=== PATIENT | female | born 1930 | race Caucasian/White ===

== ENCOUNTER 2016-12-05 16:43 | Emergency (ER) | payer MEDICARE, BC ==
[2016-12-05] MEDS ORDERED: Sodium Chloride 0.9% 10 ML Syringe FLUSH PRN (17:22)
[2016-12-05] MEDS ORDERED: Sodium Chloride 0.9% 1,000 ML IV STA (17:22)
--- NOTE | 2016-12-05 17:27 | EDM.PDOC ---
ED HPI GENERAL MEDICAL PROBLEM - General Chief Complaint: Abdominal Pain Stated Complaint: ABDOMINAL RT FLANK PAIN Time Seen by Provider: 12/05/16 17:15 Source of Information: Reports: Patient, Family, RN Notes Reviewed History Limitations: Reports: No Limitations - History of Present Illness INITIAL COMMENTS - FREE TEXT/NARRATIVE: 86-year-old female presents emergency department day complaint of abdominal pain , abdominal pain has been going on for several days she notes the pain is significantly worse when she eats she has had some chills but no fevers she is passing gas does get not stated with the pain no vomiting only history of abdominal surgeries a hysterectomy and hernia repair does have a history of small bowel obstruction - Related Data Allergies Allergy/AdvReac Type Severity Reaction Status Date / Time codeine AdvReac Nausea and Verified 12/05/16 17:05 Vomiting Home Meds: Home Meds Albuterol Sulfate [Proair Hfa] 8.5 gm IH ASDIRECTED 08/31/13 [History] Arformoterol [Brovana] 2 ml IH BID 08/31/13 [History] Aspirin [[place] Aspirin] 81 mg PO DAILY 08/31/13 [History] Budesonide [Pulmicort] 0.5 mg IH BID 08/31/13 [History] HCTZ/Triamterene [Maxzide 25-37.5 MG] 1 tab PO DAILY 08/31/13 [History] Omeprazole [Prilosec] 20 mg PO DAILY 08/31/13 [History] Simvastatin [Zocor] 20 mg PO BEDTIME 08/31/13 [History] Calcium Citrate/Vitamin D3 [Calcium Citrate with D Tablet] 1 tab PO BID [History] Acetaminophen/HYDROcodone [[place] 325-5 MG] 1 - 2 tab PO Q4H PRN #30 tablet 11/24 [Rx] Magnesium Oxide 400 mg PO DAILY #100 tablet 11/24/14 [Rx] ALPRAZolam [Xanax] 0.25 mg PO DAILY PRN 04/19/15 [History] *02 1 - 2 liter INH ASDIRECTED 10/10/15 [History] Albuterol [Proair HFA] 2 gm INH Q4HR PRN 10/22/15 [History] Past Medical History HEENT History: Reports: Cataract, Impaired Vision Cardiovascular History: Reports: Arrhythmia, CAD, High Cholesterol, Hypertension , [place], Stents Respiratory History: Reports: COPD Gastrointestinal History: Reports: Colon Polyp 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: 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 History: Reports: Fracture, Other (See Below) Other 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 History: compression fractures Psychiatric History: Reports: Anxiety, Depression - Infectious Disease History Infectious Disease History: Reports: Chicken Pox, Measles, Mumps - Past Surgical History Cardiovascular Surgical History: Reports: Coronary Artery Stent GI Surgical History: Reports: Colon, Colonoscopy, EGD, Hernia, Abdominal Social & Family History - Tobacco Use Smoking Status *Q: Never Smoker Second Hand Smoke Exposure: No - Recreational Drug Use Recreational Drug Use: No ED ROS GENERAL - Review of Systems Review Of Systems: See Below Constitutional: Reports: Chills HEENT: Reports: No Symptoms Respiratory: Reports: Shortness of Breath (None beyond baseline) Cardiovascular: Reports: No Symptoms GI/Abdominal: Reports: Abdominal Pain, Flatus, Nausea. Denies: Vomiting : Reports: No Symptoms 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: Reports: No Symptoms Skin: Reports: No Symptoms ED EXAM, GI/ABD - Physical Exam Exam: See Below Text/Narrative:: General: Female, not in any distress, alert and oriented x3 HEENT: head is atraumatic normocephalic, eyes pupils equal round reactive to light, sclera clear no conjunctivitis appreciated. Ears tympanic membranes clear and green landmarks and light reflex are present bilaterally canals are clear. Nose no septal deviation, nares are clear, no blood present. Mouth mucosa is moist and pink no erythema or exudate noted in soft palate, tongue is midline uvula is midline, dentition is intact. Neck: Supple no thyromegaly no tracheal deviation. Nodes: Cervical nodes subclavicular nodes nontender no palpable lymphadenopathy noted. Lungs: Breath sounds are distant on appreciate any adventitious noises CV: Regular rate and rhythm S1 and S2 appreciated no murmurs rubs or gallops noted. Abdomen: Soft, tender to palpation right upper quadrant also tender to palpation left lower corner, no palpable masses or organomegaly appreciated, no distention no guarding bowel sounds are present, . Neuro: Cranial nerves II through XII grossly intact Skin: Warm and dry, intact Extremities: No lower extremity edema appreciated, . Course - Vital Signs Last Recorded V/S: Last Vital Signs Temp 96.5 F 12/05/16 17:13 Pulse 63 12/05/16 18:33 Resp 16 12/05/16 17:13 BP 191/79 H 12/05/16 18:33 Pulse Ox 86 L 12/05/16 18:33 - Orders/Labs/Meds Orders: Active Orders 24 hr Category Date Time Status Peripheral IV Care [RC] . DIRECTED Care 12/05/16 17:23 Active Abdomen Pelvis w Cont [CT] Urgent Exams 12/05/16 17:22 Taken Iopamidol [Isovue-300 (61%)] Med 12/05/16 17:30 Active 68 ml IV . DIRECTED Sodium Chloride 0.9% [Normal Saline] 1,000 ml Med 12/05/16 17:22 Active IV .BOLUS Sodium Chloride 0.9% [Normal Saline] 70 ml Med 12/05/16 17:30 Active IV ASDIRECTED Sodium Chloride 0.9% [Saline Flush] Med 12/05/16 17:22 Active 10 ml FLUSH ASDIRECTED PRN Peripheral IV Insertion Adult [OM.PC] Urgent Oth 12/05/16 17:22 Ordered Medication Orders Sodium Chloride (Normal Saline) 1,000 mls @ 500 mls/hr IV .BOLUS STA Stop: 12/05/16 19:21 Last Admin: 12/05/16 17:36 Dose: 500 mls/hr Sodium Chloride (Normal Saline) 70 mls @ 3 mls/sec IV ASDIRECTED LEISA Last Admin: 12/05/16 17:51 Dose: 3 mls/sec Iopamidol (Isovue-300 (61%)) 68 ml IV . DIRECTED LEISA Last Admin: 12/05/16 17:51 Dose: 68 ml Sodium Chloride (Saline Flush) 10 ml FLUSH ASDIRECTED PRN PRN Reason: Keep Vein Open Last Admin: 12/05/16 17:51 Dose: 10 ml Labs: Laboratory Tests 12/05/16 12/05/16 12/05/16 Range/Units 17:22 17:22 17:22 WBC 9.5 (4.5-11.0) K/uL RBC 4.16 (3.30-5.50) M/uL Hgb 12.7 (12.0-15.0) g/dL Hct 38.4 (36.0-48.0) % MCV 92 (80-98) fL MCH 31 (27-31) pg MCHC 33 (32-36) % Plt Count 335 (150-400) K/uL Neut % (Auto) 70 H (36-66) % Lymph % (Auto) 21 L (24-44) % [place] % (Auto) 8 H (2-6) % Eos % (Auto) 1 L (2-4) % Baso % (Auto) 0 (0-1) % Sodium 131 L (140-148) mmol/L Potassium 3.8 (3.6-5.2) mmol/L Chloride 94 L (100-108) mmol/L Carbon Dioxide 27 (21-32) mmol/L Anion Gap 13.8 (5.0-14.0) mmol/L BUN 23 H (7-18) mg/dL Creatinine 1.0 (0.6-1.0) mg/dL Est Cr Clr Drug Dosing 28.92 mL/min Estimated GFR (MDRD) 53 L (>60) Glucose 117 H (74-106) mg/dL Lactic Acid 1.8 (0.4-2.0) mmol/L Calcium 8.4 L (8.5-10.1) mg/dL Total Bilirubin 0.4 (0.2-1.0) mg/dL AST 19 (15-37) U/L ALT 18 (12-78) U/L Alkaline Phosphatase 102 (46-116) U/L Troponin I < 0.017 (0.000-0.056) ng/mL Total Protein 7.0 (6.4-8.2) g/dL Albumin 3.3 L (3.4-5.0) g/dL Globulin 3.7 H (2.3-3.5) g/dL Albumin/Globulin Ratio 0.9 L (1.2-2.2) Lipase 132 (73-393) U/L Urine Color Urine Appearance Urine pH (4.5-8.0) Ur Specific [place] (1.008-1.030) Urine Protein (NEGATIVE) mg/dL Urine Glucose (UA) (NEGATIVE) mg/dL Urine Ketones (NEGATIVE) mg/dL Urine Occult Blood (NEGATIVE) Urine Nitrite (NEGATIVE) Urine Bilirubin (NEGATIVE) Urine Urobilinogen (NORMAL) mg/dL Ur Leukocyte Esterase (NEGATIVE) Urine RBC (0-5) Urine WBC (0-5) Ur Epithelial Cells Amorphous Sediment Urine Bacteria Urine Mucus 12/05/16 Range/Units 18:33 WBC (4.5-11.0) K/uL RBC (3.30-5.50) M/uL Hgb (12.0-15.0) g/dL Hct (36.0-48.0) % MCV (80-98) fL MCH (27-31) pg MCHC (32-36) % Plt Count (150-400) K/uL Neut % (Auto) (36-66) % Lymph % (Auto) (24-44) % [place] % (Auto) (2-6) % Eos % (Auto) (2-4) % Baso % (Auto) (0-1) % Sodium (140-148) mmol/L Potassium (3.6-5.2) mmol/L Chloride (100-108) mmol/L Carbon Dioxide (21-32) mmol/L Anion Gap (5.0-14.0) mmol/L BUN (7-18) mg/dL Creatinine (0.6-1.0) mg/dL Est Cr Clr Drug Dosing mL/min Estimated GFR (MDRD) (>60) Glucose (74-106) mg/dL Lactic Acid (0.4-2.0) mmol/L Calcium (8.5-10.1) mg/dL Total Bilirubin (0.2-1.0) mg/dL AST (15-37) U/L ALT (12-78) U/L Alkaline Phosphatase (46-116) U/L Troponin I (0.000-0.056) ng/mL Total Protein (6.4-8.2) g/dL Albumin (3.4-5.0) g/dL Globulin (2.3-3.5) g/dL Albumin/Globulin Ratio (1.2-2.2) Lipase (73-393) U/L Urine Color Yellow Urine Appearance Clear Urine pH 7.0 (4.5-8.0) Ur Specific [place] 1.005 L (1.008-1.030) Urine Protein Negative (NEGATIVE) mg/dL Urine Glucose (UA) Normal (NEGATIVE) mg/dL Urine Ketones Negative (NEGATIVE) mg/dL Urine Occult Blood Negative (NEGATIVE) Urine Nitrite Negative (NEGATIVE) Urine Bilirubin Negative (NEGATIVE) Urine Urobilinogen Normal (NORMAL) mg/dL Ur Leukocyte Esterase Negative (NEGATIVE) Urine RBC 0-5 (0-5) Urine WBC 0-5 (0-5) Ur Epithelial Cells Rare Amorphous Sediment Rare Urine Bacteria Not seen Urine Mucus Few Meds: Medications Generic Name Dose Route Start Last Admin Trade Name Freq PRN Reason Stop Dose Admin Sodium Chloride 1,000 mls @ 500 mls/hr 12/05/16 17:22 12/05/16 17:36 Normal Saline IV 12/05/16 19:21 500 mls/hr .BOLUS STA Administration Sodium Chloride 70 mls @ 3 mls/sec 12/05/16 17:30 12/05/16 17:51 Normal Saline IV 3 mls/sec ASDIRECTED LEISA Administration Iopamidol 68 ml 12/05/16 17:30 12/05/16 17:51 Isovue-300 (61%) IV 68 ml . DIRECTED LEISA Administration Sodium Chloride 10 ml 12/05/16 17:22 12/05/16 17:51 Saline Flush FLUSH 10 ml ASDIRECTED PRN Administration Keep Vein Open Discontinued Medications Generic Name Dose Route Start Last Admin Trade Name F[place]ran PRN Reason Stop Dose Admin Sodium Chloride 10 ml 12/05/16 17:30 12/05/16 17:36 Saline Flush FLUSH 12/05/16 17:31 10 ml ONETIME ONE Administration Departure - Departure Time of Disposition: 19:12 Disposition: Home, Self-Care 01 Condition: good Clinical Impression: Pneumonia Qualifiers: Pneumonia type: due to unspecified organism Laterality: left Lung location: lower lobe of lung Qualified Code(s): J18.1 - Lobar pneumonia, unspecified organism - Discharge Information Forms: ED Department Discharge Additional Instructions: Take full course of antibiotics, followup with your primary care provider on Saturday - My Orders Last 24 Hours: My Active Orders 12/05/16 17:22 Abdomen Pelvis w Cont [CT] Urgent Sodium Chloride 0.9% [Normal Saline] 1,000 ml IV .BOLUS Sodium Chloride 0.9% [Saline Flush] 10 ml FLUSH ASDIRECTED PRN Peripheral IV Insertion Adult [OM.PC] Urgent 12/05/16 17:23 Peripheral IV Care [RC] . DIRECTED 12/05/16 17:30 Iopamidol [Isovue-300 (61%)] 68 ml IV . DIRECTED Sodium Chloride 0.9% [Normal Saline] 70 ml IV ASDIRECTED - Assessment/Plan Last 24 Hours: My Active Orders 12/05/16 17:22 Abdomen Pelvis w Cont [CT] Urgent Sodium Chloride 0.9% [Normal Saline] 1,000 ml IV .BOLUS Sodium Chloride 0.9% [Saline Flush] 10 ml FLUSH ASDIRECTED PRN Peripheral IV Insertion Adult [OM.PC] Urgent 12/05/16 17:23 Peripheral IV Care [RC] . DIRECTED 12/05/16 17:30 Iopamidol [Isovue-300 (61%)] 68 ml IV . DIRECTED Sodium Chloride 0.9% [Normal Saline] 70 ml IV ASDIRECTED Plan: Assessment Acuity = acute Site and laterality = community-acquired pneumonia left lower lobe complicated patient with known history of chronic obstructive pulmonary disease Etiology = suspicious for bacterial cause Manifestations = chills Location of injury = home CBC within normal limits sodium low at 131 consistent hyponatremia albumin low at 3.3 consistent hypoalbuminemia Lab values = CT scan of the abdomen shows a new infiltrate in the left lower lobe concerning for pneumonia otherwise no acute intra-abdominal process noted Plan Discussed hospitalization versus discharge to home outpatient therapy she would like to try outpatient treatment she does have followup appointment with her primary care on Saturday of this week will start her on Levaquin 500 by mouth daily x7 days Patient was in agreement with the plan all questions were answered, they were instructed to return to the emergency department or call for worsening symptoms. This note was dictated using [employer] voice recognition software please call with any questions.
[2016-12-05] MEDS ORDERED: Sodium Chloride 0.9% 10 ML Syringe FLUSH ONE (17:30)
[2016-12-05] MEDS ORDERED: Iopamidol 612 MG/ML 100 ML Bottle IV SCH (17:30)
[2016-12-05 18:34] VITALS: BP 191/79
== END 2016-12-05 19:30 | disposition home or self-care (01) ==
LOC: JP.ED 16:43
DX: J18.1 Lobar pneumonia, unspecified organism (principal); H54.7 Unspecified visual loss; E78.00 Pure hypercholesterolemia, unspecified; F41.9 Anxiety disorder, unspecified; I25.2 Old myocardial infarction; Z95.5 Presence of coronary angioplasty implant and graft; Z88.5 Allergy status to narcotic agent; Z79.82 Long term (current) use of aspirin; Z79.899 Other long term (current) drug therapy
CPT/HCPCS: 36415; 74177; 80053; 81001; 83605; 83690; 84484; 85025; 96360; 96361; 99283; 99284; J7030; J7040; J7050; Q9967

== ENCOUNTER 2017-04-25 19:38 | Emergency (ER) | payer MEDICARE, BC ==
[2017-04-25] MEDS ORDERED: Acetaminophen/HYDROcodone 325-5 MG Tab PO ONE (21:45)
--- NOTE | 2017-04-25 21:51 | EDM.PDOC ---
ED HPI GENERAL MEDICAL PROBLEM - General Chief Complaint: Back Pain or Injury Stated Complaint: HURT BACK Time Seen by Provider: 04/25/17 21:33 Source of Information: Reports: Patient, Family History Limitations: Reports: No Limitations - History of Present Illness INITIAL COMMENTS - FREE TEXT/NARRATIVE: 86 years old female patient presented with chief complaint of sudden onset low back pain after moving a chair at home. Patient lived by herself. No falls. She is still able to walk. Pain is worse with any movement or activities or bending or twisting. Previous history of compression fracture of the thoracic spine. Denies any focal weakness or numbness in her legs. No loss of control of urine or stool. Denies any fever. Denies any urinary symptoms. Lower back Pain Score (Numeric/FACES): 8 - Related Data Allergies Allergy/AdvReac Type Severity Reaction Status Date / Time codeine AdvReac Nausea and Verified 12/05/16 17:05 Vomiting Home Meds: Home Meds Albuterol Sulfate [Proair Hfa] 8.5 gm IH ASDIRECTED 08/31/13 [History] Arformoterol [Brovana] 2 ml IH BID 08/31/13 [History] Aspirin [[place] Aspirin] 81 mg PO DAILY 08/31/13 [History] Budesonide [Pulmicort] 0.5 mg IH BID 08/31/13 [History] HCTZ/Triamterene [Maxzide 25-37.5 MG] 1 tab PO DAILY 08/31/13 [History] Omeprazole [Prilosec] 20 mg PO DAILY 08/31/13 [History] Simvastatin [Zocor] 20 mg PO BEDTIME 08/31/13 [History] Calcium Citrate/Vitamin D3 [Calcium Citrate with D Tablet] 1 tab PO BID [History] Acetaminophen/HYDROcodone [[place] 325-5 MG] 1 - 2 tab PO Q4H PRN #30 tablet 11/24 [Rx] Magnesium Oxide 400 mg PO DAILY #100 tablet 11/24/14 [Rx] ALPRAZolam [Xanax] 0.25 mg PO DAILY PRN 04/19/15 [History] *02 1 - 2 liter INH ASDIRECTED 10/10/15 [History] Albuterol [Proair HFA] 2 gm INH Q4HR PRN 10/22/15 [History] Past Medical History HEENT History: Reports: Cataract, Impaired Vision Cardiovascular History: Reports: Arrhythmia, CAD, High Cholesterol, Hypertension , [place], Stents Respiratory History: Reports: COPD Gastrointestinal History: Reports: Colon 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 History: Reports: Fracture, Other (See Below) Other 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 History: compression fractures Psychiatric History: Reports: Anxiety, Depression - Infectious Disease History Infectious Disease History: Reports: Chicken Pox - Past Surgical History Cardiovascular Surgical History: Reports: Coronary Artery Stent GI Surgical History: Reports: Colon, Colonoscopy, EGD, Hernia, Abdominal Social & Family History - Tobacco Use Smoking Status *Q: Never Smoker Second Hand Smoke Exposure: No - Caffeine Use Caffeine Use: Reports: Coffee - Recreational Drug Use Recreational Drug Use: No ED ROS GENERAL - Review of Systems Review Of Systems: ROS reveals no pertinent complaints other than HPI. ED EXAM,LOWER BACK PAIN/INJURY - Physical Exam Exam: See Below Exam Limited By: No Limitations General Appearance: Alert, No Apparent Distress Head: Atraumatic, Normocephalic Neck: Normal Inspection, Supple, Non-Tender, Full Range of Motion Respiratory/Chest: No Respiratory Distress, Lungs Clear, Normal Breath Sounds, No Accessory Muscle Use, Chest Non-Tender Cardiovascular: Normal Peripheral Pulses, Regular Rate, Rhythm, No Edema, No Gallop, No JVD, No Murmur, No Rub GI/Abdominal: Normal Bowel Sounds, Soft, Non-Tender, No Organomegaly, No Distention, No Abnormal Bruit, No Mass Back Exam: Normal Inspection, Decreased Range of Motion (Tenderness over the lower lumbar spine. No deformity. No erythema.), Vertebral Tenderness. No: Full Range of Motion, CVA Tenderness (L) Course - Vital Signs Last Recorded V/S: Last Vital Signs Temp 36.0 C 04/25/17 20:57 Pulse 73 04/25/17 21:57 Resp 20 04/25/17 21:57 BP 208/79 H 04/25/17 21:57 Pulse Ox 91 L 04/25/17 21:57 - Orders/Labs/Meds Orders: Active Orders 24 hr Category Date Time Status Lumbar Spine wo Cont [CT] Stat Exams 04/25/17 21:46 Taken Meds: Medications Discontinued Medications Generic Name Dose Route Start Last Admin Trade Name Freq PRN Reason Stop Dose Admin Hydrocodone Bitart/Acetaminophen 1 tab 04/25/17 21:45 10/05/17 22:01 [place] 325-5 Mg PO 04/25/17 21:46 1 tab ONETIME ONE Administration - Re-Assessments/Exams Free Text/Narrative Re-Assessment/Exam: 04/25/17 21:50 Patient was seen and examined shortly after arrival. Given one bottle of [place] 5 /[address] lumbar spine shows compression deformity at L3. Also disc protrusion at L4-L5 was foraminal narrowing. Patient was advised that she needs admission for pain control and possible placement. The patient and her family refused admission and signed AGAINST MEDICAL ADVICE. and stated that her pain improved and she is feeling that she will be safe at home especially her family will stay with her tonight and her daughters, to stay with her tomorrow as well. Advised to follow-up with her primary doctor tomorrow and review CT results and possible referral to her neurosurgeon back. Patient agrees with the plan. 04/25/17 23:50 Departure - Departure Time of Disposition: 23:53 Disposition: Against Medical Advice 07 Condition: Fair Clinical Impression: Compression deformity of vertebra - Discharge Information Instructions: Back Injury Prevention, [id number], Back Pain, Adult, Easy-to- Read, Pain Medicine Instructions, [id number] Referrals: Dennis Ruiz MD [Primary Care Provider] - Forms: ED Department Discharge Additional Instructions: Follow-up with her primary doctor tomorrow for reevaluation and CT results review. Come back if symptom worsen - My Orders Last 24 Hours: My Active Orders 04/25/17 21:46 Lumbar Spine wo Cont [CT] Stat - Assessment/Plan Last 24 Hours: My Active Orders 04/25/17 21:46 Lumbar Spine wo Cont [CT] Stat
[2017-04-25 21:58] VITALS: BP 208/79
== END 2017-04-26 00:09 | disposition left against medical advice (07) ==
LOC: JP.ED 19:38
DX: M43.8X6 Other specified deforming dorsopathies, lumbar region (principal); I25.10 Atherosclerotic heart disease of native coronary artery without angina pectoris; E78.00 Pure hypercholesterolemia, unspecified; I10 Essential (primary) hypertension; I25.2 Old myocardial infarction; J44.9 Chronic obstructive pulmonary disease, unspecified; F41.9 Anxiety disorder, unspecified; F32.9 Major depressive disorder, single episode, unspecified; Z95.5 Presence of coronary angioplasty implant and graft; Z98.890 Other specified postprocedural states; Z79.899 Other long term (current) drug therapy; Z79.82 Long term (current) use of aspirin; Z88.5 Allergy status to narcotic agent
CPT/HCPCS: 72131; 99284; A9270

== ENCOUNTER 2017-06-14 10:32 | Emergency (ER) | payer MEDICARE, BC ==
[2017-06-14 11:41] VITALS: BP 198/77
--- NOTE | 2017-06-14 12:13 | EDM.PDOC ---
ED HPI GENERAL MEDICAL PROBLEM - General Chief Complaint: Chest Pain Stated Complaint: PAIN UNDER LEFT ARM,SHOULDER Time Seen by Provider: 06/14/17 11:20 Source of Information: Reports: Patient, Family History Limitations: Reports: No Limitations - History of Present Illness INITIAL COMMENTS - FREE TEXT/NARRATIVE: 87-year-old female who recently underwent a spinal procedure was home this morning when she developed a left-sided cramp and spasm in her chest extending around the anterior aspect of the chest. There was some difficulty breathing temporarily but it went away. She told her family and they wanted her checked for a "heart attack". She has no cough or shortness of breath. Onset: Sudden Location: Reports: Chest Severity: Moderate Worsens with: Reports: Other (Hurts to palpate the sore area), Movement Left Chest Pain Score (Numeric/FACES): 2 - Related Data Allergies Allergy/AdvReac Type Severity Reaction Status Date / Time codeine AdvReac Nausea and Verified 06/14/17 11:16 Vomiting Home Meds: Home Meds Albuterol Sulfate [Proair Hfa] 8.5 gm IH ASDIRECTED 08/31/13 [History] Aspirin [[place] Aspirin] 81 mg PO DAILY 08/31/13 [History] Budesonide [Pulmicort] 0.5 mg IH BID 08/31/13 [History] HCTZ/Triamterene [Maxzide 25-37.5 MG] 1 tab PO DAILY 08/31/13 [History] Omeprazole [Prilosec] 20 mg PO DAILY 08/31/13 [History] Simvastatin [Zocor] 20 mg PO BEDTIME 08/31/13 [History] Calcium Citrate/Vitamin D3 [Calcium Citrate with D Tablet] 1 tab PO BID [History] Magnesium Oxide 400 mg PO DAILY #100 tablet 11/24/14 [Rx] ALPRAZolam [Xanax] 0.25 mg PO BID PRN 04/19/15 [History] *02 1 - 2 liter INH ASDIRECTED 10/10/15 [History] Albuterol [Proair HFA] 2 gm INH Q4HR PRN 10/22/15 [History] Acetaminophen 1 tab PO Q4H PRN 06/14/17 [History] Acetaminophen/HYDROcodone [[place] 325-5 MG] 1 tab PO Q6H PRN 06/14/17 [History] Albuterol [Proventil Neb Soln] 1 dose INH ASDIRECTED 06/14/17 [History] Docusate Sodium [Colace] 1 cap PO BID 06/14/17 [History] Ibuprofen 400 mg PO ASDIRECTED 06/14/17 [History] Ipratropium [Atrovent] 1 dose INH QID 06/14/17 [History] Lutein Extract/Zeaxanthin Ext [Lutein 15 MG Softgel] 1 tab PO DAILY 06/14/17 [ History] Polyethylene Glycol 3350 [MiraLAX] 17 gm PO BEDTIME 06/14/17 [History] Past Medical History HEENT History: Reports: Cataract, Impaired Vision Cardiovascular History: Reports: Arrhythmia, CAD, High Cholesterol, Hypertension , [place], Stents Respiratory History: Reports: COPD Gastrointestinal History: Reports: 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: 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 History: Reports: Fracture, Other (See Below) Other 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 History: compression fractures Psychiatric History: Reports: Anxiety, Depression - Infectious Disease History Infectious Disease History: Reports: Chicken Pox - Past Surgical History HEENT Surgical History: Reports: Cataract Surgery Cardiovascular Surgical History: Reports: Coronary Artery Stent GI Surgical History: Reports: Colon, Colonoscopy, EGD, Hernia, Abdominal Female Surgical History: Reports: Hysterectomy Social & Family History - Tobacco Use Smoking Status *Q: Never Smoker Second Hand Smoke Exposure: No - Caffeine Use Caffeine Use: Reports: Coffee - Recreational Drug Use Recreational Drug Use: No ED ROS GENERAL - Review of Systems Review Of Systems: See Below Constitutional: Denies: Fever, Chills, Malaise Respiratory: Reports: Pleuritic Chest Pain. Denies: Shortness of Breath Cardiovascular: Reports: Chest Pain. Denies: Palpitations GI/Abdominal: Denies: Abdominal Pain, Nausea, Vomiting 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: Reports: Back Pain (Chronic and stable) Skin: Denies: Bruising ED EXAM, GENERAL - Physical Exam Exam: See Below Exam Limited By: No Limitations General Appearance: Alert, No Apparent Distress Respiratory/Chest: No Respiratory Distress, Other (Patient has decreased breath sounds on the left side but no rales or rhonchi, no wheezing). No: Chest Non- Tender (Patient has tenderness to palpation along the left anterior costochondral area) GI/Abdominal: Non-Tender Course - Vital Signs Last Recorded V/S: Last Vital Signs Temp 96.3 F 06/14/17 11:12 Pulse 70 06/14/17 11:40 Resp 16 06/14/17 11:40 BP 198/77 H 06/14/17 11:40 Pulse Ox 93 L 06/14/17 11:40 - Orders/Labs/Meds Labs: Laboratory Tests 06/14/17 Range/Units 11:42 Troponin I 0.017 (0.000-0.056) ng/mL - Re-Assessments/Exams Free Text/Narrative Re-Assessment/Exam: 06/14/17 12:12 Troponin was negative. Patient was reassured that this was not cardiac pain which is all that she was concerned about. Over the next several days she'll return if worsening or concerns. Departure - Departure Time of Disposition: 12:24 Disposition: Home, Self-Care 01 Condition: Good Clinical Impression: Costochondritis, Atypical chest pain - Discharge Information Instructions: Nonspecific Chest Pain, [id number] Referrals: Dennis Ruiz MD [Primary Care Provider] - Forms: ED Department Discharge Care Plan Goals: Continue with your current medications, increase activity as tolerated and return anytime if worsening or concerns. A heating pad to the sore area and ibuprofen or naproxen may help.
== END 2017-06-14 12:24 | disposition home or self-care (01) ==
LOC: JP.ED 10:32
DX: M94.0 Chondrocostal junction syndrome [Tietze] (principal); I10 Essential (primary) hypertension; J44.9 Chronic obstructive pulmonary disease, unspecified; E78.00 Pure hypercholesterolemia, unspecified; Z79.899 Other long term (current) drug therapy; Z88.5 Allergy status to narcotic agent; Z79.82 Long term (current) use of aspirin
CPT/HCPCS: 36415; 84484; 99284

== ENCOUNTER 2017-06-18 18:40 | Inpatient (IN) | payer MEDICARE, BC ==
[2017-06-18] MEDS ORDERED: Albuterol/Ipratropium 3.0-0.5 MG/3 ML Neb Soln NEB ONE (19:05)
[2017-06-18] MEDS ORDERED: Sodium Chloride 0.9% 10 ML Syringe FLUSH PRN (19:05)
[2017-06-18] MEDS ORDERED: Sodium Chloride 0.9% 1,000 ML IV SCH (19:15)
[2017-06-18] MEDS ORDERED: Acetaminophen/HYDROcodone 325-5 MG Tab PO ONE (19:44)
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
[2017-06-18] MEDS ORDERED: Albuterol 0.083% 2.5 MG/3 ML Neb Soln NEB ONE (19:57)
[2017-06-18] MEDS ORDERED: Budesonide 0.5 MG/2 ML Neb Susp NEB ONE (19:57)
[2017-06-18] MEDS ORDERED: Furosemide 20 MG/2 ML VIAL IVPUSH ONE (23:15)
[2017-06-18] MEDS ORDERED: Zolpidem 5 MG Tab PO PRN (23:15)
[2017-06-18] MEDS ORDERED: Acetaminophen 325 MG Tab PO PRN (23:15)
[2017-06-18] MEDS ORDERED: Albuterol 0.083% 2.5 MG/3 ML Neb Soln NEB PRN (23:15)
[2017-06-18] MEDS ORDERED: Docusate Sodium 100 MG Cap PO PRN (23:15)
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
[2017-06-18] MEDS: methylPREDNISolone Sodium Succinate 125 MG/2 ML SDV IVPUSH SCH (23:58)
[2017-06-19] MEDS: Acetaminophen 325 MG Tab PO PRN (00:48)
[2017-06-19] MEDS: Acetaminophen/HYDROcodone 325-5 MG Tab PO PRN ×3 (02:53→16:30)
[2017-06-19] MEDS: Albuterol/Ipratropium 3.0-0.5 MG/3 ML Neb Soln NEB SCH ×4 (07:23→19:59)
[2017-06-19] MEDS ORDERED: Pantoprazole 40 MG Vial IV SCH ×2 (07:30→09:00)
[2017-06-19] MEDS: Hydrochlorothiazide/Triamterene 25-37.5 Tab PO SCH (08:34)
[2017-06-19] MEDS: Aspirin 81 MG Tab.EC PO SCH (08:34)
[2017-06-19] MEDS: Enoxaparin 40 MG/0.4 ML Syringe SUBCUT SCH (08:34)
[2017-06-19] MEDS: Magnesium Oxide 400 MG Tab PO SCH (08:34)
--- NOTE | 2017-06-19 09:08 | CR ---
Portable chest Comparison: 23 October 2015. Findings: There has been development of cardiomegaly. There is mild vascular engorgement. There is mi ld increase of the interstitial markings. There are no pleural effusions. There are no alveolar infil trates. Impression: 1. Mild CHF.
[2017-06-19] MEDS: methylPREDNISolone Sodium Succinate 125 MG/2 ML SDV IVPUSH SCH ×3 (10:11→23:57)
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
[2017-06-19] MEDS ORDERED: Furosemide 20 MG/2 ML VIAL IVPUSH ONE (11:45)
[2017-06-19] MEDS: ALPRAZolam 0.25 MG Tab PO PRN ×2 (11:56→20:47)
[2017-06-19] MEDS: Polyethylene Glycol 3350 Powder 17 GM Packet PO SCH (19:59)
[2017-06-19] MEDS: Simvastatin 20 MG Tab PO SCH (19:59)
[2017-06-20] MEDS: Acetaminophen 325 MG Tab PO PRN (02:51)
[2017-06-20] MEDS: Acetaminophen/HYDROcodone 325-5 MG Tab PO PRN ×3 (05:42→22:17)
[2017-06-20] MEDS: Albuterol/Ipratropium 3.0-0.5 MG/3 ML Neb Soln NEB SCH ×4 (07:21→20:41)
[2017-06-20] MEDS: Pantoprazole 40 MG Tab.CR PO SCH (07:26)
[2017-06-20] MEDS: methylPREDNISolone Sodium Succinate 125 MG/2 ML SDV IVPUSH SCH (07:27)
[2017-06-20] MEDS ORDERED: Furosemide 40 MG/4 ML VIAL IVPUSH ONE (08:27)
[2017-06-20] MEDS ORDERED: Furosemide 20 MG/2 ML VIAL IV ONE (08:45)
[2017-06-20] MEDS: Enoxaparin 40 MG/0.4 ML Syringe SUBCUT SCH (08:49)
[2017-06-20] MEDS: Aspirin 81 MG Tab.EC PO SCH (08:49)
[2017-06-20] MEDS: ALPRAZolam 0.25 MG Tab PO PRN ×2 (08:50→22:20)
[2017-06-20] MEDS: Hydrochlorothiazide/Triamterene 25-37.5 Tab PO SCH (08:50)
[2017-06-20] MEDS: Magnesium Oxide 400 MG Tab PO SCH (08:50)
--- NOTE | 2017-06-20 10:48 | PCM.PN ---
- General Info Date of Service: 06/20/17 Subjective Update: Ms. Valdez has been stable since yesterday, but continues to experience increased shortness of breath from baseline. She was qualified for home oxygen today based and an oxygen saturation on room air at rest of 86%. She remains somewhat weak and unsteady with ambulation and has been encouraged to consider short-term [facility] placement for restorative physical therapy and occupational therapy. Functional Status: Reports: Tolerating Diet, Urinating - Review of Systems General: Reports: Weakness. Denies: Fever, Chills Pulmonary: Reports: Shortness of Breath. Denies: Pleuritic Chest Pain, Cough, Sputum, Hemoptysis, Wheezing Cardiovascular: Reports: Dyspnea on Exertion, Edema. Denies: Chest Pain, Palpitations, Orthopnea, PND Gastrointestinal: Reports: No Symptoms - Patient Data Vitals - Most Recent: Last Vital Signs Temp 97.8 F 06/20/17 07:44 Pulse 92 06/20/17 07:44 Resp 17 06/20/17 07:44 BP 165/68 H 06/20/17 07:44 Pulse Ox 89 L 06/20/17 07:44 Weight - Most Recent: 109 lb 8 oz I&O - Last 24 Hours: Intake & Output 06/19/17 06/20/17 06/20/17 22:59 06:59 14:59 Intake Total 500 500 520 Output Total 225 650 400 Balance 275 -150 120 Lab Results Last 24 Hours: Laboratory Results - last 24 hr 06/20/17 Range/Units 04:33 Sodium 138 L (140-148) mmol/L Potassium 3.6 (3.6-5.2) mmol/L Chloride 99 L (100-108) mmol/L Carbon Dioxide 31 (21-32) mmol/L Anion Gap 11.6 (5.0-14.0) mmol/L BUN 29 H (7-18) mg/dL Creatinine 1.0 (0.6-1.0) mg/dL Est Cr Clr Drug Dosing 28.47 mL/min Estimated GFR (MDRD) 52 L (>60) Glucose 140 H (74-106) mg/dL Calcium 8.6 (8.5-10.1) mg/dL Magnesium 1.8 (1.8-2.4) mg/dL Med Orders - Current: Current Medications Acetaminophen (Tylenol) 650 mg PO Q4H PRN PRN Reason: Pain (Mild 1-3)/fever Last Admin: 06/20/17 02:51 Dose: 650 mg Acetaminophen (Tylenol) 325 mg PO Q4H PRN PRN Reason: Pain Hydrocodone Bitart/Acetaminophen ([place] 325-5 Mg) 1 tab PO Q6H PRN PRN Reason: Pain Last Admin: 06/20/17 05:42 Dose: 1 tab Albuterol (Proventil Neb Soln) 2.5 mg NEB Q4H PRN PRN Reason: Shortness Of Breath/wheezing Last Admin: 06/19/17 04:15 Dose: 2.5 mg Albuterol/Ipratropium (Duoneb 3.0-0.5 Mg/3 Ml) 3 ml NEB QIDRT [facility] Last Admin: 06/20/17 07:21 Dose: 3 ml Alprazolam (Xanax) 0.25 mg PO BID PRN PRN Reason: Anxiety Last Admin: 06/20/17 08:50 Dose: 0.25 mg Aspirin (Halfprin) 81 mg PO DAILY [facility] Last Admin: 06/20/17 08:49 Dose: 81 mg Docusate Sodium (Colace) 100 mg PO BID PRN PRN Reason: Constipation Enoxaparin Sodium (Lovenox) 40 mg SUBCUT DAILY [facility] Last Admin: 06/20/17 08:49 Dose: 40 mg Magnesium Oxide (Magnesium Oxide) 400 mg PO DAILY [facility] Last Admin: 06/20/17 08:50 Dose: 400 mg Pantoprazole Sodium (Protonix) 40 mg PO ACBREAKFAST [facility] Last Admin: 06/20/17 07:26 Dose: 40 mg Polyethylene Glycol (Miralax) 17 gm PO BEDTIME [facility] Last Admin: 06/19/17 19:59 Dose: Not Given Potassium Chloride (Klor-Con M20) 20 meq PO BID [facility] Prednisone (Prednisone) 40 mg PO WITHBREAKFAST [facility] Simvastatin (Zocor) 20 mg PO BEDTIME [facility] Last Admin: 06/19/17 19:59 Dose: 20 mg Sodium Chloride (Saline Flush) 10 ml FLUSH ASDIRECTED PRN PRN Reason: Keep Vein Open Triamterene/HCTZ (Maxzide 25-37.5 Mg) 1 each PO DAILY [facility] Last Admin: 06/20/17 08:50 Dose: 1 each Zolpidem Tartrate (Ambien) 5 mg PO BEDTIME PRN PRN Reason: Insomnia Discontinued Medications Hydrocodone Bitart/Acetaminophen ([place] 325-5 Mg) 1 tab PO ONETIME ONE Stop: 06/18/17 19:45 Last Admin: 06/18/17 19:48 Dose: 1 tab Albuterol (Proventil Neb Soln) 2.5 mg NEB ONETIME ONE Stop: 06/18/17 19:58 Last Admin: 06/18/17 20:29 Dose: 2.5 mg Albuterol/Ipratropium (Duoneb 3.0-0.5 Mg/3 Ml) 3 ml NEB ONETIME ONE Stop: 06/18/17 19:06 Last Admin: 06/18/17 19:11 Dose: 3 ml Budesonide (Pulmicort) 0.5 mg NEB ONETIME ONE Stop: 06/18/17 19:58 Last Admin: 06/18/17 20:15 Dose: 0.5 mg Furosemide (Lasix) 20 mg IVPUSH NOW ONE Stop: 06/18/17 23:16 Last Admin: 06/18/17 23:58 Dose: 20 mg Furosemide (Lasix) 20 mg IVPUSH ONETIME ONE Stop: 06/19/17 11:46 Last Admin: 06/19/17 11:54 Dose: 20 mg Furosemide (Lasix) 20 mg IV ONETIME ONE Stop: 06/20/17 08:46 Last Admin: 06/20/17 08:49 Dose: 20 mg Sodium Chloride (Normal Saline) 1,000 mls @ 100 mls/hr IV ASDIRECTED [facility] Last Admin: 06/18/17 19:16 Dose: 100 mls/hr Methylprednisolone Sodium Succinate (Solu-Medrol) 62.5 mg IVPUSH Q8H [facility] Last Admin: 06/20/17 07:27 Dose: 62.5 mg Pantoprazole Sodium (Protonix Iv) 40 mg IV ACBREAKFAST [facility] Pantoprazole Sodium (Protonix Iv) 40 mg IV Q24H [facility] Last Admin: 06/19/17 10:11 Dose: 40 mg - Exam Quality Assessment: Supplemental Oxygen, DVT Prophylaxis General: Alert, Oriented, Cooperative Lungs: Decreased Breath Sounds. No: Crackles, Rales, Rhonchi, Wheezing Cardiovascular: Regular Rate, Regular Rhythm, No Murmurs GI/Abdominal Exam: Soft, Non-Tender, No Organomegaly, No Distention Extremities: Non-Tender, Pedal Edema Skin: Warm, Dry - Problem List Review Problem List Initiated/Reviewed/Updated: Yes - My Orders Last 24 Hours: My Active Orders 06/20/17 07:30 Pantoprazole [ProTONIX] 40 mg PO ACBREAKFAST 06/20/17 08:00 RT Evaluate for Home Oxygen [RC] Click to Edit 06/20/17 10:45 Potassium Chloride [Klor-Con M20] 20 meq PO BID 06/21/17 05:00 BASIC METABOLIC PANEL,BMP [CHEM] Timed 06/21/17 08:00 predniSONE 40 mg PO WITHBREAKFAST - Plan Plan:: ASSESSMENT / PLAN COPD exacerbation- with modest improvement since yesterday. -oxygen therapy 2 liter per nc -albuterol nebulizer every 4 hours as needed for wheezing and cough -Prednisone 40 mg by mouth daily -Duo nebulizer ; schedule nebulizer every 4 hours -Anticipate discharge to home with home oxygen Lower Leg edema -IV Lasix 20 mg today -Follow-up BMP in a.m. -wrap legs with lucas wrap Maintenance issues -Orders home meds: most on hold, will reassess in am -Nutrition: regular diet -Meade catheter not indicated at this time -DVT: Lovenox 40 units subcut -PPI; IV Protonix 40mg daily -consult OT for discharge planning -consult PT for strengthening. -consult Spiritual CODE STATUS: FULL CODE Admission status: Admit to [address] [place] [address] justification. This patient will be admitted for inpatient services and is medically appropriate meeting medical necessity for inpatient admission as outlined in my documentation. I reasonably expect the patient will require inpatient services that span. Time over 2 midnights. I reasonably expect this patient to be discharged or transferred within 96 hours after admission to the critical access hospital. Disposition; plan for discharge tomorrow, home versus [facility] placement Primary care provider: Dr. Saunders
[2017-06-20] MEDS: Potassium Chloride 20 MEQ Tab.ER PO SCH ×2 (11:21→16:59)
[2017-06-20] MEDS: Simvastatin 20 MG Tab PO SCH (20:39)
[2017-06-20] MEDS: Polyethylene Glycol 3350 Powder 17 GM Packet PO SCH (20:44)
[2017-06-21] MEDS: Acetaminophen/HYDROcodone 325-5 MG Tab PO PRN ×2 (05:33→13:40)
[2017-06-21] MEDS: Albuterol/Ipratropium 3.0-0.5 MG/3 ML Neb Soln NEB SCH ×2 (07:20→10:50)
[2017-06-21] MEDS ORDERED: predniSONE 20 MG Tab PO SCH (08:00)
[2017-06-21] MEDS: Enoxaparin 40 MG/0.4 ML Syringe SUBCUT SCH (08:24)
[2017-06-21] MEDS: Hydrochlorothiazide/Triamterene 25-37.5 Tab PO SCH (08:24)
[2017-06-21] MEDS: Pantoprazole 40 MG Tab.CR PO SCH (08:24)
[2017-06-21] MEDS: Magnesium Oxide 400 MG Tab PO SCH (08:24)
[2017-06-21] MEDS: Potassium Chloride 20 MEQ Tab.ER PO SCH (08:24)
[2017-06-21] MEDS: Aspirin 81 MG Tab.EC PO SCH (08:24)
[2017-06-21] MEDS: ALPRAZolam 0.25 MG Tab PO PRN (08:30)
[2017-06-21] MEDS ORDERED: Furosemide 40 MG/4 ML VIAL IVPUSH ONE (10:00)
[2017-06-21 10:59] VITALS: BP 167/72
--- NOTE | 2017-06-21 13:45 | PCM.DCSUM1 ---
Discharge Summary - Hospital Course Brief History: Ms. Valdez is an 87-year-old woman who was admitted through the emergency department because of increased shortness of breath related to COPD exacerbation. 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 OT Reason for Consult: Discharge Planning This query below is only for informational purposes and is not editable. PT Evaluation and Treatment [CONS] Routine Please Evaluate and Treat. PT Reason for Consult: Ambulation This query below is only for informational purposes and is not editable. Hospital Course: Ms. Valdez is an 87-year-old woman who recently underwent kyphoplasty for management of back pain related to a recent compression fracture. For a few days prior to admission developed progressive increased shortness of breath with wheezing requiring use of oxygen continuously at home, usually she uses oxygen only at night. She does have a known history of COPD and does use nebulizers and inhalers at home. On initial evaluation there was no evidence of underlying pulmonary infection. She was treated with supplemental oxygen and nebulizer therapy and IV Solu-Medrol. On initial evaluation was also noted to have significant peripheral edema extending up into her thighs. She was given daily doses of IV Lasix during the hospitalization and did have good improvement of the edema, but not total resolution. Respiratory status improved during hospitalization but she continued to require continuous supplemental oxygen to maintain adequate oxygen saturations. Because of weakness she will be [facility] to [facility] for [facility] physical therapy and occupational therapy and will remain on continuous oxygen at the time of discharge she will be continued on daily furosemide 40 mg each day. Activity will be as tolerated and she will be on a 2 g sodium diet. Follow-up laboratory studies will be obtained on June 27. Follow-up at the [facility] will be as needed with her primary care provider Dr. Ruiz. - Patient Instructions Diet: Low Sodium Activity: As Tolerated Other/Special Instructions: Daily physical therapy and occupational therapy while at the [facility]. Oxygen 2 L/m via nasal cannula. Please obtain follow- up labs on June 27. - Discharge Plan Prescriptions/Med Rec: Furosemide [Lasix] 40 mg PO DAILY #30 tablet Prednisone [IJD: predniSONE] 40 mg PO WITHBREAKFAST #6 tablet Home Medications: Home Meds Albuterol Sulfate [Proair Hfa] 8.5 gm IH ASDIRECTED 08/31/13 [History] Aspirin [Roy Aspirin] 81 mg PO DAILY 08/31/13 [History] Budesonide [Pulmicort] 0.5 mg IH BID 08/31/13 [History] Omeprazole [Prilosec] 20 mg PO DAILY 08/31/13 [History] Simvastatin [Zocor] 20 mg PO BEDTIME 08/31/13 [History] Calcium Citrate/Vitamin D3 [Calcium Citrate with D Tablet] 1 tab PO BID [History] Magnesium Oxide 400 mg PO DAILY #100 tablet 11/24/14 [Rx] ALPRAZolam [Xanax] 0.25 mg PO BID PRN 04/19/15 [History] Albuterol [Proair HFA] 2 gm INH Q4HR PRN 10/22/15 [History] Acetaminophen 1 tab PO Q4H PRN 06/14/17 [History] Acetaminophen/HYDROcodone [[place] 325-5 MG] 1 tab PO Q6H PRN 06/14/17 [History] Albuterol [Proventil Neb Soln] 1 dose INH ASDIRECTED 06/14/17 [History] Docusate Sodium [Colace] 1 cap PO BID 06/14/17 [History] Ipratropium [Atrovent] 1 dose INH QID 06/14/17 [History] Lutein Extract/Zeaxanthin Ext [Lutein 15 MG Softgel] 1 tab PO DAILY 06/14/17 [ History] Polyethylene Glycol 3350 [MiraLAX] 17 gm PO BEDTIME 06/14/17 [History] *02 2 liter INH ASDIRECTED #0 06/21/17 [Rx] Furosemide [Lasix] 40 mg PO DAILY #30 tablet 06/21/17 [Rx] Prednisone [IJD: predniSONE] 40 mg PO WITHBREAKFAST #6 tablet 06/21/17 [Rx] Referrals: Dennis Ruiz MD [Primary Care Provider] - - Patient Data Vitals - Most Recent: Last Vital Signs Temp 98.1 F 06/21/17 10:57 Pulse 71 06/21/17 10:57 Resp 18 06/21/17 10:57 BP 167/72 H 06/21/17 11:27 Pulse Ox 95 06/21/17 12:53 Weight - Most Recent: 112 lb 11.2 oz I&O - Last 24 hours: Intake & Output 06/20/17 06/21/17 06/21/17 22:59 06:59 14:59 Intake Total 360 320 Output Total 550 Balance 360 -550 320 Lab Results - Last 24 hrs: Laboratory Results - last 24 hr 06/21/17 Range/Units 05:40 Sodium 135 L (140-148) mmol/L Potassium 4.5 (3.6-5.2) mmol/L Chloride 98 L (100-108) mmol/L Carbon Dioxide 33 H (21-32) mmol/L Anion Gap 8.5 (5.0-14.0) mmol/L BUN 38 H (7-18) mg/dL Creatinine 1.1 H (0.6-1.0) mg/dL Est Cr Clr Drug Dosing 25.88 mL/min Estimated GFR (MDRD) 47 L (>60) Glucose 91 (74-106) mg/dL Calcium 8.4 L (8.5-10.1) mg/dL Med Orders - Current: Current Medications Acetaminophen (Tylenol) 650 mg PO Q4H PRN PRN Reason: Pain (Mild 1-3)/fever Last Admin: 06/20/17 02:51 Dose: 650 mg Acetaminophen (Tylenol) 325 mg PO Q4H PRN PRN Reason: Pain Hydrocodone Bitart/Acetaminophen ([place] 325-5 Mg) 1 tab PO Q6H PRN PRN Reason: Pain Last Admin: 06/21/17 13:40 Dose: 1 tab Albuterol (Proventil Neb Soln) 2.5 mg NEB Q4H PRN PRN Reason: Shortness Of Breath/wheezing Last Admin: 06/19/17 04:15 Dose: 2.5 mg Albuterol/Ipratropium (Duoneb 3.0-0.5 Mg/3 Ml) 3 ml NEB QIDRT [facility] Last Admin: 06/21/17 10:50 Dose: 3 ml Alprazolam (Xanax) 0.25 mg PO BID PRN PRN Reason: Anxiety Last Admin: 06/21/17 08:30 Dose: 0.25 mg Aspirin (Halfprin) 81 mg PO DAILY [facility] Last Admin: 06/21/17 08:24 Dose: 81 mg Docusate Sodium (Colace) 100 mg PO BID PRN PRN Reason: Constipation Enoxaparin Sodium (Lovenox) 30 mg SUBCUT DAILY [facility] Magnesium Oxide (Magnesium Oxide) 400 mg PO DAILY [facility] Last Admin: 06/21/17 08:24 Dose: 400 mg Pantoprazole Sodium (Protonix) 40 mg PO ACBREAKFAST [facility] Last Admin: 06/21/17 08:24 Dose: 40 mg Polyethylene Glycol (Miralax) 17 gm PO BEDTIME [facility] Last Admin: 06/20/17 20:44 Dose: Not Given Potassium Chloride (Klor-Con M20) 20 meq PO BIDMEALS [facility] Last Admin: 06/21/17 08:24 Dose: 20 meq Prednisone (Prednisone) 40 mg PO WITHBREAKFAST [facility] Last Admin: 06/21/17 08:24 Dose: 40 mg Simvastatin (Zocor) 20 mg PO BEDTIME [facility] Last Admin: 06/20/17 20:39 Dose: 20 mg Sodium Chloride (Saline Flush) 10 ml FLUSH ASDIRECTED PRN PRN Reason: Keep Vein Open Triamterene/HCTZ (Dyazide 25-37.5 Mg) 1 each PO DAILY [facility] Zolpidem Tartrate (Ambien) 5 mg PO BEDTIME PRN PRN Reason: Insomnia Discontinued Medications Hydrocodone Bitart/Acetaminophen ([place] 325-5 Mg) 1 tab PO ONETIME ONE Stop: 06/18/17 19:45 Last Admin: 06/18/17 19:48 Dose: 1 tab Albuterol (Proventil Neb Soln) 2.5 mg NEB ONETIME ONE Stop: 06/18/17 19:58 Last Admin: 06/18/17 20:29 Dose: 2.5 mg Albuterol/Ipratropium (Duoneb 3.0-0.5 Mg/3 Ml) 3 ml NEB ONETIME ONE Stop: 06/18/17 19:06 Last Admin: 06/18/17 19:11 Dose: 3 ml Budesonide (Pulmicort) 0.5 mg NEB ONETIME ONE Stop: 06/18/17 19:58 Last Admin: 06/18/17 20:15 Dose: 0.5 mg Enoxaparin Sodium (Lovenox) 40 mg SUBCUT DAILY [facility] Stop: 06/21/17 09:01 Last Admin: 06/21/17 08:24 Dose: 40 mg Furosemide (Lasix) 20 mg IVPUSH NOW ONE Stop: 06/18/17 23:16 Last Admin: 06/18/17 23:58 Dose: 20 mg Furosemide (Lasix) 20 mg IVPUSH ONETIME ONE Stop: 06/19/17 11:46 Last Admin: 06/19/17 11:54 Dose: 20 mg Furosemide (Lasix) 20 mg IV ONETIME ONE Stop: 06/20/17 08:46 Last Admin: 06/20/17 08:49 Dose: 20 mg Furosemide (Lasix) 40 mg IVPUSH NOW ONE Stop: 06/21/17 10:01 Last Admin: 06/21/17 11:27 Dose: 40 mg Sodium Chloride (Normal Saline) 1,000 mls @ 100 mls/hr IV ASDIRECTED [facility] Last Admin: 06/18/17 19:16 Dose: 100 mls/hr Methylprednisolone Sodium Succinate (Solu-Medrol) 62.5 mg IVPUSH Q8H [facility] Last Admin: 06/20/17 07:27 Dose: 62.5 mg Pantoprazole Sodium (Protonix Iv) 40 mg IV ACBREAKFAST [facility] Pantoprazole Sodium (Protonix Iv) 40 mg IV Q24H [facility] Last Admin: 06/19/17 10:11 Dose: 40 mg Triamterene/HCTZ (Maxzide 25-37.5 Mg) 1 each PO DAILY [facility] Last Admin: 06/21/17 08:24 Dose: 1 each *Q Meaningful Use (DIS) - VTE *Q VTE Criteria *Q: - Stroke *Q Stroke Criteria *Q: - AMI *Q AMI Criteria *Q:
[2017-06-22] MEDS ORDERED: Hydrochlorothiazide/Triamterene 25-37.5 MG Cap PO SCH (09:00)
[2017-06-22] MEDS ORDERED: Enoxaparin 30 MG/0.3 ML Syringe SUBCUT SCH (09:00)
== END 2017-06-21 15:15 | DRG 191 ==
LOC: JP.ED 18:40 → JP.MS 22:41
PROVIDERS: ADMIT Hospitalist; ATTEND Hospitalist
DX: J44.1 Chronic obstructive pulmonary disease with (acute) exacerbation (principal); J96.11 Chronic respiratory failure with hypoxia; I25.10 Atherosclerotic heart disease of native coronary artery without angina pectoris; I10 Essential (primary) hypertension; I25.2 Old myocardial infarction; I87.2 Venous insufficiency (chronic) (peripheral); R60.9 Edema, unspecified; R06.02 Shortness of breath; Z99.81 Dependence on supplemental oxygen; F32.9 Major depressive disorder, single episode, unspecified; F41.9 Anxiety disorder, unspecified; Z95.5 Presence of coronary angioplasty implant and graft; M54.9 Dorsalgia, unspecified; G89.29 Other chronic pain; Z79.82 Long term (current) use of aspirin; Z88.5 Allergy status to narcotic agent; Z79.52 Long term (current) use of systemic steroids; Z87.311 Personal history of (healed) other pathological fracture
CPT/HCPCS: 36415; 71010 ×2; 80053; 83605; 84145; 84484; 85027; 93005; 94640 ×3; 96360; 96361; 99285; A9270; J7040; J7620; 80048; 81001; 83735; 85025; 93010; 94762; 97162-GP; 97165-GO; C9113; J1650; J1940; J2930; J7626

== ENCOUNTER 2017-07-02 21:50 | Emergency (ER) | payer MEDICARE, BC ==
--- NOTE | 2017-07-02 22:42 | EDM.PDOC ---
ED HPI GENERAL MEDICAL PROBLEM - General Chief Complaint: Abdominal Pain Stated Complaint: MEDICAL Time Seen by Provider: 07/02/17 22:21 Source of Information: Reports: Patient History Limitations: Reports: No Limitations - History of Present Illness INITIAL COMMENTS - FREE TEXT/NARRATIVE: 22.22 brought by her son and [id number] Chief complaint Upper abdominal pain History of present illness 87-year-old female with COPD, recently admitted for COPD exacerbation, fairly sudden onset epigastric pain with radiation to the back associated with nausea about half an hour after eating coconut pie about 4:30 PM. T[facility] some remedies [facility], no better. Refused her evening meal because of the pain. Nauseated but no vomiting or diarrhea No fever No history of similar pain previously. History of bowel obstruction secondary to incarcerated hernia necessitating open surgery with some small amount of bowel resection. No other abdominal surgery. History of coronary artery disease/stents Pain has improved to the point that she told her family that she didn't need to be here. However at home, he was oriented so that she has to be brought here. Right Upper Abdomen Pain Score (Numeric/FACES): 9 - Related Data Allergies Allergy/AdvReac Type Severity Reaction Status Date / Time codeine AdvReac Nausea and Verified 07/02/17 22:01 Vomiting Home Meds: Home Meds Albuterol Sulfate [Proair Hfa] 8.5 gm IH ASDIRECTED 08/31/13 [History] Aspirin [Racine Aspirin] 81 mg PO DAILY 08/31/13 [History] Budesonide [Pulmicort] 0.5 mg IH BID 08/31/13 [History] Omeprazole [Prilosec] 20 mg PO DAILY 08/31/13 [History] Simvastatin [Zocor] 20 mg PO BEDTIME 08/31/13 [History] Calcium Citrate/Vitamin D3 [Calcium Citrate with D Tablet] 1 tab PO BID [History] Magnesium Oxide 400 mg PO DAILY #100 tablet 11/24/14 [Rx] ALPRAZolam [Xanax] 0.25 mg PO BID PRN 04/19/15 [History] Albuterol [Proair HFA] 2 gm INH Q4HR PRN 10/22/15 [History] Acetaminophen 1 tab PO Q4H PRN 06/14/17 [History] Acetaminophen/HYDROcodone [[place] 325-5 MG] 1 tab PO Q6H PRN 06/14/17 [History] Albuterol [Proventil Neb Soln] 1 dose INH ASDIRECTED 06/14/17 [History] Docusate Sodium [Colace] 1 cap PO BID 06/14/17 [History] Ipratropium [Atrovent] 1 dose INH QID 06/14/17 [History] Lutein Extract/Zeaxanthin Ext [Lutein 15 MG Softgel] 1 tab PO DAILY 06/14/17 [ History] Polyethylene Glycol 3350 [MiraLAX] 17 gm PO BEDTIME 06/14/17 [History] *02 2 liter INH ASDIRECTED #0 06/21/17 [Rx] Furosemide [Lasix] 40 mg PO DAILY #30 tablet 06/21/17 [Rx] Cyclobenzaprine [Flexeril] 10 mg PO BEDTIME 07/02/17 [History] Lisinopril [Lisinopril] 5 mg PO DAILY 07/02/17 [History] Past Medical History HEENT History: Reports: Cataract, Impaired Vision Cardiovascular History: Reports: Arrhythmia, CAD, High Cholesterol, Hypertension , ID, Stents Respiratory History: Reports: COPD Gastrointestinal History: Reports: Colon Polyp, Other (See Below) Other Gastrointestinal History: bowel obstruction and stranguled hernia [employer] History: Reports: 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 History: Reports: Fracture, Other (See Below) Other 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 History: compression fractures Psychiatric History: Reports: Anxiety, Depression - Infectious Disease History Infectious Disease History: Reports: Chicken Pox, Measles, Mumps - Past Surgical History HEENT Surgical History: Reports: Cataract Surgery Cardiovascular Surgical History: Reports: Coronary Artery Stent GI Surgical History: Reports: Colon, Colonoscopy, EGD, Hernia, Abdominal Female Surgical History: Reports: Hysterectomy Other Neurological Surgeries/Procedures: back surgery a week ago Cement to the cracks in spine Social & Family History - Tobacco Use Smoking Status *Q: Never Smoker Second Hand Smoke Exposure: No - Caffeine Use Caffeine Use: Reports: Coffee, Tea - Recreational Drug Use Recreational Drug Use: No - Living Situation & Occupation Living situation: Reports: Occupation: Retired (lives alone about one block from Son Isra and Daughter in law Candida. of 65 years of old age.) ED ROS GENERAL - Review of Systems Review Of Systems: See Below Constitutional: Reports: Diaphoresis. Denies: Fever, Chills HEENT: Reports: No Symptoms Respiratory: Reports: No Symptoms Cardiovascular: Reports: No Symptoms GI/Abdominal: Reports: Abdominal Pain, Decreased Appetite, Nausea. Denies: Constipation, Diarrhea, Melena, Vomiting : Reports: No Symptoms 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: Reports: No Symptoms Skin: Reports: No Symptoms Neurological: Reports: No Symptoms Psychiatric: Reports: No Symptoms ED EXAM, GI/ABD - Physical Exam Exam: See Below Exam Limited By: No Limitations General Appearance: Alert, No Apparent Distress, Other (elevated systolic blood pressure otherwise vital signs normal, no difficulty speaking or breathing) Eyes: Bilateral: Normal Appearance Ears: Normal External Exam Nose: Normal Inspection Throat/Mouth: Normal Inspection, Normal Oropharynx, Normal Voice Head: Atraumatic Neck: Normal Inspection Respiratory/Chest: No Respiratory Distress, No Accessory Muscle Use, Rales ( occasional). No: Chest Non-Tender Cardiovascular: Normal Peripheral Pulses, Regular Rate, Rhythm GI/Abdominal Exam: Normal Bowel Sounds, Soft, No Distention, No Mass, Tender ( diffuse, mild) Back Exam: Normal Inspection, Other (dressing from recent surgery/kyphoplasty) Extremities: Normal Inspection Neurological: Alert, Oriented, No Motor/Sensory Deficits Skin Exam: Dry, No Rash Course - Vital Signs Last Recorded V/S: Last Vital Signs Temp 35.6 C 07/02/17 22:06 Pulse 72 07/02/17 23:45 Resp 18 07/02/17 23:45 BP 164/72 H 07/02/17 23:45 Pulse Ox 96 07/02/17 23:45 - Orders/Labs/Meds Orders: Active Orders 24 hr Category Date Time Status EKG Documentation Completion [RC] ASDIRECTED Care 07/02/17 22:37 Active EKG 12 Lead [EK] Routine Ther 07/02/17 22:36 Ordered Labs: Laboratory Tests 07/02/17 07/02/17 Range/Units 22:36 22:57 WBC 19.1 H (4.5-11.0) K/uL RBC 3.65 (3.30-5.50) M/uL Hgb 11.1 L (12.0-15.0) g/dL Hct 34.8 L (36.0-48.0) % MCV 95 (80-98) fL MCH 30 (27-31) pg MCHC 32 (32-36) % Plt Count 311 (150-400) K/uL Sodium 134 L (140-148) mmol/L Potassium 3.4 L (3.6-5.2) mmol/L Chloride 95 L (100-108) mmol/L Carbon Dioxide 34 H (21-32) mmol/L Anion Gap 8.4 (5.0-14.0) mmol/L BUN 28 H (7-18) mg/dL Creatinine 1.3 H (0.6-1.0) mg/dL Est Cr Clr Drug Dosing 21.90 mL/min Estimated GFR (MDRD) 39 L (>60) Glucose 123 H (74-106) mg/dL Calcium 9.0 (8.5-10.1) mg/dL Total Bilirubin 0.5 (0.2-1.0) mg/dL AST 21 (15-37) U/L ALT 19 (12-78) U/L Alkaline Phosphatase 169 H (46-116) U/L Troponin I 0.038 (0.000-0.056) ng/mL Total Protein 6.2 L (6.4-8.2) g/dL Albumin 2.8 L (3.4-5.0) g/dL Globulin 3.4 (2.3-3.5) g/dL Albumin/Globulin Ratio 0.8 L (1.2-2.2) Lipase 59 L (73-393) U/L - Re-Assessments/Exams Free Text/Narrative Re-Assessment/Exam: 07/02/17 22:43 87-year-old female with sudden onset epigastric pain with radiation to the back and associated with nausea but no vomiting, no fever. Discomfort has improved significantly Differentialdiagnosis includes peptic ulcer, dyspepsia, biliary colic, bowel obstruction/incomplete among others. Patient declined analgesics at this time Labs ordered 07/02/17 23:51 Pain and discomfort resolved Elevated white count 19.1, mild depressionOf electrolytes and mild elevation of creatinine with a decreased GFR compared to previous. Normal hepatic profile lipase. Elevated glucose 123 EKG shows sinus rhythm left ventricular hypertrophy borderline QT interval, overall rate 65, no acute changes by my interpretation Since her pain is improved no further investigations now, follow-up with primary care, may need an ultrasound or repeat of lab tests Return to emergency if worsening fever or jaundice or other new symptoms 07/03/17 01:14 Departure - Departure Time of Disposition: 23:47 Disposition: DC/Tfer to Inpt Rehab Fac 62 Condition: Good Clinical Impression: Renal insufficiency Abdominal pain Qualifiers: Abdominal location: epigastric Qualified Code(s): R10.13 - Epigastric pain - Discharge Information Instructions: Abdominal Pain, Adult, [id number] Referrals: Dennis Ruiz MD [Primary Care Provider] - Forms: ED Department Discharge Additional Instructions: you were seen in emergency night because of abdominal pain that has improved. Possible causes of the abdominal pain include gallbladder problems such as gallstones, peptic ulcer, inflamed stomach and inflamed intestines. Further testing might include ultrasound of your abdomen to look for gallstones. Since her pain has improved, no further treatment or investigations tonight You have elevated white cell count because of the inflammation and you have some decrease in your kidney function called renal insufficiency. These tests need to be rechecked within the next week. Please make an appointment with your regular provider for a follow-up appointment Return to emergency if your pain is worsening, you develop fever, vomiting or any more severe abdominal pain. - My Orders Last 24 Hours: My Active Orders 07/02/17 22:36 EKG 12 Lead [EK] Routine 07/02/17 22:37 EKG Documentation Completion [RC] ASDIRECTED - Assessment/Plan Last 24 Hours: My Active Orders 07/02/17 22:36 EKG 12 Lead [EK] Routine 07/02/17 22:37 EKG Documentation Completion [RC] ASDIRECTED
[2017-07-03 00:22] VITALS: BP 164/72
== END 2017-07-03 00:10 ==
LOC: JP.ED 21:50
DX: N28.9 Disorder of kidney and ureter, unspecified (principal); R10.13 Epigastric pain; I10 Essential (primary) hypertension; I25.10 Atherosclerotic heart disease of native coronary artery without angina pectoris; E78.00 Pure hypercholesterolemia, unspecified; J44.9 Chronic obstructive pulmonary disease, unspecified; F32.9 Major depressive disorder, single episode, unspecified; Z79.82 Long term (current) use of aspirin; Z79.899 Other long term (current) drug therapy; Z88.5 Allergy status to narcotic agent
CPT/HCPCS: 36415; 80053; 83690; 84484; 85027; 93005; 93010; 99284; 99285-25

== ENCOUNTER 2017-07-25 09:07 | Inpatient (IN) | payer MEDICARE, BC ==
[2017-07-25] MEDS ORDERED: Lactated Ringers 1,000 ML IV SCH (09:30)
[2017-07-25] MEDS ORDERED: Piperacillin/Tazobactam 4.5 GM in Sodium Chloride 0.9% 100 ML IV SCH (09:30)
[2017-07-25] MEDS ORDERED: Albuterol/Ipratropium 3.0-0.5 MG/3 ML Neb Soln NEB ONE (09:32)
--- NOTE | 2017-07-25 09:37 | EDM.PDOC ---
ED HPI GENERAL MEDICAL PROBLEM - General Chief Complaint: Respiratory Problem Stated Complaint: MEDICAL [place] Time Seen by Provider: 07/25/17 09:21 Source of Information: Reports: Patient, Family, Old Records, RN Notes Reviewed History Limitations: Reports: Respiratory Distress - History of Present Illness INITIAL COMMENTS - FREE TEXT/NARRATIVE: 87-year-old female presents emergency department today via EMS services for increasing shortness of breath and hypoxia, she is currently a [facility] was recently admitted to the hospital about a month ago for COPD exacerbation placed in a [facility] for [facility]. Over the last 3 days has progressively gotten more short of breath increased oxygen demand normally wears oxygen at night but she is now wearing it all the time EMS found O2 sats ration 88% was given 1 DuoNeb in route which provided little relief on 16 July she had blood work done including influenza and CBC which were unremarkable as well as chest x-ray Generalized Pain Score (Numeric/FACES): 8 - Related Data Allergies Allergy/AdvReac Type Severity Reaction Status Date / Time codeine AdvReac Nausea and Verified 07/25/17 09:15 Vomiting Home Meds: Home Meds Aspirin [[place] Aspirin] 81 mg PO DAILY 08/31/13 [History] Budesonide [Pulmicort] 0.5 mg IH BID 08/31/13 [History] Omeprazole [Prilosec] 20 mg PO DAILY 08/31/13 [History] Simvastatin [Zocor] 20 mg PO BEDTIME 08/31/13 [History] Magnesium Oxide 400 mg PO DAILY #100 tablet 11/24/14 [Rx] ALPRAZolam [Xanax] 0.25 mg PO BID 04/19/15 [History] Albuterol [Proair HFA] 2 gm INH Q4HR PRN 10/22/15 [History] Acetaminophen 650 mg PO Q4H PRN 06/14/17 [History] Docusate Sodium [Colace] 1 cap PO BID PRN 06/14/17 [History] Ipratropium [Atrovent] 1 dose INH QID PRN 06/14/17 [History] Lutein Extract/Zeaxanthin Ext [Lutein 15 MG Softgel] 1 tab PO DAILY 06/14/17 [ History] Polyethylene Glycol 3350 [MiraLAX] 17 gm PO BEDTIME 06/14/17 [History] Furosemide [Lasix] 40 mg PO DAILY #30 tablet 06/21/17 [Rx] Cyclobenzaprine [Flexeril] 5 mg PO BEDTIME 07/02/17 [History] Lisinopril [Lisinopril] 5 mg PO DAILY 07/02/17 [History] ALPRAZolam [Xanax] 1 tab PO Q6H PRN 07/25/17 [History] Amino Acids/Protein Hydrolys [Pro-Stat Max Liquid] 30 ml PO DAILY 07/25/17 [ History] Arformoterol [Brovana] 1 puff INH BID 07/25/17 [History] Calcium Carbonate/Vitamin D3 [Calcium 600 + Vit D 200] 1 tab PO BID 07/25/17 [ History] Citalopram Hydrobromide [Celexa] 10 mg PO BEDTIME 07/25/17 [History] Ipratropium Alexander 1 vial INH BID 07/25/17 [History] guaiFENesin/Dextromethorphan [Mucinex Dm ER 600-30 mg Tablet] 1 tab PO BID PRN 07/25/17 [History] oxyCODONE 1 - 2 tab PO Q4H PRN 07/25/17 [History] Past Medical History HEENT History: Reports: Cataract, Impaired Vision Cardiovascular History: Reports: Arrhythmia, CAD, High Cholesterol, Hypertension , PR, Stents Respiratory History: Reports: COPD Gastrointestinal History: Reports: Colon Polyp, Other (See Below) Other Gastrointestinal History: bowel obstruction and stranguled hernia [employer] History: Reports: 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 History: Reports: Fracture, Other (See Below) Other 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 History: compression fractures Psychiatric History: Reports: Anxiety, Depression - Infectious Disease History Infectious Disease History: Reports: Chicken Pox, Measles, Mumps - Past Surgical History HEENT Surgical History: Reports: Cataract Surgery Cardiovascular Surgical History: Reports: Coronary Artery Stent GI Surgical History: Reports: Colon, Colonoscopy, EGD, Hernia, Abdominal Female Surgical History: Reports: Hysterectomy Other Neurological Surgeries/Procedures: back surgery Cement to the cracks in spine Social & Family History - Tobacco Use Smoking Status *Q: Unknown Ever Smoked Second Hand Smoke Exposure: No - Caffeine Use Caffeine Use: Reports: Coffee, Tea - Recreational Drug Use Recreational Drug Use: No - Living Situation & Occupation Living situation: Reports: Occupation: Retired (lives alone about one block from Son Isra and Daughter in law Candida. of 65 years of old age.) ED ROS GENERAL - Review of Systems Review Of Systems: See Below Constitutional: Reports: Chills, Weakness, Fatigue HEENT: Reports: No Symptoms Respiratory: Reports: Shortness of Breath, Wheezing, Cough, Sputum (Yellow) Cardiovascular: Reports: Chest Pain (From coughing), Dyspnea on Exertion GI/Abdominal: Reports: No Symptoms : Reports: No Symptoms 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: Reports: No Symptoms Skin: Reports: No Symptoms Neurological: Reports: No Symptoms ED EXAM, GENERAL - Physical Exam Exam: See Below Free Text/Narrative:: General: Female elderly, ill-appearing, alert and oriented 2, confused on days HEENT: head is atraumatic normocephalic, eyes pupils equal round reactive to light, sclera clear no conjunctivitis appreciated. Ears tympanic membranes clear and green landmarks and light reflex are present bilaterally canals are clear. Nose no septal deviation, nares are clear, no blood present. Mouth mucosa is dry and pink no erythema or exudate noted in soft palate, tongue is midline uvula is midline, dentition is intact. Neck: Supple no thyromegaly no tracheal deviation. Nodes: Cervical nodes subclavicular nodes nontender no palpable lymphadenopathy noted. Lungs: Decreased breath sounds with an expiratory wheeze as well as crackles mid to lower lung [place] bilaterally CV: Regular rate and rhythm S1 and S2 appreciated no murmurs rubs or gallops noted. Abdomen: Soft, nontender, no palpable masses or organomegaly appreciated, no distention no guarding bowel sounds are present . Neuro: Cranial nerves II through XII grossly intact Skin: Warm and dry, intact Extremities: No lower extremity edema appreciated, . Course - Vital Signs Last Recorded V/S: Last Vital Signs Temp 96.3 F 07/25/17 10:19 Pulse 78 07/25/17 10:42 Resp 26 H 07/25/17 10:42 BP 129/65 07/25/17 10:42 Pulse Ox 92 L 07/25/17 10:42 - Orders/Labs/Meds Orders: Active Orders 24 hr Category Date Time Status RT Aerosol Therapy [RC] ASDIRECTED Care 07/25/17 09:32 Active Vital Signs [RC] Q1H Care 07/25/17 09:28 Active Chest 1V Frontal [CR] Urgent Exams 07/25/17 09:30 Taken ABG [BLOOD GAS ARTERIAL] [BG] Stat Lab 07/25/17 10:32 Ordered CULTURE BLOOD [BC] Urgent Lab 07/25/17 09:40 Received CULTURE BLOOD [BC] Urgent Lab 07/25/17 09:40 Received Lactated Ringers [Ringers, Lactated] 1,000 ml Med 07/25/17 09:30 Active IV ASDIRECTED Piperacillin/Tazobactam/Dext [Zosyn in Dextrose Iso- Med 07/25/17 10:00 Active Osmotic] 4.5 gm Premix Bag 1 bag IV Q6H Potassium Chloride 20 meq Med 07/25/17 11:00 Active Lidocaine 1% [Xylocaine 1%] 2 ml Sodium Chloride 0.9% [Normal Saline] 100 ml IV Q2H Blood Culture x2 Reflex Set [OM.PC] Urgent Oth 07/25/17 09:28 Ordered Medication Orders Lactated Ringer's (Ringers, Lactated) 1,000 mls @ 999 mls/hr IV ASDIRECTED LEISA Last Admin: 07/25/17 10:10 Dose: 999 mls/hr Piperacillin/Tazobactam/ (Dextrose 4.5 gm/ Premix) 100 mls @ 200 mls/hr IV Q6H [facility] Last Admin: 07/25/17 10:10 Dose: 200 mls/hr Potassium Chloride 20 meq/Lidocaine HCl 2 ml/ Sodium Chloride 112 mls @ 56 mls/ hr IV Q2H [facility] Stop: 07/25/17 14:59 Labs: Laboratory Tests 07/25/17 07/25/17 07/25/17 Range/Units 09:40 09:40 09:40 WBC 15.2 H (4.5-11.0) K/uL RBC 4.05 (3.30-5.50) M/uL Hgb 12.4 (12.0-15.0) g/dL Hct 37.1 (36.0-48.0) % MCV 92 (80-98) fL MCH 31 (27-31) pg MCHC 33 (32-36) % Plt Count 384 (150-400) K/uL Neut % (Auto) 70 H (36-66) % Lymph % (Auto) 24 (24-44) % [place] % (Auto) 6 (2-6) % Eos % (Auto) 0 L (2-4) % Baso % (Auto) 0 (0-1) % Sodium 132 L (140-148) mmol/L Potassium 2.5 L* (3.6-5.2) mmol/L Chloride 86 L (100-108) mmol/L Carbon Dioxide 37 H (21-32) mmol/L Anion Gap 11.5 (5.0-14.0) mmol/L BUN 7 D (7-18) mg/dL Creatinine 0.8 (0.6-1.0) mg/dL Est Cr Clr Drug Dosing 35.59 mL/min Estimated GFR (MDRD) > 60 (>60) Glucose 117 H (74-106) mg/dL Lactic Acid 1.3 (0.4-2.0) mmol/L Calcium 8.5 (8.5-10.1) mg/dL Total Bilirubin 0.7 (0.2-1.0) mg/dL AST 23 (15-37) U/L ALT 17 (12-78) U/L Alkaline Phosphatase 139 H (46-116) U/L Troponin I (0.000-0.056) ng/mL C-Reactive Protein 11.75 H (0.0-0.3) mg/dL NT-Pro-B Natriuret Pep (5-450) pg/mL Total Protein 6.4 (6.4-8.2) g/dL Albumin 2.7 L (3.4-5.0) g/dL Globulin 3.7 H (2.3-3.5) g/dL Albumin/Globulin Ratio 0.7 L (1.2-2.2) Urine Color Urine Appearance Urine pH (4.5-8.0) Ur Specific Universal (1.008-1.030) Urine Protein (NEGATIVE) mg/dL Urine Glucose (UA) (NEGATIVE) mg/dL Urine Ketones (NEGATIVE) mg/dL Urine Occult Blood (NEGATIVE) Urine Nitrite (NEGATIVE) Urine Bilirubin (NEGATIVE) Urine Urobilinogen (NORMAL) mg/dL Ur Leukocyte Esterase (NEGATIVE) Urine RBC (0-5) Urine WBC (0-5) Ur Epithelial Cells Amorphous Sediment Urine Bacteria Urine Mucus 07/25/17 07/25/17 07/25/17 Range/Units 09:40 09:40 10:11 WBC (4.5-11.0) K/uL RBC (3.30-5.50) M/uL Hgb (12.0-15.0) g/dL Hct (36.0-48.0) % MCV (80-98) fL MCH (27-31) pg MCHC (32-36) % Plt Count (150-400) K/uL Neut % (Auto) (36-66) % Lymph % (Auto) (24-44) % [place] % (Auto) (2-6) % Eos % (Auto) (2-4) % Baso % (Auto) (0-1) % Sodium (140-148) mmol/L Potassium (3.6-5.2) mmol/L Chloride (100-108) mmol/L Carbon Dioxide (21-32) mmol/L Anion Gap (5.0-14.0) mmol/L BUN (7-18) mg/dL Creatinine (0.6-1.0) mg/dL Est Cr Clr Drug Dosing mL/min Estimated GFR (MDRD) (>60) Glucose (74-106) mg/dL Lactic Acid (0.4-2.0) mmol/L Calcium (8.5-10.1) mg/dL Total Bilirubin (0.2-1.0) mg/dL AST (15-37) U/L ALT (12-78) U/L Alkaline Phosphatase (46-116) U/L Troponin I 0.020 (0.000-0.056) ng/mL C-Reactive Protein (0.0-0.3) mg/dL NT-Pro-B Natriuret Pep 2571 H (5-450) pg/mL Total Protein (6.4-8.2) g/dL Albumin (3.4-5.0) g/dL Globulin (2.3-3.5) g/dL Albumin/Globulin Ratio (1.2-2.2) Urine Color Yellow Urine Appearance Clear Urine pH 8.0 (4.5-8.0) Ur Specific Universal 1.010 (1.008-1.030) Urine Protein Negative (NEGATIVE) mg/dL Urine Glucose (UA) Normal (NEGATIVE) mg/dL Urine Ketones Negative (NEGATIVE) mg/dL Urine Occult Blood Negative (NEGATIVE) Urine Nitrite Negative (NEGATIVE) Urine Bilirubin Negative (NEGATIVE) Urine Urobilinogen Normal (NORMAL) mg/dL Ur Leukocyte Esterase Negative (NEGATIVE) Urine RBC Not seen (0-5) Urine WBC Not seen (0-5) Ur Epithelial Cells Not seen Amorphous Sediment Rare Urine Bacteria Not seen Urine Mucus Not seen Meds: Medications Generic Name Dose Route Start Last Admin Trade Name Freq PRN Reason Stop Dose Admin Lactated Ringer's 1,000 mls @ 999 mls/hr 07/25/17 09:30 07/25/17 10:10 Ringers, Lactated IV 999 mls/hr ASDIRECTED LEISA Administration Piperacillin/Tazobactam/ 100 mls @ 200 mls/hr 07/25/17 10:00 07/25/17 10:10 Dextrose 4.5 gm/ Premix IV 200 mls/hr Q6H LEISA Administration Potassium Chloride 20 meq/ 112 mls @ 56 mls/hr 07/25/17 11:00 Lidocaine HCl 2 ml/ Sodium IV 07/25/17 14:59 Chloride Q2H LEISA Discontinued Medications Generic Name Dose Route Start Last Admin Trade Name Freq PRN Reason Stop Dose Admin Albuterol/Ipratropium 3 ml 07/25/17 09:32 07/25/17 09:47 Duoneb 3.0-0.5 Mg/3 Ml NEB 07/25/17 09:33 3 ml ONETIME ONE Administration Methylprednisolone Sodium Succinate 125 mg 07/25/17 10:44 Solu-Medrol IVPUSH 07/25/17 10:45 ONETIME ONE Ondansetron HCl 4 mg 07/25/17 10:55 Zofran IVPUSH 07/25/17 10:56 ONETIME ONE Potassium Chloride 40 meq 07/25/17 10:28 07/25/17 10:50 Klor-Con M20 PO 07/25/17 10:29 40 meq ONETIME ONE Administration Departure - Departure Time of Disposition: 11:09 Disposition: Admitted As Inpatient 66 Condition: Poor Clinical Impression: Chronic respiratory failure with hypoxia, COPD exacerbation Sepsis Qualifiers: Sepsis type: sepsis due to unspecified organism Qualified Code(s): A41.9 - Sepsis, unspecified organism - Discharge Information Referrals: Dennis Ruiz MD [Primary Care Provider] - Forms: ED Department Discharge - My Orders Last 24 Hours: My Active Orders 07/25/17 09:28 Vital Signs [RC] Q1H Blood Culture x2 Reflex Set [OM.PC] Urgent 07/25/17 09:30 Chest 1V Frontal [CR] Urgent Lactated Ringers [Ringers, Lactated] 1,000 ml IV ASDIRECTED 07/25/17 09:32 RT Aerosol Therapy [RC] ASDIRECTED 07/25/17 09:40 CULTURE BLOOD [BC] Urgent CULTURE BLOOD [BC] Urgent 07/25/17 10:00 Piperacillin/Tazobactam/Dext [Zosyn in Dextrose Iso-Osmotic] 4.5 gm Premix Bag 1 bag IV Q6H 07/25/17 10:32 ABG [BLOOD GAS ARTERIAL] [BG] Stat 07/25/17 11:00 Potassium Chloride 20 meq Lidocaine 1% [Xylocaine 1%] 2 ml Sodium Chloride 0.9 % [Normal Saline] 100 ml IV Q2H - Assessment/Plan Last 24 Hours: My Active Orders 07/25/17 09:28 Vital Signs [RC] Q1H Blood Culture x2 Reflex Set [OM.PC] Urgent 07/25/17 09:30 Chest 1V Frontal [CR] Urgent Lactated Ringers [Ringers, Lactated] 1,000 ml IV ASDIRECTED 07/25/17 09:32 RT Aerosol Therapy [RC] ASDIRECTED 07/25/17 09:40 CULTURE BLOOD [BC] Urgent CULTURE BLOOD [BC] Urgent 07/25/17 10:00 Piperacillin/Tazobactam/Dext [Zosyn in Dextrose Iso-Osmotic] 4.5 gm Premix Bag 1 bag IV Q6H 07/25/17 10:32 ABG [BLOOD GAS ARTERIAL] [BG] Stat 07/25/17 11:00 Potassium Chloride 20 meq Lidocaine 1% [Xylocaine 1%] 2 ml Sodium Chloride 0.9 % [Normal Saline] 100 ml IV Q2H Plan: Assessment Acuity = acute Site and laterality = chronic obstructive pulmonary disease exacerbation concern for development of early sepsis Etiology = suspicious for bacterial cause Manifestations = tachypnea, hypoxic Location of injury = Home Lab values = WBC elevated at 15.2 consistent with a leukocytosis , sodium low at 132 consistent hyponatremia potassium low at 2.5 consistent hypokalemia troponin was negative CRP elevated 11.76 lactic acid normal at 1.3 BNP elevated at 2571 consistent fluid overload albumin low at 2.7 consistent hypoalbuminemia ABG is pending, blood cultures pending chest x-ray I did review films myself I cannot appreciate any acute process, the official read from radiology is pending Plan Called discussed case with hospitalist counter control operator he agreed to come and evaluate the patient in the emergency department for admission This note was dictated using [employer] voice recognition software please call with any questions on syntax or noe.
[2017-07-25] MEDS ORDERED: Piperacillin/Tazobactam/Dext 4.5 GM in Premix Bag 1 BAG IV SCH (10:00)
[2017-07-25] MEDS ORDERED: Potassium Chloride 40 MEQ in Premix Bag 1 BAG IV ONE (10:28)
[2017-07-25] MEDS ORDERED: Potassium Chloride 20 MEQ Tab.ER PO ONE (10:28)
[2017-07-25] MEDS ORDERED: methylPREDNISolone Sodium Succinate 125 MG/2 ML SDV IVPUSH ONE (10:44)
[2017-07-25] MEDS ORDERED: Ondansetron 4 MG/2 ML SDV IVPUSH ONE (10:55)
[2017-07-25] MEDS: Potassium Chloride 20 MEQ, Lidocaine 1% 2 ML in Sodium Chloride 0.9% 100 ML IV SCH ×4 (11:09→20:39)
--- NOTE | 2017-07-25 11:16 | CR ---
Chest 1V Frontal INDICATION: sob COMPARISON: 06/18/2017 FINDINGS: AP portable chest. No acute interval change. Cardiomegaly. Lungs hyperinflated. No definite new infiltrates. Bibasilar s carring. No obvious pleural effusions. Old left rib fractures.
[2017-07-25] MEDS ORDERED: Levofloxacin/Dextrose 5%-Water 750 MG in Premix Bag 1 BAG IV ONE (11:45)
--- NOTE | 2017-07-25 12:05 | PCM.HP ---
H&P History of Present Illness - General Date of Service: 07/25/17 Admit Problem/Dx: Admission Diagnosis/Problem Admission Diagnosis/Problem Acute bronchitis Source of Information: Patient, Family History Limitations: Reports: No Limitations - History of Present Illness Initial Comments - Free Text/Narative: Malgorzata presents to the emergency room today with ongoing cough, shortness of breath and progressive supplemental oxygen requirements. She is lethargic but able to answer most of the questions. I did get a fair amount of supplemental information from her son. She has been ill for more than a week. She was initially clinically diagnosed (influenza titer was reportedly negative)with influenza after a couple of days of fever and cough and started on Tamiflu. Despite this her respiratory status slowly declined. She has had increasing episodes of coughing with more and more sputum production. She has become progressively short of breath. Previously she had only required supplemental oxygen at night but now requires it when he 4 hours a day and despite this has had progressive shortness of breath. She has not had fevers for several days. She has intermittent but not regular diarrhea. No complaints of chest pain or abdominal pain. Appetite has been poor and she's had very little to eat or drink for the past few days. Workup in the emergency room revealed evidence for acute on chronic hypoxic respiratory failure with probable bronchitis and COPD exacerbation. She will be admitted for further management. Generalized Pain Score (Numeric/FACES): 8 Headache Pain Score (Numeric/FACES): 4 - Related Data Allergies/Adverse Reactions: Allergies Allergy/AdvReac Type Severity Reaction Status Date / Time codeine AdvReac Nausea and Verified 07/25/17 09:15 Vomiting Home Medications: Home Meds Aspirin [[place] Aspirin] 81 mg PO DAILY 08/31/13 [History] Budesonide [Pulmicort] 0.5 mg IH BID 08/31/13 [History] Omeprazole [Prilosec] 20 mg PO DAILY 08/31/13 [History] Simvastatin [Zocor] 20 mg PO BEDTIME 08/31/13 [History] Magnesium Oxide 400 mg PO DAILY #100 tablet 11/24/14 [Rx] ALPRAZolam [Xanax] 0.25 mg PO BID 04/19/15 [History] Albuterol [Proair HFA] 2 gm INH Q4HR PRN 10/22/15 [History] Acetaminophen 650 mg PO Q4H PRN 06/14/17 [History] Docusate Sodium [Colace] 1 cap PO BID PRN 06/14/17 [History] Ipratropium [Atrovent] 1 dose INH QID PRN 06/14/17 [History] Lutein Extract/Zeaxanthin Ext [Lutein 15 MG Softgel] 1 tab PO DAILY 06/14/17 [ History] Polyethylene Glycol 3350 [MiraLAX] 17 gm PO BEDTIME 06/14/17 [History] Furosemide [Lasix] 40 mg PO DAILY #30 tablet 06/21/17 [Rx] Cyclobenzaprine [Flexeril] 5 mg PO BEDTIME 07/02/17 [History] Lisinopril [Lisinopril] 5 mg PO DAILY 07/02/17 [History] ALPRAZolam [Xanax] 1 tab PO Q6H PRN 07/25/17 [History] Amino Acids/Protein Hydrolys [Pro-Stat Max Liquid] 30 ml PO DAILY 07/25/17 [ History] Arformoterol [Brovana] 1 puff INH BID 07/25/17 [History] Calcium Carbonate/Vitamin D3 [Calcium 600 + Vit D 200] 1 tab PO BID 07/25/17 [ History] Citalopram Hydrobromide [Celexa] 10 mg PO BEDTIME 07/25/17 [History] Ipratropium [place] 1 vial INH BID 07/25/17 [History] guaiFENesin/Dextromethorphan [Mucinex Dm ER 600-30 mg Tablet] 1 tab PO BID PRN 07/25/17 [History] oxyCODONE 1 - 2 tab PO Q4H PRN 07/25/17 [History] Past Medical History HEENT History: Reports: Cataract, Impaired Vision Cardiovascular History: Reports: Arrhythmia, CAD, High Cholesterol, Hypertension , [place], Stents Respiratory History: Reports: COPD Gastrointestinal History: Reports: Colon Polyp, Other (See Below) Other Gastrointestinal History: bowel obstruction and stranguled hernia [employer] History: Reports: 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 History: Reports: Fracture, Other (See Below) Other 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 History: compression fractures Psychiatric History: Reports: Anxiety, Depression - Infectious Disease History Infectious Disease History: Reports: Chicken Pox, Measles, Mumps - Past Surgical History HEENT Surgical History: Reports: Cataract Surgery Cardiovascular Surgical History: Reports: Coronary Artery Stent GI Surgical History: Reports: Colon, Colonoscopy, EGD, Hernia, Abdominal Female Surgical History: Reports: Hysterectomy Other Neurological Surgeries/Procedures: back surgery Cement to the cracks in spine Social & Family History - Family History Cardiac: Denies: CAD - Tobacco Use Smoking Status *Q: Unknown Ever Smoked Second Hand Smoke Exposure: No - Caffeine Use Caffeine Use: Reports: Coffee, Tea - Alcohol Use Alcohol Use History: No - Recreational Drug Use Recreational Drug Use: No - Living Situation & Occupation Living situation: Reports: Occupation: Retired (lives alone about one block from Son Isra and Daughter in law Candida. of 65 years of old age.) H&P Review of Systems - Review of Systems: Review Of Systems: See Below Free Text/Narrative: A complete 12 point review of systems was obtained. Pertinent positives and negatives are noted in the history of present illness. All other systems were reviewed and were negative except as noted. Exam - Exam Exam: See Below - Vital Signs Vital Signs: Last Vital Signs Temp 35.7 C 07/25/17 10:19 Pulse 78 07/25/17 10:42 Resp 26 H 07/25/17 10:42 BP 129/65 07/25/17 10:42 Pulse Ox 92 L 07/25/17 10:42 Weight: 47.627 kg - Exam Quality Assessment: Supplemental Oxygen General: Alert, Oriented, Cooperative, Mild Distress HEENT: Conjunctiva Clear. No: Mucosa Moist & Ward (dry), Scleral Icterus Neck: Trachea Midline. No: Lymphadenopathy Lungs: Normal Respiratory Effort, Wheezing (diffuse exp wheezing) Cardiovascular: Regular Rate, Regular Rhythm. No: Systolic Murmur GI/Abdominal Exam: Normal Bowel Sounds, Soft, No Distention Extremities: Pedal Edema (mild ankle edema bilaterally ). No: Increased Warmth Skin: Warm, Dry, Other (chronic venous stasis) Neuro Extensive - Mental Status: Alert, Oriented x3, Slow Response to Commands Neuro Extensive - Motor, Sensory, Reflexes: CN II-XII Intact. No: Dysarthria, Abnormal Motor, Tremor Psychiatric: Alert, Normal Affect - Patient Data Lab Results Last 24 hrs: Laboratory Results - last 24 hr 07/25/17 07/25/17 07/25/17 Range/Units 09:40 09:40 09:40 WBC 15.2 H (4.5-11.0) K/uL RBC 4.05 (3.30-5.50) M/uL Hgb 12.4 (12.0-15.0) g/dL Hct 37.1 (36.0-48.0) % MCV 92 (80-98) fL MCH 31 (27-31) pg MCHC 33 (32-36) % Plt Count 384 (150-400) K/uL Neut % (Auto) 70 H (36-66) % Lymph % (Auto) 24 (24-44) % Dolores % (Auto) 6 (2-6) % Eos % (Auto) 0 L (2-4) % Baso % (Auto) 0 (0-1) % Puncture Site ABG pH (7.350-7.450) ABG pCO2 (35.0-42.0) mmHg ABG pO2 (75.0-100.0) mmHg ABG HCO3 (22.0-26.0) mmol/L ABG Total CO2 (21.0-25.0) mmol/L ABG O2 Saturation (95.0-98.0) % ABG O2 Content (15.0-23.0) %vol ABG Base Excess mm/L ABG Hemoglobin (12.0-16.0) g/dL ABG Oxyhemoglobin % ABG Carboxyhemoglobin (0.0-1.6) % ABG Methemoglobin % Edgar Test O2 Delivery Device Oxygen Flow Rate L Sodium 132 L (140-148) mmol/L Potassium 2.5 L* (3.6-5.2) mmol/L Chloride 86 L (100-108) mmol/L Carbon Dioxide 37 H (21-32) mmol/L Anion Gap 11.5 (5.0-14.0) mmol/L BUN 7 D (7-18) mg/dL Creatinine 0.8 (0.6-1.0) mg/dL Est Cr Clr Drug Dosing 35.59 mL/min Estimated GFR (MDRD) > 60 (>60) Glucose 117 H (74-106) mg/dL Lactic Acid 1.3 (0.4-2.0) mmol/L Calcium 8.5 (8.5-10.1) mg/dL Total Bilirubin 0.7 (0.2-1.0) mg/dL AST 23 (15-37) U/L ALT 17 (12-78) U/L Alkaline Phosphatase 139 H (46-116) U/L Troponin I (0.000-0.056) ng/mL C-Reactive Protein 11.75 H (0.0-0.3) mg/dL NT-Pro-B Natriuret Pep (5-450) pg/mL Total Protein 6.4 (6.4-8.2) g/dL Albumin 2.7 L (3.4-5.0) g/dL Globulin 3.7 H (2.3-3.5) g/dL Albumin/Globulin Ratio 0.7 L (1.2-2.2) Urine Color Urine Appearance Urine pH (4.5-8.0) Ur Specific [place] (1.008-1.030) Urine Protein (NEGATIVE) mg/dL Urine Glucose (UA) (NEGATIVE) mg/dL Urine Ketones (NEGATIVE) mg/dL Urine Occult Blood (NEGATIVE) Urine Nitrite (NEGATIVE) Urine Bilirubin (NEGATIVE) Urine Urobilinogen (NORMAL) mg/dL Ur Leukocyte Esterase (NEGATIVE) Urine RBC (0-5) Urine WBC (0-5) Ur Epithelial Cells Amorphous Sediment Urine Bacteria Urine Mucus 07/25/17 07/25/17 07/25/17 Range/Units 09:40 09:40 10:11 WBC (4.5-11.0) K/uL RBC (3.30-5.50) M/uL Hgb (12.0-15.0) g/dL Hct (36.0-48.0) % MCV (80-98) fL MCH (27-31) pg MCHC (32-36) % Plt Count (150-400) K/uL Neut % (Auto) (36-66) % Lymph % (Auto) (24-44) % Dolores % (Auto) (2-6) % Eos % (Auto) (2-4) % Baso % (Auto) (0-1) % Puncture Site ABG pH (7.350-7.450) ABG pCO2 (35.0-42.0) mmHg ABG pO2 (75.0-100.0) mmHg ABG HCO3 (22.0-26.0) mmol/L ABG Total CO2 (21.0-25.0) mmol/L ABG O2 Saturation (95.0-98.0) % ABG O2 Content (15.0-23.0) %vol ABG Base Excess mm/L ABG Hemoglobin (12.0-16.0) g/dL ABG Oxyhemoglobin % ABG Carboxyhemoglobin (0.0-1.6) % ABG Methemoglobin % Edgar Test O2 Delivery Device Oxygen Flow Rate L Sodium (140-148) mmol/L Potassium (3.6-5.2) mmol/L Chloride (100-108) mmol/L Carbon Dioxide (21-32) mmol/L Anion Gap (5.0-14.0) mmol/L BUN (7-18) mg/dL Creatinine (0.6-1.0) mg/dL Est Cr Clr Drug Dosing mL/min Estimated GFR (MDRD) (>60) Glucose (74-106) mg/dL Lactic Acid (0.4-2.0) mmol/L Calcium (8.5-10.1) mg/dL Total Bilirubin (0.2-1.0) mg/dL AST (15-37) U/L ALT (12-78) U/L Alkaline Phosphatase (46-116) U/L Troponin I 0.020 (0.000-0.056) ng/mL C-Reactive Protein (0.0-0.3) mg/dL NT-Pro-B Natriuret Pep 2571 H (5-450) pg/mL Total Protein (6.4-8.2) g/dL Albumin (3.4-5.0) g/dL Globulin (2.3-3.5) g/dL Albumin/Globulin Ratio (1.2-2.2) Urine Color Yellow Urine Appearance Clear Urine pH 8.0 (4.5-8.0) Ur Specific [place] 1.010 (1.008-1.030) Urine Protein Negative (NEGATIVE) mg/dL Urine Glucose (UA) Normal (NEGATIVE) mg/dL Urine Ketones Negative (NEGATIVE) mg/dL Urine Occult Blood Negative (NEGATIVE) Urine Nitrite Negative (NEGATIVE) Urine Bilirubin Negative (NEGATIVE) Urine Urobilinogen Normal (NORMAL) mg/dL Ur Leukocyte Esterase Negative (NEGATIVE) Urine RBC Not seen (0-5) Urine WBC Not seen (0-5) Ur Epithelial Cells Not seen Amorphous Sediment Rare Urine Bacteria Not seen Urine Mucus Not seen 07/25/17 Range/Units 10:32 WBC (4.5-11.0) K/uL RBC (3.30-5.50) M/uL Hgb (12.0-15.0) g/dL Hct (36.0-48.0) % MCV (80-98) fL MCH (27-31) pg MCHC (32-36) % Plt Count (150-400) K/uL Neut % (Auto) (36-66) % Lymph % (Auto) (24-44) % [place] % (Auto) (2-6) % Eos % (Auto) (2-4) % Baso % (Auto) (0-1) % Puncture Site Lt radial ABG pH 7.463 H (7.350-7.450) ABG pCO2 55.4 H (35.0-42.0) mmHg ABG pO2 48.9 L (75.0-100.0) mmHg ABG HCO3 39.2 H (22.0-26.0) mmol/L ABG Total CO2 35.6 H (21.0-25.0) mmol/L ABG O2 Saturation 83.8 L (95.0-98.0) % ABG O2 Content 12.7 L (15.0-23.0) %vol ABG Base Excess 13.5 mm/L ABG Hemoglobin 11.0 L (12.0-16.0) g/dL ABG Oxyhemoglobin 82.4 % ABG Carboxyhemoglobin 1.0 (0.0-1.6) % ABG Methemoglobin 0.7 % Edgar Test Passed O2 Delivery Device Nasal cannula Oxygen Flow Rate 2 L Sodium (140-148) mmol/L Potassium (3.6-5.2) mmol/L Chloride (100-108) mmol/L Carbon Dioxide (21-32) mmol/L Anion Gap (5.0-14.0) mmol/L BUN (7-18) mg/dL Creatinine (0.6-1.0) mg/dL Est Cr Clr Drug Dosing mL/min Estimated GFR (MDRD) (>60) Glucose (74-106) mg/dL Lactic Acid (0.4-2.0) mmol/L Calcium (8.5-10.1) mg/dL Total Bilirubin (0.2-1.0) mg/dL AST (15-37) U/L ALT (12-78) U/L Alkaline Phosphatase (46-116) U/L Troponin I (0.000-0.056) ng/mL C-Reactive Protein (0.0-0.3) mg/dL NT-Pro-B Natriuret Pep (5-450) pg/mL Total Protein (6.4-8.2) g/dL Albumin (3.4-5.0) g/dL Globulin (2.3-3.5) g/dL Albumin/Globulin Ratio (1.2-2.2) Urine Color Urine Appearance Urine pH (4.5-8.0) Ur Specific [place] (1.008-1.030) Urine Protein (NEGATIVE) mg/dL Urine Glucose (UA) (NEGATIVE) mg/dL Urine Ketones (NEGATIVE) mg/dL Urine Occult Blood (NEGATIVE) Urine Nitrite (NEGATIVE) Urine Bilirubin (NEGATIVE) Urine Urobilinogen (NORMAL) mg/dL Ur Leukocyte Esterase (NEGATIVE) Urine RBC (0-5) Urine WBC (0-5) Ur Epithelial Cells Amorphous Sediment Urine Bacteria Urine Mucus Result Diagrams: 07/25/17 09:40 07/25/17 09:40 Aldo Results Last 24 hrs: Microbiology 07/25/17 10:28 Influenza Type A Antigen Screen - Final Nasopharyngeal Swab - Nare, Right NEGATIVE INFLUENZA A VIRUS AG Influenza Type B Antigen Screen - Final NEGATIVE INFLUENZA B VIRUS AG Imaging Impressions Last 24 hrs: CXR - images personally reviewed - hyperinflation, no definite mass or infiltrate *Q Meaningful Use (ADM) - VTE *Q VTE Criteria *Q: - VTE Risk Assess *Q Each Risk Factor Represents 1 Point: Serious lung disease including pneumonia, Abnormal Pulmonary Function (COPD) Total Score 1 Point Risk Factors: 2 Each Risk Factor Represents 3 Points: Age 75 Years or Greater Total Score 3 Point Risk Factors: 3 Each Risk Factor Represents 5 Points: None Total Score 5 Point Risk Factors: 0 - Stroke *Q Stroke Criteria *Q: - AMI *Q AMI Criteria *Q: - Problem List (1) Acute bronchitis SNOMED Code(s): 47423066 ICD Code: J20.9 - ACUTE BRONCHITIS, UNSPECIFIED Status: Acute Current Visit: Yes Qualifiers: Bronchitis organism: unspecified organism Qualified Code(s): J20.9 - Acute bronchitis, unspecified (2) COPD exacerbation SNOMED Code(s): 677989177718456 ICD Code: J44.1 - CHRONIC OBSTRUCTIVE PULMONARY DISEASE W (ACUTE) EXACERBATION Status: Acute Current Visit: Yes (3) Chronic respiratory failure with hypoxia Status: Chronic Current Visit: Yes (4) 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 SNOMED Code(s): 41600482806074495 ICD Code: I87.2 - VENOUS INSUFFICIENCY (CHRONIC) (PERIPHERAL); R60.9 - EDEMA , UNSPECIFIED Status: Chronic Priority: Medium Current Visit: No Problem List Initiated/Reviewed/Updated: Yes Orders Last 24hrs: Active Orders 24 hr Category Date Time Status Patient Status Manage Transfer [TRANSFER] Routine ADT 07/25/17 11:46 Ordered RT Aerosol Therapy [RC] ASDIRECTED Care 07/25/17 09:32 Active Vital Signs [RC] Q1H Care 07/25/17 09:28 Active CULTURE BLOOD [BC] Urgent Lab 07/25/17 09:40 Received CULTURE BLOOD [BC] Urgent Lab 07/25/17 09:40 Received CULTURE RESPIRATORY + SMEAR [RM] Routine Lab 07/25/17 11:45 Uncollected Lactated Ringers [Ringers, Lactated] 1,000 ml Med 07/25/17 09:30 Active IV ASDIRECTED Levofloxacin/Dextrose 5%-Water [Levaquin in D5W 750 MG/ Med 07/25/17 11:45 Active 150 ML] 750 mg Premix Bag 1 bag IV ONETIME Piperacillin/Tazobactam/Dext [Zosyn in Dextrose Iso- Med 07/25/17 10:00 Active Osmotic] 4.5 gm Premix Bag 1 bag IV Q6H Potassium Chloride 20 meq Med 07/25/17 11:00 Active Lidocaine 1% [Xylocaine 1%] 2 ml Sodium Chloride 0.9% [Normal Saline] 100 ml IV Q2H Blood Culture x2 Reflex Set [OM.PC] Urgent Oth 07/25/17 09:28 Ordered Resuscitation Status Routine Resus Stat 07/25/17 11:50 Ordered Medication Orders Lactated Ringer's (Ringers, Lactated) 1,000 mls @ 999 mls/hr IV ASDIRECTED LEISA Last Admin: 07/25/17 10:10 Dose: 999 mls/hr Piperacillin/Tazobactam/ (Dextrose 4.5 gm/ Premix) 100 mls @ 200 mls/hr IV Q6H LEISA Last Admin: 07/25/17 10:10 Dose: 200 mls/hr Potassium Chloride 20 meq/Lidocaine HCl 2 ml/ Sodium Chloride 112 mls @ 56 mls/ hr IV Q2H [facility] Stop: 07/25/17 14:59 Last Admin: 07/25/17 11:09 Dose: 56 mls/hr Levofloxacin/Dextrose 750 mg/ (Premix) 150 mls @ 100 mls/hr IV ONETIME ONE Stop: 07/25/17 13:14 Assessment/Plan Comment:: ASSESSMENT AND PLAN - Acute bronchitis with COPD exacerbation - progressive symptoms despite outpatient treatment for influenza. She has never had a positive titer for influenza. Bacterial infection is suspected at this time. She was wheezing at the time of ED evaluation and steroids were administered. She has received antibiotics in the emergency room and cultures have been obtained. She has hypoxic and very weak and lethargic. -Antibiotic coverage with levofloxacin and Pip/Tazo -IV steroids -Supplement oxygen -Scheduled and as needed nebulizers -Probiotics Hypoxic respiratory failure - acute on chronic. Secondary to acute infection and COPD exacerbation as above. -Management as above Chronic lower extremity edema - suspect venous insufficiency. Edema is actually much improved with recent dehydration. -Hold diuretic Essential hypertension - blood pressure tolerable at this time and usual medications will be continued. Maintenance issues - - DVT prophylaxis - enoxaparin - GI prophylaxis - PPI - Nutrition - regular diet as tolerated - Meade catheter - not indicated CODE STATUS - full code Admission justification - This patient will be admitted for inpatient services and is medically appropriate meeting medical necessity for inpatient admission as outlined in my documentation. I reasonably expect the patient will require inpatient services that span a period time over 2 midnights. I reasonably expect this patient to be discharged or transferred within 96 hours [facility]. Disposition - [facility] after the hospital stay Primary care physician - Dr Joseph Galvez M.D.
[2017-07-25] MEDS ORDERED: Non-Formulary Medication 1 Each (Guaifenesin/Dextromethorphan [Mucinex Dm Er 600-30 Mg Tab PO PRN (13:52)
[2017-07-25] MEDS ORDERED: Acetaminophen 325 MG Tab PO PRN (13:52)
[2017-07-25] MEDS ORDERED: ALPRAZolam 0.25 MG Tab PO PRN (13:52)
[2017-07-25] MEDS ORDERED: Albuterol 0.083% 2.5 MG/3 ML Neb Soln NEB PRN (13:52)
[2017-07-25] MEDS: Ondansetron 4 MG/2 ML SDV IV PRN (14:15)
[2017-07-25] MEDS: Albuterol/Ipratropium 3.0-0.5 MG/3 ML Neb Soln NEB SCH ×2 (14:52→21:10)
[2017-07-25] MEDS ORDERED: Potassium Chloride 20 MEQ, Lidocaine 1% 2 ML in Sodium Chloride 0.9% 100 ML IV SCH (15:00)
[2017-07-25] MEDS ORDERED: Docusate Sodium 100 MG Cap PO PRN (16:44)
[2017-07-25] MEDS ORDERED: Piperacillin/Tazobactam 3.375 GM in Sodium Chloride 0.9% 50 ML IV SCH (17:00)
[2017-07-25] MEDS: Ondansetron 4 MG Tab.DIS PO PRN (17:06)
[2017-07-25] MEDS: Piperacillin/Tazobactam/Dext 3.375 GM in Premix Bag 1 BAG IV SCH ×2 (17:07→23:42)
[2017-07-25] MEDS: Acetaminophen 325 MG Tab PO PRN ×2 (17:11→21:13)
[2017-07-25] MEDS: Benzonatate 100 MG Cap PO PRN (20:12)
[2017-07-25] MEDS: guaiFENesin 600 MG Tab.ER PO PRN (20:12)
[2017-07-25] MEDS: methylPREDNISolone Sodium Succinate 125 MG/2 ML SDV IVPUSH SCH (20:44)
[2017-07-25] MEDS: ALPRAZolam 0.25 MG Tab PO SCH (21:10)
[2017-07-25] MEDS: Budesonide 0.5 MG/2 ML Neb Susp INH SCH (21:10)
[2017-07-25] MEDS: Citalopram 10 MG Tab PO SCH (21:10)
[2017-07-25] MEDS: Simvastatin 20 MG Tab PO SCH (21:10)
[2017-07-25] MEDS: Sodium Chloride 0.9% 1,000 ML IV SCH (21:42)
[2017-07-25] MEDS: Arformoterol 15 MCG/2 ML Neb Soln INH SCH (22:12)
[2017-07-25] MEDS: oxyCODONE 5 MG Tab PO PRN ×2 (22:16→23:45)
[2017-07-26] MEDS: methylPREDNISolone Sodium Succinate 125 MG/2 ML SDV IVPUSH SCH ×3 (04:16→19:43)
[2017-07-26] MEDS: Piperacillin/Tazobactam/Dext 3.375 GM in Premix Bag 1 BAG IV SCH ×4 (04:16→22:51)
[2017-07-26] MEDS: Benzonatate 100 MG Cap PO PRN ×2 (06:01→17:33)
[2017-07-26] MEDS: Sodium Chloride 0.9% 1,000 ML IV SCH ×2 (06:03→16:24)
[2017-07-26] MEDS: Pantoprazole 40 MG Tab.CR PO SCH (07:42)
[2017-07-26] MEDS: Acetaminophen 325 MG Tab PO PRN ×3 (07:50→23:09)
[2017-07-26] MEDS: Aspirin 81 MG Tab.EC PO SCH (08:00)
[2017-07-26] MEDS: Lisinopril 5 MG Tab PO SCH (08:00)
[2017-07-26] MEDS: Enoxaparin 40 MG/0.4 ML Syringe SUBCUT SCH (08:00)
[2017-07-26] MEDS: Budesonide 0.5 MG/2 ML Neb Susp INH SCH ×2 (08:05→20:14)
[2017-07-26] MEDS: Albuterol/Ipratropium 3.0-0.5 MG/3 ML Neb Soln NEB SCH ×4 (08:05→20:14)
[2017-07-26] MEDS: Arformoterol 15 MCG/2 ML Neb Soln INH SCH ×2 (08:21→20:15)
[2017-07-26] MEDS: ALPRAZolam 0.25 MG Tab PO SCH ×2 (09:01→20:06)
[2017-07-26] MEDS: oxyCODONE 5 MG Tab PO PRN ×3 (09:21→20:06)
--- NOTE | 2017-07-26 10:44 | PCM.PN ---
- General Info Date of Service: 07/26/17 Functional Status: Reports: Pain Controlled - Review of Systems General: Reports: Weakness. Denies: Fever Pulmonary: Reports: Shortness of Breath, Cough Systems Review Comment:: No acute events overnight. Feels short of breath this morning. Feels very weak and tired but overall looks better today. She has been stable on 2 L of supplemental oxygen. She has a loose but essentially nonproductive cough. She has diffuse myalgias. She has not been running any fevers. - Patient Data Vitals - Most Recent: Last Vital Signs Temp 36.3 C 07/26/17 07:00 Pulse 88 07/26/17 09:05 Resp 18 07/26/17 07:00 BP 172/68 H 07/26/17 09:05 Pulse Ox 95 07/26/17 09:05 Weight - Most Recent: 40.823 kg I&O - Last 24 Hours: Intake & Output 07/25/17 07/26/17 07/26/17 22:59 06:59 14:59 Intake Total 1342 2242 770 Output Total 1450 200 150 Balance -108 2042 620 Lab Results Last 24 Hours: Laboratory Results - last 24 hr 07/26/17 07/26/17 Range/Units 05:47 05:47 WBC 12.1 H (4.5-11.0) K/uL RBC 3.52 (3.30-5.50) M/uL Hgb 10.5 L (12.0-15.0) g/dL Hct 32.9 L (36.0-48.0) % MCV 94 (80-98) fL MCH 30 (27-31) pg MCHC 32 (32-36) % Plt Count 334 (150-400) K/uL Sodium 133 L (140-148) mmol/L Potassium 4.3 (3.6-5.2) mmol/L Chloride 95 L (100-108) mmol/L Carbon Dioxide 34 H (21-32) mmol/L Anion Gap 8.3 (5.0-14.0) mmol/L BUN 7 (7-18) mg/dL Creatinine 0.8 (0.6-1.0) mg/dL Est Cr Clr Drug Dosing 35.59 mL/min Estimated GFR (MDRD) > 60 (>60) Glucose 154 H (74-106) mg/dL Calcium 8.1 L (8.5-10.1) mg/dL Aldo Results Last 24 Hours: Microbiology 07/25/17 18:19 Gram Stain - Final Sputum - Expectorated Med Orders - Current: Current Medications Acetaminophen (Tylenol) 650 mg PO Q4H PRN PRN Reason: Pain (Mild 1-3)/fever Last Admin: 07/26/17 07:50 Dose: 650 mg Albuterol (Proventil Neb Soln) 2.5 mg NEB Q4H PRN PRN Reason: Shortness Of Breath/wheezing Albuterol/Ipratropium (Duoneb 3.0-0.5 Mg/3 Ml) 3 ml NEB QIDRT [facility] Last Admin: 07/26/17 08:05 Dose: 3 ml Alprazolam (Xanax) 0.25 mg PO BID [facility] Last Admin: 07/26/17 09:01 Dose: 0.25 mg Alprazolam (Xanax) 0.25 mg PO Q6H PRN PRN Reason: Anxiety Last Admin: 07/25/17 17:12 Dose: 0.25 mg Arformoterol Tartrate (Brovana) 15 mcg INH BIDRT [facility] Last Admin: 07/26/17 08:21 Dose: 15 mcg Aspirin (Halfprin) 81 mg PO DAILY [facility] Last Admin: 07/26/17 08:00 Dose: 81 mg Benzonatate (Tessalon Perles) 100 mg PO TID PRN PRN Reason: Cough Last Admin: 07/26/17 06:01 Dose: 100 mg Budesonide (Pulmicort) 0.5 mg INH BIDRT [facility] Last Admin: 07/26/17 08:05 Dose: 0.5 mg Citalopram Hydrobromide (Celexa) 10 mg PO BEDTIME [facility] Last Admin: 07/25/17 21:10 Dose: 10 mg Docusate Sodium (Colace) 100 mg PO BID PRN PRN Reason: Constipation Enoxaparin Sodium (Lovenox) 40 mg SUBCUT DAILY [facility] Last Admin: 07/26/17 08:00 Dose: 40 mg Guaifenesin (Mucinex) 600 mg PO Q12H PRN PRN Reason: SECRETIONS Last Admin: 07/25/17 20:12 Dose: 600 mg Piperacillin/Tazobactam/ (Dextrose 3.375 gm/ Premix) 50 mls @ 100 mls/hr IV Q6H [facility] Last Admin: 07/26/17 10:39 Dose: 100 mls/hr Levofloxacin/Dextrose 750 mg/ (Premix) 150 mls @ 100 mls/hr IV Q48H [facility] Lisinopril (Prinivil) 5 mg PO DAILY [facility] Last Admin: 07/26/17 08:00 Dose: 5 mg Methylprednisolone Sodium Succinate (Solu-Medrol) 62.5 mg IVPUSH Q8H [facility] Last Admin: 07/26/17 04:16 Dose: 62.5 mg Ondansetron HCl (Zofran Odt) 4 mg PO Q6H PRN PRN Reason: Nausea able to take PO Last Admin: 07/25/17 17:06 Dose: 4 mg Ondansetron HCl (Zofran) 4 mg IV Q6H PRN PRN Reason: Nausea/Vomiting Last Admin: 07/25/17 14:15 Dose: 4 mg Oxycodone HCl (Oxycodone) 5 - 10 mg PO Q4H PRN PRN Reason: Pain Last Admin: 07/26/17 09:21 Dose: 5 mg Pantoprazole Sodium (Protonix) 40 mg PO ACBREAKFAST [facility] Last Admin: 07/26/17 07:42 Dose: 40 mg Simvastatin (Zocor) 20 mg PO BEDTIME [facility] Last Admin: 07/25/17 21:10 Dose: 20 mg Discontinued Medications Albuterol/Ipratropium (Duoneb 3.0-0.5 Mg/3 Ml) 3 ml NEB ONETIME ONE Stop: 07/25/17 09:33 Last Admin: 07/25/17 09:47 Dose: 3 ml Lactated Ringer's (Ringers, Lactated) 1,000 mls @ 999 mls/hr IV ASDIRECTED [facility] Last Admin: 07/25/17 10:10 Dose: 999 mls/hr Piperacillin/Tazobactam/ (Dextrose 4.5 gm/ Premix) 100 mls @ 200 mls/hr IV Q6H [facility] Last Admin: 07/25/17 10:10 Dose: 200 mls/hr Potassium Chloride 20 meq/Lidocaine HCl 2 ml/ Sodium Chloride 112 mls @ 56 mls/ hr IV Q2H [facility] Stop: 07/25/17 14:59 Last Admin: 07/25/17 14:44 Dose: 56 mls/hr Levofloxacin/Dextrose 750 mg/ (Premix) 150 mls @ 100 mls/hr IV ONETIME ONE Stop: 07/25/17 13:14 Last Admin: 07/25/17 13:18 Dose: 100 mls/hr Sodium Chloride (Normal Saline) 1,000 mls @ 125 mls/hr IV ASDIRECTED [facility] Last Admin: 07/26/17 06:03 Dose: 125 mls/hr Potassium Chloride 20 meq/Lidocaine HCl 2 ml/ Sodium Chloride 112 mls @ 56 mls/ hr IV Q2H [facility] Stop: 07/25/17 20:59 Last Admin: 07/25/17 20:39 Dose: 56 mls/hr Methylprednisolone Sodium Succinate (Solu-Medrol) 125 mg IVPUSH ONETIME ONE Stop: 07/25/17 10:45 Last Admin: 07/25/17 11:07 Dose: 125 mg Ondansetron HCl (Zofran) 4 mg IVPUSH ONETIME ONE Stop: 07/25/17 10:56 Last Admin: 07/25/17 11:07 Dose: 4 mg Potassium Chloride (Klor-Con M20) 40 meq PO ONETIME ONE Stop: 07/25/17 10:29 Last Admin: 07/25/17 10:50 Dose: 40 meq - Exam Quality Assessment: Supplemental Oxygen General: Alert, Oriented, Cooperative, Mild Distress Lungs: Wheezing (diffuse expiratory). No: Normal Respiratory Effort (increased work of breathing) Cardiovascular: Regular Rhythm, Tachycardia GI/Abdominal Exam: Soft, No Distention Extremities: No Pedal Edema Skin: Warm, Dry Psy/Mental Status: Alert, Anxious - Problem List & Annotations (1) Acute bronchitis SNOMED Code(s): 77843775 Code(s): J20.9 - ACUTE BRONCHITIS, UNSPECIFIED Status: Acute Current Visit: Yes Qualifiers: Bronchitis organism: unspecified organism Qualified Code(s): J20.9 - Acute bronchitis, unspecified (2) COPD exacerbation SNOMED Code(s): 582011337922328 Code(s): J44.1 - CHRONIC OBSTRUCTIVE PULMONARY DISEASE W (ACUTE) EXACERBATION Status: Acute Current Visit: Yes (3) Chronic respiratory failure with hypoxia Status: Chronic Current Visit: Yes (4) 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 SNOMED Code(s): 06794328967136443 Code(s): I87.2 - VENOUS INSUFFICIENCY (CHRONIC) (PERIPHERAL); R60.9 - EDEMA, UNSPECIFIED Status: Chronic Priority: Medium Current Visit: No - Problem List Review Problem List Initiated/Reviewed/Updated: Yes - My Orders Last 24 Hours: My Active Orders 07/25/17 11:50 Resuscitation Status Routine 07/25/17 13:52 Patient Status [ADT] Routine Bedrest Bedside Commode [RC] ASDIRECTED Intake and Output [RC] QSHIFT Notify Provider Vital Signs [RC] ASDIRECTED Oxygen Therapy [RC] PRN Up With Assistance [RC] ASDIRECTED VTE/DVT Education [RC] Per Unit Routine Vital Signs [RC] Q4H Acetaminophen [Tylenol] 650 mg PO Q4H PRN Albuterol [Proventil Neb Soln] 2.5 mg NEB Q4H PRN Benzonatate [Tessalon Perles] 100 mg PO TID PRN Ondansetron [Zofran ODT] 4 mg PO Q6H PRN Ondansetron [Zofran] 4 mg IV Q6H PRN 07/25/17 15:00 Albuterol/Ipratropium [DuoNeb 3.0-0.5 MG/3 ML] 3 ml NEB QIDRT 07/25/17 15:15 guaiFENesin [Mucinex] 600 mg PO Q12H PRN 07/25/17 16:44 Docusate Sodium [Colace] 100 mg PO BID PRN 07/25/17 17:00 Piperacillin/Tazobactam/Dext [Zosyn in Dextrose Iso-Osmotic 3.375 GM] 3.375 gm Premix Bag 1 bag IV Q6H 07/25/17 20:00 methylPREDNISolone Sod Succ [Solu-MEDROL] 62.5 mg IVPUSH Q8H 07/25/17 Lunch Regular Diet [DIET] 07/26/17 07:30 Pantoprazole [ProTONIX] 40 mg PO ACBREAKFAST 07/26/17 09:00 Enoxaparin [Lovenox] 40 mg SUBCUT DAILY 07/26/17 10:41 Ibuprofen [Motrin] 600 mg PO Q6H PRN 07/26/17 10:45 Sodium Chloride 0.9% [Normal Saline] 1,000 ml IV ASDIRECTED 07/27/17 05:00 BASIC METABOLIC PANEL,BMP [CHEM] Timed CBC W/O DIFF,HEMOGRAM [HEME] Timed (1) 07/27/17 12:00 Levofloxacin/Dextrose 5%-Water [Levaquin in D5W 750 MG/150 ML] 750 mg Premix Bag 1 bag IV Q48H - Plan Plan:: ASSESSMENT AND PLAN - Acute bronchitis with COPD exacerbation - clinically little better but still feels unwell. Examination improved compared to yesterday. White count trending down. No fevers. Still hypoxic. Still significant wheezing and air flow impairment. -Antibiotic coverage with levofloxacin and Pip/Tazo -Continue IV steroids -Supplement oxygen -Scheduled and as needed nebulizers -Probiotics Hypoxic respiratory failure - acute on chronic. Secondary to acute infection and COPD exacerbation as above. -Management as above Chronic lower extremity edema - suspect venous insufficiency. No edema at this time. -Hold diuretic, reassess tomorrow Essential hypertension - blood pressure tolerable at this time and usual medications will be continued. Maintenance issues - - DVT prophylaxis - enoxaparin - GI prophylaxis - PPI - Nutrition - regular diet as tolerated Disposition - anticipate discharge back to the long-term after the hospital stay Torres Galvez M.D.
[2017-07-26] MEDS: Ibuprofen 600 MG Tab PO PRN ×2 (10:47→17:32)
[2017-07-26] MEDS ORDERED: Levofloxacin/Dextrose 5%-Water 750 MG in Premix Bag 1 BAG IV SCH (12:00)
[2017-07-26] MEDS: Ondansetron 4 MG/2 ML SDV IV PRN (13:15)
[2017-07-26] MEDS: guaiFENesin 600 MG Tab.ER PO PRN (14:53)
[2017-07-26] MEDS: Benzocaine/Cetylpyridinium/Menthol Lozenge MUCMEM PRN (17:33)
[2017-07-26] MEDS: Citalopram 10 MG Tab PO SCH (20:06)
[2017-07-26] MEDS: Simvastatin 20 MG Tab PO SCH (20:06)
[2017-07-27] MEDS: oxyCODONE 5 MG Tab PO PRN ×4 (00:53→20:31)
[2017-07-27] MEDS: ALPRAZolam 0.25 MG Tab PO PRN ×4 (00:53→21:23)
[2017-07-27] MEDS: methylPREDNISolone Sodium Succinate 125 MG/2 ML SDV IVPUSH SCH (04:52)
[2017-07-27] MEDS: Piperacillin/Tazobactam/Dext 3.375 GM in Premix Bag 1 BAG IV SCH ×4 (05:01→23:58)
[2017-07-27] MEDS: Budesonide 0.5 MG/2 ML Neb Susp INH SCH ×2 (07:32→20:43)
[2017-07-27] MEDS: Albuterol/Ipratropium 3.0-0.5 MG/3 ML Neb Soln NEB SCH ×4 (07:32→20:43)
[2017-07-27] MEDS: Arformoterol 15 MCG/2 ML Neb Soln INH SCH ×2 (07:32→20:43)
[2017-07-27] MEDS: Sodium Chloride 0.9% 1,000 ML IV SCH (07:49)
[2017-07-27] MEDS: Pantoprazole 40 MG Tab.CR PO SCH (07:49)
[2017-07-27] MEDS: Lisinopril 5 MG Tab PO SCH (08:52)
[2017-07-27] MEDS: Enoxaparin 40 MG/0.4 ML Syringe SUBCUT SCH (08:52)
[2017-07-27] MEDS: Aspirin 81 MG Tab.EC PO SCH (08:52)
[2017-07-27] MEDS: Benzonatate 100 MG Cap PO PRN ×2 (10:47→20:31)
[2017-07-27] MEDS: Acetaminophen 325 MG Tab PO PRN ×2 (11:16→21:01)
[2017-07-27] MEDS: Benzocaine/Cetylpyridinium/Menthol Lozenge MUCMEM PRN ×2 (11:17→18:13)
[2017-07-27] MEDS ORDERED: Sodium Chloride 0.9% 1,000 ML IV SCH (11:31)
[2017-07-27] MEDS ORDERED: Magnesium Hydroxide 400 MG/5 ML Susp 30 ML Cup PO PRN (11:34)
--- NOTE | 2017-07-27 11:37 | PCM.PN ---
- General Info Date of Service: 07/27/17 - Review of Systems General: Reports: Weakness. Denies: Fever HEENT: Reports: Sore Throat Pulmonary: Reports: Shortness of Breath 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: Reports: Other (diffuse myalgias) Systems Review Comment:: No acute events overnight. Shortness of breath is a little better today. Still coughing a fair amount. Feels weak and tired. Still hurts all over with diffuse myalgias. She has not had any fevers. Sore throat is better with Cepacol. Sputum culture growing a few yeast and possible fungus with identification pending. Clinically better, wheezing decreased. - Patient Data Vitals - Most Recent: Last Vital Signs Temp 36.2 C 07/27/17 07:18 Pulse 90 07/27/17 07:33 Resp 16 07/27/17 07:18 BP 159/72 H 07/27/17 08:52 Pulse Ox 100 07/27/17 07:18 Weight - Most Recent: 40.823 kg I&O - Last 24 Hours: Intake & Output 07/26/17 07/27/17 07/27/17 22:59 06:59 14:59 Intake Total 1717 874 867 Output Total 750 650 750 Balance 967 224 117 Lab Results Last 24 Hours: Laboratory Results - last 24 hr 07/27/17 07/27/17 Range/Units 05:48 05:48 WBC 20.0 H (4.5-11.0) K/uL RBC 3.45 (3.30-5.50) M/uL Hgb 10.3 L (12.0-15.0) g/dL Hct 32.0 L (36.0-48.0) % MCV 93 (80-98) fL MCH 30 (27-31) pg MCHC 32 (32-36) % Plt Count 386 (150-400) K/uL Sodium 129 L (140-148) mmol/L Potassium 3.7 (3.6-5.2) mmol/L Chloride 92 L (100-108) mmol/L Carbon Dioxide 29 (21-32) mmol/L Anion Gap 11.7 (5.0-14.0) mmol/L BUN 12 D (7-18) mg/dL Creatinine 1.1 H (0.6-1.0) mg/dL Est Cr Clr Drug Dosing 23.22 mL/min Estimated GFR (MDRD) 47 L (>60) Glucose 134 H (74-106) mg/dL Calcium 8.4 L (8.5-10.1) mg/dL Aldo Results Last 24 Hours: Microbiology 07/25/17 18:19 Gram Stain - Final Sputum - Expectorated Respiratory Culture - Preliminary Med Orders - Current: Current Medications Acetaminophen (Tylenol) 650 mg PO Q4H PRN PRN Reason: Pain (Mild 1-3)/fever Last Admin: 07/27/17 11:16 Dose: 650 mg Albuterol (Proventil Neb Soln) 2.5 mg NEB Q4H PRN PRN Reason: Shortness Of Breath/wheezing Albuterol/Ipratropium (Duoneb 3.0-0.5 Mg/3 Ml) 3 ml NEB QIDRT [facility] Last Admin: 07/27/17 10:44 Dose: 3 ml Alprazolam (Xanax) 0.5 - 1 mg PO Q4H PRN PRN Reason: Anxiety Last Admin: 07/27/17 10:40 Dose: 0.5 mg Arformoterol Tartrate (Brovana) 15 mcg INH BIDRT [facility] Last Admin: 07/27/17 07:32 Dose: 15 mcg Aspirin (Halfprin) 81 mg PO DAILY [facility] Last Admin: 07/27/17 08:52 Dose: 81 mg Benzocaine/Menthol (Cepacol Sore Throat) 1 lozenge MUCMEM ASDIRECTED PRN PRN Reason: sore throat Last Admin: 07/27/17 11:17 Dose: 1 sheba Benzonatate (Tessalon Perles) 100 mg PO TID PRN PRN Reason: Cough Last Admin: 07/27/17 10:47 Dose: 100 mg Budesonide (Pulmicort) 0.5 mg INH BIDRT [facility] Last Admin: 07/27/17 07:32 Dose: 0.5 mg Citalopram Hydrobromide (Celexa) 10 mg PO BEDTIME [facility] Last Admin: 07/26/17 20:06 Dose: 10 mg Docusate Sodium (Colace) 100 mg PO BID PRN PRN Reason: Constipation Last Admin: 07/27/17 10:48 Dose: 100 mg Enoxaparin Sodium (Lovenox) 40 mg SUBCUT DAILY [facility] Last Admin: 07/27/17 08:52 Dose: 40 mg Guaifenesin (Mucinex) 600 mg PO Q12H PRN PRN Reason: SECRETIONS Last Admin: 07/26/17 14:53 Dose: 600 mg Piperacillin/Tazobactam/ (Dextrose 3.375 gm/ Premix) 50 mls @ 100 mls/hr IV Q6H [facility] Last Admin: 07/27/17 10:39 Dose: 100 mls/hr Levofloxacin/Dextrose 750 mg/ (Premix) 150 mls @ 100 mls/hr IV Q48H [facility] Ibuprofen (Motrin) 600 mg PO Q6H PRN PRN Reason: Pain/Fever Last Admin: 07/26/17 17:32 Dose: 600 mg Lisinopril (Prinivil) 5 mg PO DAILY [facility] Last Admin: 07/27/17 08:52 Dose: 5 mg Ondansetron HCl (Zofran Odt) 4 mg PO Q6H PRN PRN Reason: Nausea able to take PO Last Admin: 07/25/17 17:06 Dose: 4 mg Ondansetron HCl (Zofran) 4 mg IV Q6H PRN PRN Reason: Nausea/Vomiting Last Admin: 07/26/17 13:15 Dose: 4 mg Oxycodone HCl (Oxycodone) 5 - 10 mg PO Q4H PRN PRN Reason: Pain Last Admin: 07/27/17 10:39 Dose: 5 mg Pantoprazole Sodium (Protonix) 40 mg PO ACBREAKFAST [facility] Last Admin: 07/27/17 07:49 Dose: 40 mg Simvastatin (Zocor) 20 mg PO BEDTIME [facility] Last Admin: 07/26/17 20:06 Dose: 20 mg Discontinued Medications Albuterol/Ipratropium (Duoneb 3.0-0.5 Mg/3 Ml) 3 ml NEB ONETIME ONE Stop: 07/25/17 09:33 Last Admin: 07/25/17 09:47 Dose: 3 ml Alprazolam (Xanax) 0.25 mg PO BID [facility] Last Admin: 07/26/17 20:06 Dose: 0.25 mg Alprazolam (Xanax) 0.25 mg PO Q6H PRN PRN Reason: Anxiety Last Admin: 07/25/17 17:12 Dose: 0.25 mg Lactated Ringer's (Ringers, Lactated) 1,000 mls @ 999 mls/hr IV ASDIRECTED [facility] Last Admin: 07/25/17 10:10 Dose: 999 mls/hr Piperacillin/Tazobactam/ (Dextrose 4.5 gm/ Premix) 100 mls @ 200 mls/hr IV Q6H [facility] Last Admin: 07/25/17 10:10 Dose: 200 mls/hr Potassium Chloride 20 meq/Lidocaine HCl 2 ml/ Sodium Chloride 112 mls @ 56 mls/ hr IV Q2H [facility] Stop: 07/25/17 14:59 Last Admin: 07/25/17 14:44 Dose: 56 mls/hr Levofloxacin/Dextrose 750 mg/ (Premix) 150 mls @ 100 mls/hr IV ONETIME ONE Stop: 07/25/17 13:14 Last Admin: 07/25/17 13:18 Dose: 100 mls/hr Sodium Chloride (Normal Saline) 1,000 mls [facility] Admin: 07/26/17 06:03 Dose: 125 mls/hr Potassium Chloride 20 meq/Lidocaine HCl 2 ml/ Sodium Chloride 112 mls @ 56 mls/ hr IV Q2H [facility] Stop: 07/25/17 20:59 Last Admin: 07/25/17 20:39 Dose: 56 mls/hr Sodium Chloride (Normal Saline) 1,000 mls @ 75 [facility]ls[facility] Last Admin: 07/27/17 07:49 Dose: 75 mls/hr Methylprednisolone Sodium Succinate (Solu-Medrol) 125 mg IVPUSH ONETIME ONE Stop: 07/25/17 10:45 Last Admin: 07/25/17 11:07 Dose: 125 mg Methylprednisolone Sodium Succinate (Solu-Medrol) 62.5 mg IVPUSH Q8H [facility] Last Admin: 07/27/17 04:52 Dose: 62.5 mg Ondansetron HCl (Zofran) 4 mg IVPUSH ONETIME ONE Stop: 07/25/17 10:56 Last Admin: 07/25/17 11:07 Dose: 4 mg Potassium Chloride (Klor-Con M20) 40 meq PO ONETIME ONE Stop: 07/25/17 10:29 Last Admin: 07/25/17 10:50 Dose: 40 meq - Exam Quality Assessment: Supplemental Oxygen General: Alert, Oriented, Cooperative, Mild Distress Neck: Supple Lungs: Normal Respiratory Effort, Decreased Breath Sounds (both bases), Wheezing (mild diffuse end exp wheezing). No: Crackles Cardiovascular: Regular Rate, Regular Rhythm GI/Abdominal Exam: Normal Bowel Sounds, Soft, No Distention Skin: Warm, Dry Psy/Mental Status: Alert, Normal Affect - Problem List & Annotations (1) Acute bronchitis SNOMED Code(s): 56317567 Code(s): J20.9 - ACUTE BRONCHITIS, UNSPECIFIED Status: Acute Current Visit: Yes Qualifiers: Bronchitis organism: unspecified organism Qualified Code(s): J20.9 - Acute bronchitis, unspecified (2) COPD exacerbation SNOMED Code(s): 958456410324994 Code(s): J44.1 - CHRONIC OBSTRUCTIVE PULMONARY DISEASE W (ACUTE) EXACERBATION Status: Acute Current Visit: Yes (3) Chronic respiratory failure with hypoxia Status: Chronic Current Visit: Yes (4) 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 SNOMED Code(s): 78799662253952924 Code(s): I87.2 - VENOUS INSUFFICIENCY (CHRONIC) (PERIPHERAL); R60.9 - EDEMA, UNSPECIFIED Status: Chronic Priority: Medium Current Visit: No - Problem List Review Problem List Initiated/Reviewed/Updated: Yes - My Orders Last 24 Hours: My Active Orders 07/26/17 10:41 Ibuprofen [Motrin] 600 mg PO Q6H PRN 07/26/17 10:45 Sodium Chloride 0.9% [Normal Saline] 1,000 ml IV ASDIRECTED 07/26/17 16:26 Benzocaine/Cetylpyrd/Menthol [Cepacol Sore Throat] 1 lozenge MUCMEM ASDIRECTED PRN RT Acapella [RESPCARE] Routine 07/27/17 11:31 Sodium Chloride 0.9% [Normal Saline] 1,000 ml IV ASDIRECTED 07/27/17 11:34 Magnesium Hydroxide [Milk of Magnesia] 30 ml PO BID PRN 07/27/17 11:45 Propranolol [Inderal LA] 60 mg PO DAILY 07/27/17 12:00 Levofloxacin/Dextrose 5%-Water [Levaquin in D5W 750 MG/150 ML] 750 mg Premix Bag 1 bag IV Q48H 07/27/17 16:30 predniSONE 20 mg PO BIDAC 07/28/17 05:00 BASIC METABOLIC PANEL,BMP [CHEM] Timed CBC W/O DIFF,HEMOGRAM [HEME] Timed (1) - Plan Plan:: ASSESSMENT AND PLAN - Acute bronchitis with COPD exacerbation - clinically looks and feels a little better today. Still requiring supplemental oxygen. Sputum culture appears to have some yeast and possibly a fungus but clinically doing better with only bacterial coverage. -Antibiotic coverage with levofloxacin and Pip/Tazo -transition to prednisone today -Supplement oxygen -Scheduled and as needed nebulizers -Probiotics Hypoxic respiratory failure - acute on chronic. Secondary to acute infection and COPD exacerbation as above. -Management as above Chronic lower extremity edema - suspect venous insufficiency. No edema at this time. -Hold diuretic, reassess daily Essential hypertension - blood pressure has been stable. Maintenance issues - - DVT prophylaxis - enoxaparin - GI prophylaxis - PPI - Nutrition - regular diet as tolerated Disposition - anticipate discharge back to the [place] [facility] after the hospital stay Torres Galvez M.D.
[2017-07-27] MEDS ORDERED: Levofloxacin/Dextrose 5%-Water 750 MG in Premix Bag 1 BAG IV SCH (12:00)
[2017-07-27] MEDS: Propranolol 60 MG Cap.ER PO SCH (12:45)
[2017-07-27] MEDS: Ondansetron 4 MG/2 ML SDV IV PRN (15:17)
[2017-07-27] MEDS: predniSONE 20 MG Tab PO SCH (17:20)
[2017-07-27] MEDS ORDERED: Polyethylene Glycol 3350 Powder 17 GM Packet PO PRN (18:10)
[2017-07-27] MEDS: guaiFENesin 600 MG Tab.ER PO PRN (18:13)
[2017-07-27] MEDS: Citalopram 10 MG Tab PO SCH (20:32)
[2017-07-27] MEDS: Simvastatin 20 MG Tab PO SCH (20:32)
[2017-07-28] MEDS: ALPRAZolam 0.25 MG Tab PO PRN ×2 (01:56→15:09)
[2017-07-28] MEDS: Piperacillin/Tazobactam/Dext 3.375 GM in Premix Bag 1 BAG IV SCH ×4 (04:27→23:03)
[2017-07-28] MEDS: Arformoterol 15 MCG/2 ML Neb Soln INH SCH ×2 (06:56→21:04)
[2017-07-28] MEDS: Albuterol/Ipratropium 3.0-0.5 MG/3 ML Neb Soln NEB SCH ×2 (06:56→10:31)
[2017-07-28] MEDS: Budesonide 0.5 MG/2 ML Neb Susp INH SCH ×2 (06:56→21:04)
[2017-07-28] MEDS: predniSONE 20 MG Tab PO SCH ×2 (07:29→16:24)
[2017-07-28] MEDS: Pantoprazole 40 MG Tab.CR PO SCH (07:29)
[2017-07-28] MEDS: guaiFENesin 600 MG Tab.ER PO PRN (07:42)
[2017-07-28] MEDS: Enoxaparin 30 MG/0.3 ML Syringe SUBCUT SCH (08:27)
[2017-07-28] MEDS: Propranolol 60 MG Cap.ER PO SCH (08:27)
[2017-07-28] MEDS: Aspirin 81 MG Tab.EC PO SCH (08:27)
[2017-07-28] MEDS: Lisinopril 5 MG Tab PO SCH (08:29)
[2017-07-28] MEDS ORDERED: Levalbuterol HCl 1.25 MG/3 ML Neb NEB PRN (11:05)
[2017-07-28] MEDS: Benzocaine/Cetylpyridinium/Menthol Lozenge MUCMEM PRN (13:25)
[2017-07-28] MEDS: Benzonatate 100 MG Cap PO PRN (14:00)
--- NOTE | 2017-07-28 14:32 | PCM.PN ---
- General Info Date of Service: 07/28/17 Functional Status: Reports: Pain Controlled, Tolerating Diet - Review of Systems General: Reports: Weakness. Denies: Fever Pulmonary: Reports: Shortness of Breath, Cough Systems Review Comment:: No acute events overnight. Still feels weak and run down. Still short of breath and still coughing a fair amount. She has not had any fevers. Supplemental oxygen requirement essentially stable. Not much of an appetite. Sputum culture growing some yeast but also a possible fungus which has been sent out. - Patient Data Vitals - Most Recent: Last Vital Signs Temp 35.3 C 07/28/17 11:00 Pulse 61 07/28/17 11:00 Resp 16 07/28/17 11:00 BP 175/70 H 07/28/17 11:00 Pulse Ox 100 07/28/17 11:00 Weight - Most Recent: 40.823 kg I&O - Last 24 Hours: Intake & Output 07/27/17 07/28/17 07/28/17 22:59 06:59 14:59 Intake Total 1719 1285 524 Output Total 950 1400 1340 Balance 769 -115 -816 Lab Results Last 24 Hours: Laboratory Results - last 24 hr 07/28/17 07/28/17 Range/Units 06:01 06:01 WBC 14.1 H (4.5-11.0) K/uL RBC 3.50 (3.30-5.50) M/uL Hgb 10.6 L (12.0-15.0) g/dL Hct 32.4 L (36.0-48.0) % MCV 93 (80-98) fL MCH 30 (27-31) pg MCHC 33 (32-36) % Plt Count 366 (150-400) K/uL Sodium 132 L (140-148) mmol/L Potassium 4.0 (3.6-5.2) mmol/L Chloride 96 L (100-108) mmol/L Carbon Dioxide 31 (21-32) mmol/L Anion Gap 9.0 (5.0-14.0) mmol/L BUN 16 (7-18) mg/dL Creatinine 0.9 (0.6-1.0) mg/dL Est Cr Clr Drug Dosing 28.38 mL/min Estimated GFR (MDRD) 59 L (>60) Glucose 94 (74-106) mg/dL Calcium 8.3 L (8.5-10.1) mg/dL [facility]o Results Last 24 Hours: Microbiology 07/25/17 18:19 Gram Stain - Final Sputum - Expectorated Respiratory Culture - Preliminary YEAST Med Orders - Current: Current Medications Acetaminophen (Tylenol) 650 mg PO Q4H PRN PRN Reason: Pain (Mild 1-3)/fever Last Admin: 07/27/17 21:01 Dose: 650 mg Alprazolam (Xanax) 0.5 - 1 mg PO Q4H PRN PRN Reason: Anxiety Last Admin: 07/28/17 01:56 Dose: 1 mg Arformoterol Tartrate (Brovana) 15 mcg INH BIDRT [facility] Last Admin: 07/28/17 06:56 Dose: 15 mcg Aspirin (Halfprin) 81 mg PO DAILY [facility] Last Admin: 07/28/17 08:27 Dose: 81 mg Benzocaine/Menthol (Cepacol Sore Throat) 1 lozenge MUCMEM ASDIRECTED PRN PRN Reason: sore throat Last Admin: 07/28/17 13:25 Dose: 1 sheba Benzonatate (Tessalon Perles) 100 mg PO TID PRN PRN Reason: Cough Last Admin: 07/28/17 14:00 Dose: 100 mg Budesonide (Pulmicort) 0.5 mg INH BIDRT [facility] Last Admin: 07/28/17 06:56 Dose: 0.5 mg Citalopram Hydrobromide (Celexa) 10 mg PO BEDTIME [facility] Last Admin: 07/27/17 20:32 Dose: 10 mg Docusate Sodium (Colace) 100 mg PO BID PRN PRN Reason: Constipation Last Admin: 07/27/17 10:48 Dose: 100 mg Enoxaparin Sodium (Lovenox) 30 mg SUBCUT DAILY [facility] Last Admin: 07/28/17 08:27 Dose: 30 mg Guaifenesin (Mucinex) 600 mg PO Q12H PRN PRN Reason: SECRETIONS Last Admin: 07/28/17 07:42 Dose: 600 mg Piperacillin/Tazobactam/ (Dextrose 3.375 gm/ Premix) 50 mls @ 100 mls/hr IV Q6H [facility] Last Admin: 07/28/17 11:02 Dose: 100 mls/hr Sodium Chloride (Normal Saline) 1,000 mls @ 25 mls/hr IV ASDIRECTED [facility] Last Admin: 07/27/17 21:30 Dose: 25 mls/hr Ibuprofen (Motrin) 600 mg PO Q6H PRN PRN Reason: Pain/Fever Last Admin: 07/26/17 17:32 Dose: 600 mg Levalbuterol HCl (Xopenex) 1.25 mg NEB Q4H PRN PRN Reason: Shortness of Breath Levalbuterol HCl (Xopenex) 1.25 mg NEB QIDRT [facility] Lisinopril (Prinivil) 5 mg PO DAILY [facility] Last Admin: 07/28/17 08:29 Dose: 5 mg Magnesium Hydroxide (Milk Of Magnesia) 30 ml PO BID PRN PRN Reason: Constipation Ondansetron HCl (Zofran Odt) 4 mg PO Q6H PRN PRN Reason: Nausea able to take PO Last Admin: 07/25/17 17:06 Dose: 4 mg Ondansetron HCl (Zofran) 4 mg IV Q6H PRN PRN Reason: Nausea/Vomiting Last Admin: 07/27/17 15:17 Dose: 4 mg Oxycodone HCl (Oxycodone) 5 - 10 mg PO Q4H PRN PRN Reason: Pain Last Admin: 07/27/17 20:31 Dose: 5 mg Pantoprazole Sodium (Protonix) 40 mg PO ACBREAKFAST [facility] Last Admin: 07/28/17 07:29 Dose: 40 mg Polyethylene Glycol (Miralax) 17 gm PO BEDTIME PRN PRN Reason: Constipation Last Admin: 07/27/17 20:42 Dose: 17 gm Prednisone (Prednisone) 20 mg PO BIDAC [facility] Last Admin: 07/28/17 07:29 Dose: 20 mg Propranolol HCl (Inderal La) 60 mg PO DAILY [facility] Last Admin: 07/28/17 08:27 Dose: 60 mg Simvastatin (Zocor) 20 mg PO BEDTIME [facility] Last Admin: 07/27/17 20:32 Dose: 20 mg Discontinued Medications Albuterol (Proventil Neb Soln) 2.5 mg NEB Q4H PRN PRN Reason: Shortness Of Breath/wheezing Albuterol/Ipratropium (Duoneb 3.0-0.5 Mg/3 Ml) 3 ml NEB ONETIME ONE Stop: 07/25/17 09:33 Last Admin: 07/25/17 09:47 Dose: 3 ml Albuterol/Ipratropium (Duoneb 3.0-0.5 Mg/3 Ml) 3 ml NEB QIDRT [facility] Last Admin: 07/28/17 10:31 Dose: 3 ml Alprazolam (Xanax) 0.25 mg PO BID [facility] Last Admin: 07/26/17 20:06 Dose: 0.25 mg Alprazolam (Xanax) 0.25 mg PO Q6H PRN PRN Reason: Anxiety Last Admin: 07/25/17 17:12 Dose: 0.25 mg Enoxaparin Sodium (Lovenox) 40 mg SUBCUT DAILY [facility] Last Admin: 07/27/17 08:52 Dose: 40 mg Lactated Ringer's (Ringers, Lactated) 1,000 mls @ 999 mls/hr IV ASDIRECTED [facility] Last Admin: 07/25/17 10:10 Dose: 999 mls/hr Piperacillin/Tazobactam/ (Dextrose 4.5 gm/ Premix) 100 mls @ 200 mls/hr IV Q6H [facility] Last Admin: 07/25/17 10:10 Dose: 200 mls/hr Potassium Chloride 20 meq/Lidocaine HCl 2 ml/ Sodium Chloride 112 mls @ 56 mls/ hr IV Q2H [facility] Stop: 07/25/17 14:59 Last Admin: 07/25/17 14:44 Dose: 56 mls/hr Levofloxacin/Dextrose 750 mg/ (Premix) 150 mls @ 100 mls/hr IV ONETIME ONE Stop: 07/25/17 13:14 Last Admin: 07/25/17 13:18 Dose: 100 mls/hr Sodium Chloride (Normal Saline) 1,000 mls @ 125 mls/hr IV ASDIRECTED [facility] Last Admin: 07/26/17 06:03 Dose: 125 mls/hr Potassium Chloride 20 meq/Lidocaine HCl 2 ml/ Sodium Chloride 112 mls @ 56 mls/ hr IV Q2H [facility] Stop: 07/25/17 20:59 Last Admin: 07/25/17 20:39 Dose: 56 mls/hr Levofloxacin/Dextrose 750 mg/ (Premix) 150 mls @ 100 mls/hr IV Q48H [facility] Last Admin: 07/27/17 12:44 Dose: 100 mls/hr Sodium Chloride (Normal Saline) 1,000 mls @ 75 mls/hr IV ASDIRECTED [facility] Last Admin: 07/27/17 07:49 Dose: 75 mls/hr Methylprednisolone Sodium Succinate (Solu-Medrol) 125 mg IVPUSH ONETIME ONE Stop: 07/25/17 10:45 Last Admin: 07/25/17 11:07 Dose: 125 mg Methylprednisolone Sodium Succinate (Solu-Medrol) 62.5 mg IVPUSH Q8H [facility] Last Admin: 07/27/17 04:52 Dose: 62.5 mg Ondansetron HCl (Zofran) 4 mg IVPUSH ONETIME ONE Stop: 07/25/17 10:56 Last Admin: 07/25/17 11:07 Dose: 4 mg Potassium Chloride (Klor-Con M20) 40 meq PO ONETIME ONE Stop: 07/25/17 10:29 Last Admin: 07/25/17 10:50 Dose: 40 meq - Exam Quality Assessment: Supplemental Oxygen General: Alert, Oriented, Cooperative, No Acute Distress, Other (looks tired) Neck: Supple Lungs: Crackles (rare at bases). No: Normal Respiratory Effort (increased work of breathing ), Wheezing Cardiovascular: Regular Rate, Regular Rhythm GI/Abdominal Exam: Normal Bowel Sounds, Soft, No Distention Extremities: Pedal Edema Psy/Mental Status: Alert, Normal Affect - Problem List & Annotations (1) Acute bronchitis SNOMED Code(s): 18575849 Code(s): J20.9 - ACUTE BRONCHITIS, UNSPECIFIED Status: Acute Current Visit: Yes Qualifiers: Bronchitis organism: unspecified organism Qualified Code(s): J20.9 - Acute bronchitis, unspecified (2) COPD exacerbation SNOMED Code(s): 762313316383192 Code(s): J44.1 - CHRONIC OBSTRUCTIVE PULMONARY DISEASE W (ACUTE) EXACERBATION Status: Acute Current Visit: Yes (3) Chronic respiratory failure with hypoxia Status: Chronic Current Visit: Yes (4) 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 SNOMED Code(s): 47424140752797347 Code(s): I87.2 - VENOUS INSUFFICIENCY (CHRONIC) (PERIPHERAL); R60.9 - EDEMA, UNSPECIFIED Status: Chronic Priority: Medium Current Visit: No - Problem List Review Problem List Initiated/Reviewed/Updated: Yes - My Orders Last 24 Hours: My Active Orders 07/27/17 16:30 predniSONE 20 mg PO BIDAC 07/27/17 18:10 Polyethylene Glycol 3350 [MiraLAX] 17 gm PO BEDTIME PRN 07/28/17 09:00 Enoxaparin [Lovenox] 30 mg SUBCUT DAILY 07/28/17 11:05 RT Aerosol Therapy [RC] ASDIRECTED Levalbuterol HCl [Xopenex] 1.25 mg NEB Q4H PRN 07/28/17 14:30 Fluconazole/Normal Saline [Diflucan in NS 200 MG/100 ML] 200 mg Premix Bag 1 bag IV Q24H 07/28/17 15:00 Levalbuterol HCl [Xopenex] 1.25 mg NEB QIDRT 07/28/17 21:00 Doxycycline [Vibramycin] 100 mg Sodium Chloride 0.9% [Normal Saline] 100 ml IV Q12HR 07/29/17 05:00 BASIC METABOLIC PANEL,BMP [CHEM] Timed CBC W/O DIFF,HEMOGRAM [HEME] Timed (1) - Plan Plan:: ASSESSMENT AND PLAN - Acute bronchitis with COPD exacerbation - clinically stable but not much improved. Sputum culture with germ to positive yeast and possible fungus which has been sent out for identification. Had been improving with only antibacterial coverage. -Continue Pip/Tazo -discontinue levofloxacin, start doxycycline -Start fluconazole -Continue prednisone -Supplement oxygen -Scheduled and as needed nebulizers -Probiotics -Follow-up fungus identification Hypoxic respiratory failure - acute on chronic. Secondary to acute infection and COPD exacerbation as above. -Management as above Chronic lower extremity edema - suspect venous insufficiency. No edema at this time. -Restart diuretics tomorrow Essential hypertension - blood pressure has been stable. Maintenance issues - - DVT prophylaxis - enoxaparin - GI prophylaxis - PPI - Nutrition - regular diet as tolerated Disposition - anticipate discharge back to the detention after the hospital stay Torres Galvez M.D.
[2017-07-28] MEDS: Levalbuterol HCl 1.25 MG/3 ML Neb NEB SCH ×2 (14:40→21:04)
[2017-07-28] MEDS: Acetaminophen 325 MG Tab PO PRN (15:09)
[2017-07-28] MEDS: Fluconazole/Normal Saline 200 MG in Premix Bag 1 BAG IV SCH (15:13)
[2017-07-28] MEDS: oxyCODONE 5 MG Tab PO PRN ×2 (19:03→23:02)
[2017-07-28] MEDS: Doxycycline 100 MG in Sodium Chloride 0.9% 100 ML IV SCH (20:41)
[2017-07-28] MEDS: ALPRAZolam 0.5 MG Tab PO PRN (20:51)
[2017-07-28] MEDS: Citalopram 10 MG Tab PO SCH (20:51)
[2017-07-28] MEDS: Simvastatin 20 MG Tab PO SCH (20:51)
[2017-07-29] MEDS: Piperacillin/Tazobactam/Dext 3.375 GM in Premix Bag 1 BAG IV SCH ×4 (04:10→22:23)
[2017-07-29] MEDS: Budesonide 0.5 MG/2 ML Neb Susp INH SCH ×2 (07:35→20:46)
[2017-07-29] MEDS: Levalbuterol HCl 1.25 MG/3 ML Neb NEB SCH ×4 (07:35→20:46)
[2017-07-29] MEDS: Arformoterol 15 MCG/2 ML Neb Soln INH SCH ×2 (07:36→21:07)
[2017-07-29] MEDS: Pantoprazole 40 MG Tab.CR PO SCH (08:09)
[2017-07-29] MEDS: Doxycycline 100 MG in Sodium Chloride 0.9% 100 ML IV SCH ×2 (08:12→20:46)
[2017-07-29] MEDS: predniSONE 20 MG Tab PO SCH ×2 (08:21→17:51)
[2017-07-29] MEDS: Furosemide 40 MG Tab PO SCH (08:21)
[2017-07-29] MEDS: Aspirin 81 MG Tab.EC PO SCH (08:21)
[2017-07-29] MEDS: Enoxaparin 30 MG/0.3 ML Syringe SUBCUT SCH (08:21)
[2017-07-29] MEDS: Propranolol 60 MG Cap.ER PO SCH (08:22)
[2017-07-29] MEDS: Lisinopril 5 MG Tab PO SCH (08:22)
[2017-07-29] MEDS: Ondansetron 4 MG Tab.DIS PO PRN ×2 (09:45→18:56)
[2017-07-29] MEDS: ALPRAZolam 0.5 MG Tab PO PRN ×2 (11:02→22:23)
--- NOTE | 2017-07-29 13:22 | PCM.PN ---
- General Info Date of Service: 07/29/17 Subjective Update: Ms. Valdez has had ongoing difficulty with shortness of breath and cough, seems to plateau to over the past few days with no significant improvement during that time. Yesterday was started on will consult for possible underlying fungal versus yeast infection. Vital signs have remained stable and she has been afebrile. Functional Status: Reports: Tolerating Diet, Urinating - Review of Systems General: Reports: Weakness. Denies: Fever, Chills Pulmonary: Reports: Shortness of Breath, Cough, Wheezing. Denies: Pleuritic Chest Pain, Sputum, Hemoptysis Cardiovascular: Reports: Dyspnea on Exertion, Edema. Denies: Chest Pain, Palpitations, Orthopnea, PND Gastrointestinal: Reports: No Symptoms - Patient Data Vitals - Most Recent: Last Vital Signs Temp 95.2 F L 07/29/17 11:03 Pulse 62 07/29/17 11:03 Resp 22 H 07/29/17 11:03 BP 183/81 H 07/29/17 11:03 Pulse Ox 89 L 07/29/17 11:03 Weight - Most Recent: 89 lb 15.989 oz I&O - Last 24 Hours: Intake & Output 07/28/17 07/29/17 07/29/17 22:59 06:59 14:59 Intake Total 1027 333 990 Output Total 4015 688 5545 Balance -173 -67 -660 Lab Results Last 24 Hours: Laboratory Results - last 24 hr 07/29/17 07/29/17 Range/Units 05:00 05:00 WBC 13.9 H (4.5-11.0) K/uL RBC 2.37 L (3.30-5.50) M/uL Hgb 11.2 L (12.0-15.0) g/dL Hct 22.1 L (36.0-48.0) % MCV 93 (80-98) fL MCH 47 H (27-31) pg MCHC 51 H (32-36) % Plt Count 240 (150-400) K/uL Sodium 134 L (140-148) mmol/L Potassium 4.2 (3.6-5.2) mmol/L Chloride 97 L (100-108) mmol/L Carbon Dioxide 32 (21-32) mmol/L Anion Gap 9.2 (5.0-14.0) mmol/L BUN 17 (7-18) mg/dL Creatinine 0.9 (0.6-1.0) mg/dL Est Cr Clr Drug Dosing 28.38 mL/min Estimated GFR (MDRD) 59 L (>60) Glucose 108 H (74-106) mg/dL Calcium 8.6 (8.5-10.1) mg/dL Med Orders - Current: Current Medications Acetaminophen (Tylenol) 650 mg PO Q4H PRN PRN Reason: Pain (Mild 1-3)/fever Last Admin: 07/28/17 15:09 Dose: 650 mg Alprazolam (Xanax) 0.5 - 1 mg PO Q4H PRN PRN Reason: Anxiety Last Admin: 07/29/17 11:02 Dose: 1 mg Arformoterol Tartrate (Brovana) 15 mcg INH BIDRT [facility] Last Admin: 07/29/17 07:36 Dose: 15 mcg Aspirin (Halfprin) 81 mg PO DAILY [facility] Last Admin: 07/29/17 08:21 Dose: 81 mg Benzocaine/Menthol (Cepacol Sore Throat) 1 lozenge MUCMEM ASDIRECTED PRN PRN Reason: sore throat Last Admin: 07/28/17 13:25 Dose: 1 sheba Benzonatate (Tessalon Perles) 100 mg PO TID PRN PRN Reason: Cough Last Admin: 07/28/17 14:00 Dose: 100 mg Budesonide (Pulmicort) 0.5 mg INH BIDRT [facility] Last Admin: 07/29/17 07:35 Dose: 0.5 mg Citalopram Hydrobromide (Celexa) 10 mg PO BEDTIME [facility] Last Admin: 07/28/17 20:51 Dose: 10 mg Docusate Sodium (Colace) 100 mg PO BID PRN PRN Reason: Constipation Last Admin: 07/27/17 10:48 Dose: 100 mg Enoxaparin Sodium (Lovenox) 30 mg SUBCUT DAILY [facility] Last Admin: 07/29/17 08:21 Dose: 30 mg Furosemide (Lasix) 40 mg PO DAILY [facility] Last Admin: 07/29/17 08:21 Dose: 40 mg Guaifenesin (Mucinex) 600 mg PO Q12H PRN PRN Reason: SECRETIONS Last Admin: 07/28/17 07:42 Dose: 600 mg Piperacillin/Tazobactam/ (Dextrose 3.375 gm/ Premix) 50 mls @ 100 mls/hr IV Q6H [facility] Last Admin: 07/29/17 11:02 Dose: 100 mls/hr Sodium Chloride (Normal Saline) 1,000 mls @ 25 mls/hr IV ASDIRECTED [facility] Last Admin: 07/27/17 21:30 Dose: 25 mls/hr Doxycycline Hyclate 100 mg/ (Sodium Chloride) 100 mls @ 100 mls/hr IV Q12H [facility] Last Admin: 07/29/17 08:12 Dose: 100 mls/hr Fluconazole/Sodium Chloride (200 mg/ Premix) 100 mls @ 100 mls/hr IV Q24H [facility] Last Admin: 07/28/17 15:13 Dose: 100 mls/hr Ibuprofen (Motrin) 600 mg PO Q6H PRN PRN Reason: Pain/Fever Last Admin: 07/26/17 17:32 Dose: 600 mg Levalbuterol HCl (Xopenex) 1.25 mg NEB Q4H PRN PRN Reason: Shortness of Breath Levalbuterol HCl (Xopenex) 1.25 mg NEB QIDRT [facility] Last Admin: 07/29/17 10:54 Dose: 1.25 mg Lisinopril (Prinivil) 5 mg PO DAILY [facility] Last Admin: 07/29/17 08:22 Dose: 5 mg Magnesium Hydroxide (Milk Of Magnesia) 30 ml PO BID PRN PRN Reason: Constipation Ondansetron HCl (Zofran Odt) 4 mg PO Q6H PRN PRN Reason: Nausea able to take PO Last Admin: 07/29/17 09:45 Dose: 4 mg Ondansetron HCl (Zofran) 4 mg IV Q6H PRN PRN Reason: Nausea/Vomiting Last Admin: 07/27/17 15:17 Dose: 4 mg Oxycodone HCl (Oxycodone) 5 - 10 mg PO Q4H PRN PRN Reason: Pain Last Admin: 07/28/17 23:02 Dose: 5 mg Pantoprazole Sodium (Protonix) 40 mg PO ACBREAKFAST [facility] Last Admin: 07/29/17 08:09 Dose: 40 mg Polyethylene Glycol (Miralax) 17 gm PO BEDTIME PRN PRN Reason: Constipation Last Admin: 07/27/17 20:42 Dose: 17 gm Prednisone (Prednisone) 20 mg PO BIDAC [facility] Last Admin: 07/29/17 08:21 Dose: 20 mg Propranolol HCl (Inderal La) 60 mg PO DAILY [facility] Last Admin: 07/29/17 08:22 Dose: 60 mg Simvastatin (Zocor) 20 mg PO BEDTIME [facility] Last Admin: 07/28/17 20:51 Dose: 20 mg Discontinued Medications Albuterol (Proventil Neb Soln) 2.5 mg NEB Q4H PRN PRN Reason: Shortness Of Breath/wheezing Albuterol/Ipratropium (Duoneb 3.0-0.5 Mg/3 Ml) 3 ml NEB ONETIME ONE Stop: 07/25/17 09:33 Last Admin: 07/25/17 09:47 Dose: 3 ml Albuterol/Ipratropium (Duoneb 3.0-0.5 Mg/3 Ml) 3 ml NEB QIDRT [facility] Last Admin: 07/28/17 10:31 Dose: 3 ml Alprazolam (Xanax) 0.25 mg PO BID [facility] Last Admin: 07/26/17 20:06 Dose: 0.25 mg Alprazolam (Xanax) 0.25 mg PO Q6H PRN PRN Reason: Anxiety Last Admin: 07/25/17 17:12 Dose: 0.25 mg Alprazolam (Xanax) 0.5 - 1 mg PO Q4H PRN PRN Reason: Anxiety Last Admin: 07/28/17 15:09 Dose: 0.5 mg Enoxaparin Sodium (Lovenox) 40 mg SUBCUT DAILY [facility] Last Admin: 07/27/17 08:52 Dose: 40 mg Lactated Ringer's (Ringers, Lactated) 1,000 mls @ 999 mls/hr IV ASDIRECTED [facility] Last Admin: 07/25/17 10:10 Dose: 999 mls/hr Piperacillin/Tazobactam/ (Dextrose 4.5 gm/ Premix) 100 mls @ 200 mls/hr IV Q6H [facility] Last Admin: 07/25/17 10:10 Dose: 200 mls/hr Potassium Chloride 20 meq/Lidocaine HCl 2 ml/ Sodium Chloride 112 mls @ 56 mls/ hr IV Q2H [facility] Stop: 07/25/17 14:59 Last Admin: 07/25/17 14:44 Dose: 56 mls/hr Levofloxacin/Dextrose 750 mg/ (Premix) 150 mls @ 100 mls/hr IV ONETIME ONE Stop: 07/25/17 13:14 Last Admin: 07/25/17 13:18 Dose: 100 mls/hr Sodium Chloride (Normal Saline) 1,000 mls @ 125 mls/hr IV ASDIRECTED [facility] Last Admin: 07/26/17 06:03 Dose: 125 mls/hr Potassium Chloride 20 meq/Lidocaine HCl 2 ml/ Sodium Chloride 112 mls @ 56 mls/ hr IV Q2H [facility] Stop: 07/25/17 20:59 Last Admin: 07/25/17 20:39 Dose: 56 mls/hr Levofloxacin/Dextrose 750 mg/ (Premix) 150 mls @ 100 mls/hr IV Q48H [facility] Last Admin: 07/27/17 12:44 Dose: 100 mls/hr Sodium Chloride (Normal Saline) 1,000 mls @ 75 mls/hr IV ASDIRECTED [facility] Last Admin: 07/27/17 07:49 Dose: 75 mls/hr Methylprednisolone Sodium Succinate (Solu-Medrol) 125 mg IVPUSH ONETIME ONE Stop: 07/25/17 10:45 Last Admin: 07/25/17 11:07 Dose: 125 mg Methylprednisolone Sodium Succinate (Solu-Medrol) 62.5 mg IVPUSH Q8H [facility] Last Admin: 07/27/17 04:52 Dose: 62.5 mg Ondansetron HCl (Zofran) 4 mg IVPUSH ONETIME ONE Stop: 07/25/17 10:56 Last Admin: 07/25/17 11:07 Dose: 4 mg Potassium Chloride (Klor-Con M20) 40 meq PO ONETIME ONE Stop: 07/25/17 10:29 Last Admin: 07/25/17 10:50 Dose: 40 meq - Exam Quality Assessment: Supplemental Oxygen, DVT Prophylaxis General: Alert, Oriented, Cooperative, Moderate Distress Lungs: Decreased Breath Sounds, Rhonchi, Wheezing. No: Crackles, Rales, Rub, Stridor Cardiovascular: Regular Rate, Regular Rhythm, No Murmurs GI/Abdominal Exam: Soft, Non-Tender, No Organomegaly, No Distention Extremities: Non-Tender, Pedal Edema Skin: Warm, Dry, Intact - Problem List Review Problem List Initiated/Reviewed/Updated: Yes - My Orders Last 24 Hours: My Active Orders 07/30/17 05:00 BASIC METABOLIC PANEL,BMP [CHEM] Timed CBC WITH AUTO DIFF [HEME] Timed - Plan Plan:: ASSESSMENT AND PLAN - Acute bronchitis with COPD exacerbation - stable since yesterday but no significant improvement over the past few days. Continues to experience shortness of breath and nonproductive cough. -Continue Pip/Tazo and doxycycline -Continue fluconazole -Continue prednisone -Supplement oxygen -Scheduled and as needed nebulizers -Probiotics -Follow-up fungus identification Hypoxic respiratory failure - acute on chronic. Secondary to acute infection and COPD exacerbation as above. -Management as above Chronic lower extremity edema - has mild to moderate bilateral lower extremity edema -Continue diuretic therapy Essential hypertension - blood pressure has been stable. Maintenance issues - - DVT prophylaxis - enoxaparin - GI prophylaxis - PPI - Nutrition - regular diet as tolerated Disposition - anticipate discharge back to the longterm after the hospital stay
[2017-07-29] MEDS: Fluconazole/Normal Saline 200 MG in Premix Bag 1 BAG IV SCH (15:45)
[2017-07-29] MEDS ORDERED: Lisinopril 5 MG Tab PO ONE (17:15)
[2017-07-29] MEDS: Acetaminophen 325 MG Tab PO PRN (17:55)
[2017-07-29] MEDS: Benzonatate 100 MG Cap PO PRN (17:55)
[2017-07-29] MEDS: Citalopram 10 MG Tab PO SCH (20:52)
[2017-07-29] MEDS: Simvastatin 20 MG Tab PO SCH (20:52)
[2017-07-30] MEDS: Piperacillin/Tazobactam/Dext 3.375 GM in Premix Bag 1 BAG IV SCH ×4 (04:29→23:20)
[2017-07-30] MEDS: ALPRAZolam 0.5 MG Tab PO PRN ×2 (04:30→10:14)
[2017-07-30] MEDS: guaiFENesin 600 MG Tab.ER PO PRN ×2 (04:38→19:29)
[2017-07-30] MEDS: Budesonide 0.5 MG/2 ML Neb Susp INH SCH ×2 (07:12→22:07)
[2017-07-30] MEDS: Levalbuterol HCl 1.25 MG/3 ML Neb NEB SCH ×4 (07:12→22:07)
[2017-07-30] MEDS: Arformoterol 15 MCG/2 ML Neb Soln INH SCH ×2 (07:12→21:47)
[2017-07-30] MEDS: Pantoprazole 40 MG Tab.CR PO SCH (08:09)
[2017-07-30] MEDS: predniSONE 20 MG Tab PO SCH (08:10)
[2017-07-30] MEDS: Enoxaparin 30 MG/0.3 ML Syringe SUBCUT SCH (08:10)
[2017-07-30] MEDS: Aspirin 81 MG Tab.EC PO SCH (08:11)
[2017-07-30] MEDS: Propranolol 60 MG Cap.ER PO SCH (08:11)
[2017-07-30] MEDS: Lisinopril 5 MG Tab PO SCH (08:11)
[2017-07-30] MEDS: Furosemide 40 MG Tab PO SCH (08:12)
[2017-07-30] MEDS: Doxycycline 100 MG in Sodium Chloride 0.9% 100 ML IV SCH ×2 (08:16→21:49)
[2017-07-30] MEDS ORDERED: Lisinopril 5 MG Tab PO ONE (09:30)
[2017-07-30] MEDS: Ondansetron 4 MG Tab.DIS PO PRN ×2 (10:51→19:29)
[2017-07-30] MEDS: Benzonatate 100 MG Cap PO PRN (10:52)
[2017-07-30] MEDS: Fluconazole/Normal Saline 200 MG in Premix Bag 1 BAG IV SCH (14:55)
--- NOTE | 2017-07-30 17:01 | PCM.PN ---
- General Info Date of Service: 07/30/17 Subjective Update: Ms. Valdez has been more sleepy and tired through the day today. Respiratory status seems to improved with less shortness of breath and cough. White blood cell count has shown further improvement over the last 24 hours. Vital signs have been stable and she has remained afebrile. - Review of Systems General: Reports: Weakness. Denies: Fever, Chills Pulmonary: Reports: Shortness of Breath, Cough, Wheezing. Denies: Pleuritic Chest Pain, Sputum, Hemoptysis Cardiovascular: Reports: Dyspnea on Exertion, Edema. Denies: Chest Pain, Palpitations, Orthopnea, PND, Lightheadedness Gastrointestinal: Reports: No Symptoms Genitourinary: Reports: No Symptoms - Patient Data Vitals - Most Recent: Last Vital Signs Temp 96.6 F 07/30/17 13:23 Pulse 56 L 07/30/17 14:49 Resp 20 07/30/17 13:23 BP 179/87 H 07/30/17 13:23 Pulse Ox 100 07/30/17 13:23 Weight - Most Recent: 89 lb 15.989 oz I&O - Last 24 Hours: Intake & Output 07/30/17 07/30/17 07/30/17 06:59 14:59 22:59 Intake Total 450 550 Output Total 200 1400 600 Balance 250 -850 -600 Lab Results Last 24 Hours: Laboratory Results - last 24 hr 07/30/17 07/30/17 Range/Units 05:00 05:00 WBC 11.6 H (4.5-11.0) K/uL RBC 3.64 (3.30-5.50) M/uL Hgb 11.0 L (12.0-15.0) g/dL Hct 34.0 L (36.0-48.0) % MCV 93 (80-98) fL MCH 30 (27-31) pg MCHC 32 (32-36) % Plt Count 346 (150-400) K/uL Neut % (Auto) 86 H (36-66) % Lymph % (Auto) 9 L (24-44) % Caroline % (Auto) 5 (2-6) % Eos % (Auto) 0 L (2-4) % Baso % (Auto) 0 (0-1) % Sodium 136 L (140-148) mmol/L Potassium 3.6 (3.6-5.2) mmol/L Chloride 95 L (100-108) mmol/L Carbon Dioxide 37 H (21-32) mmol/L Anion Gap 7.6 (5.0-14.0) mmol/L BUN 22 H (7-18) mg/dL Creatinine 1.0 (0.6-1.0) mg/dL Est Cr Clr Drug Dosing 25.54 mL/min Estimated GFR (MDRD) 52 L (>60) Glucose 128 H (74-106) mg/dL Calcium 8.2 L (8.5-10.1) mg/dL [facility]o Results Last 24 Hours: Microbiology 07/25/17 18:19 Gram Stain - Final Sputum - Expectorated Respiratory Culture - Final YEAST 07/29/17 22:31 Clostridium difficile (PCR) - Final Stool / Feces NEGATIVE CDIFF TOXIN Med Orders - Current: Current Medications Acetaminophen (Tylenol) 650 mg PO Q4H PRN PRN Reason: Pain (Mild 1-3)/fever Last Admin: 07/29/17 17:55 Dose: 650 mg Alprazolam (Xanax) 0.5 - 1 mg PO Q4H PRN PRN Reason: Anxiety Last Admin: 07/30/17 10:14 Dose: 1 mg Arformoterol Tartrate (Brovana) 15 mcg INH BIDRT [facility] Last Admin: 07/30/17 07:12 Dose: 15 mcg Aspirin (Halfprin) 81 mg PO DAILY [facility] Last Admin: 07/30/17 08:11 Dose: 81 mg Benzocaine/Menthol (Cepacol Sore Throat) 1 lozenge MUCMEM ASDIRECTED PRN PRN Reason: sore throat Last Admin: 07/28/17 13:25 Dose: 1 sheba Benzonatate (Tessalon Perles) 100 mg PO TID PRN PRN Reason: Cough Last Admin: 07/30/17 10:52 Dose: 100 mg Budesonide (Pulmicort) 0.5 mg INH BIDRT [facility] Last Admin: 07/30/17 07:12 Dose: 0.5 mg Citalopram Hydrobromide (Celexa) 10 mg PO BEDTIME [facility] Last Admin: 07/29/17 20:52 Dose: 10 mg Docusate Sodium (Colace) 100 mg PO BID PRN PRN Reason: Constipation Last Admin: 07/27/17 10:48 Dose: 100 mg Enoxaparin Sodium (Lovenox) 30 mg SUBCUT DAILY [facility] Last Admin: 07/30/17 08:10 Dose: 30 mg Furosemide (Lasix) 40 mg PO DAILY [facility] Last Admin: 07/30/17 08:12 Dose: 40 mg Guaifenesin (Mucinex) 600 mg PO Q12H PRN PRN Reason: SECRETIONS Last Admin: 07/30/17 04:38 Dose: 600 mg Piperacillin/Tazobactam/ (Dextrose 3.375 gm/ Premix) 50 mls @ 100 mls/hr IV Q6H [facility] Last Admin: 07/30/17 11:44 Dose: 100 mls/hr Doxycycline Hyclate 100 mg/ (Sodium Chloride) 100 mls @ 100 mls/hr IV Q12H [facility] Last Admin: 07/30/17 08:16 Dose: 100 mls/hr Fluconazole/Sodium Chloride (200 mg/ Premix) 100 mls @ 100 mls/hr IV Q24H [facility] Last Admin: 07/30/17 14:55 Dose: 100 mls/hr Lactobacillus Rhamnosus (Culturelle) 2 cap PO BID [facility] Levalbuterol HCl (Xopenex) 1.25 mg NEB Q4H PRN PRN Reason: Shortness of Breath Levalbuterol HCl (Xopenex) 1.25 mg NEB QIDRT [facility] Last Admin: 07/30/17 14:48 Dose: 1.25 mg Lisinopril (Prinivil) 10 mg PO BID [facility] Magnesium Hydroxide (Milk Of Magnesia) 30 ml PO BID PRN PRN Reason: Constipation Ondansetron HCl (Zofran Odt) 4 mg PO Q6H PRN PRN Reason: Nausea able to take PO Last Admin: 07/30/17 10:51 Dose: 4 mg Ondansetron HCl (Zofran) 4 mg IV Q6H PRN PRN Reason: Nausea/Vomiting Last Admin: 07/27/17 15:17 Dose: 4 mg Oxycodone HCl (Oxycodone) 5 - 10 mg PO Q4H PRN PRN Reason: Pain Last Admin: 07/28/17 23:02 Dose: 5 mg Pantoprazole Sodium (Protonix) 40 mg PO ACBREAKFAST [facility] Last Admin: 07/30/17 08:09 Dose: 40 mg Polyethylene Glycol (Miralax) 17 gm PO BEDTIME PRN PRN Reason: Constipation Last Admin: 07/27/17 20:42 Dose: 17 gm Prednisone (Prednisone) 20 mg PO DAILY@0800 [facility] Propranolol HCl (Inderal La) 60 mg PO DAILY [facility] Last Admin: 07/30/17 08:11 Dose: 60 mg Simvastatin (Zocor) 20 mg PO BEDTIME [facility] Last Admin: 07/29/17 20:52 Dose: 20 mg Discontinued Medications Albuterol (Proventil Neb Soln) 2.5 mg NEB Q4H PRN PRN Reason: Shortness Of Breath/wheezing Albuterol/Ipratropium (Duoneb 3.0-0.5 Mg/3 Ml) 3 ml NEB ONETIME ONE Stop: 07/25/17 09:33 Last Admin: 07/25/17 09:47 Dose: 3 ml Albuterol/Ipratropium (Duoneb 3.0-0.5 Mg/3 Ml) 3 ml NEB QIDRT [facility] Last Admin: 07/28/17 10:31 Dose: 3 ml Alprazolam (Xanax) 0.25 mg PO BID [facility] Last Admin: 07/26/17 20:06 Dose: 0.25 mg Alprazolam (Xanax) 0.25 mg PO Q6H PRN PRN Reason: Anxiety Last Admin: 07/25/17 17:12 Dose: 0.25 mg Alprazolam (Xanax) 0.5 - 1 mg PO Q4H PRN PRN Reason: Anxiety Last Admin: 07/28/17 15:09 Dose: 0.5 mg Enoxaparin Sodium (Lovenox) 40 mg SUBCUT DAILY [facility] Last Admin: 07/27/17 08:52 Dose: 40 mg Lactated Ringer's (Ringers, Lactated) 1,000 mls @ 999 mls/hr IV ASDIRECTED [facility] Last Admin: 07/25/17 10:10 Dose: 999 mls/hr Piperacillin/Tazobactam/ (Dextrose 4.5 gm/ Premix) 100 mls @ 200 mls/hr IV Q6H [facility] Last Admin: 07/25/17 10:10 Dose: 200 mls/hr Potassium Chloride 20 meq/Lidocaine HCl 2 ml/ Sodium Chloride 112 mls @ 56 mls/ hr IV Q2H [facility] Stop: 07/25/17 14:59 Last Admin: 07/25/17 14:44 Dose: 56 mls/hr Levofloxacin/Dextrose 750 mg/ (Premix) 150 mls @ 100 mls/hr IV ONETIME ONE Stop: 07/25/17 13:14 Last Admin: 07/25/17 13:18 Dose: 100 mls/hr Sodium Chloride (Normal Saline) 1,000 mls @ 125 mls/hr IV ASDIRECTED [facility] Last Admin: 07/26/17 06:03 Dose: 125 mls/hr Potassium Chloride 20 meq/Lidocaine HCl 2 ml/ Sodium Chloride 112 mls @ 56 mls/ hr IV Q2H [facility] Stop: 07/25/17 20:59 Last Admin: 07/25/17 20:39 Dose: 56 mls/hr Levofloxacin/Dextrose 750 mg/ (Premix) 150 mls @ 100 mls/hr IV Q48H [facility] Last Admin: 07/27/17 12:44 Dose: 100 mls/hr Sodium Chloride (Normal Saline) 1,000 mls @ 75 mls/hr IV ASDIRECTED [facility] Last Admin: 07/27/17 07:49 Dose: 75 mls/hr Sodium Chloride (Normal Saline) 1,000 mls @ 25 mls/hr IV ASDIRECTED [facility] Last Admin: 07/27/17 21:30 Dose: 25 mls/hr Ibuprofen (Motrin) 600 mg PO Q6H PRN PRN Reason: Pain/Fever Last Admin: 07/26/17 17:32 Dose: 600 mg Lisinopril (Prinivil) 5 mg PO DAILY [facility] Last Admin: 07/30/17 08:11 Dose: 5 mg Lisinopril (Prinivil) 5 mg PO ONETIME ONE Stop: 07/29/17 17:16 Last Admin: 07/29/17 17:51 Dose: 5 mg Lisinopril (Prinivil) 5 mg PO ONETIME ONE Stop: 07/30/17 09:31 Last Admin: 07/30/17 10:14 Dose: 5 mg Lisinopril (Prinivil) 10 mg PO DAILY [facility] Methylprednisolone Sodium Succinate (Solu-Medrol) 125 mg IVPUSH ONETIME ONE Stop: 07/25/17 10:45 Last Admin: 07/25/17 11:07 Dose: 125 mg Methylprednisolone Sodium Succinate (Solu-Medrol) 62.5 mg IVPUSH Q8H [facility] Last Admin: 07/27/17 04:52 Dose: 62.5 mg Ondansetron HCl (Zofran) 4 mg IVPUSH ONETIME ONE Stop: 07/25/17 10:56 Last Admin: 07/25/17 11:07 Dose: 4 mg Potassium Chloride (Klor-Con M20) 40 meq PO ONETIME ONE Stop: 07/25/17 10:29 Last Admin: 07/25/17 10:50 Dose: 40 meq Prednisone (Prednisone) 20 mg PO BIDAC [facility] Last Admin: 07/30/17 08:10 Dose: 20 mg - Exam Quality Assessment: Supplemental Oxygen, DVT Prophylaxis General: Mild Distress, Lethargic Lungs: Decreased Breath Sounds, Wheezing. No: Crackles, Rales, Rhonchi, Rub, Stridor Cardiovascular: Regular Rate, Regular Rhythm, Murmurs GI/Abdominal Exam: Soft, Non-Tender, No Organomegaly, No Distention Extremities: Non-Tender, Pedal Edema Skin: Warm, Dry - Problem List Review Problem List Initiated/Reviewed/Updated: Yes - My Orders Last 24 Hours: My Active Orders 07/30/17 16:23 Convert IV to Saline Lock [OM.PC] Routine 07/30/17 16:30 Lactobacillus Rhamnosus GG [Culturelle] 2 cap PO BID 07/30/17 21:00 Lisinopril [Prinivil] 10 mg PO BID 07/31/17 05:00 BASIC METABOLIC PANEL,BMP [CHEM] Timed CBC WITH AUTO DIFF [HEME] Timed 07/31/17 08:00 predniSONE 20 mg PO DAILY@0800 - Plan Plan:: ASSESSMENT AND PLAN - Acute bronchitis with COPD exacerbation - modest improvement with shortness of breath and cough since yesterday, very sleepy and lethargic today -Continue Pip/Tazo and doxycycline -Continue fluconazole -Continue prednisone -Supplement oxygen -Scheduled and as needed nebulizers -Probiotics -Follow-up fungus identification Hypoxic respiratory failure - acute on chronic. Secondary to acute infection and COPD exacerbation as above. -Management as above Chronic lower extremity edema - has mild to moderate bilateral lower extremity edema -Continue diuretic therapy Essential hypertension - blood pressure has been stable. Maintenance issues - - DVT prophylaxis - enoxaparin - GI prophylaxis - PPI - Nutrition - regular diet as tolerated Disposition - anticipate discharge back to the halfway after the hospital stay
[2017-07-30] MEDS: Lactobacillus Rhamnosus GG (Probiotic) Cap PO SCH ×2 (17:25→21:48)
[2017-07-30] MEDS: Citalopram 10 MG Tab PO SCH (21:48)
[2017-07-30] MEDS: Lisinopril 10 MG Tab PO SCH (21:49)
[2017-07-30] MEDS: Simvastatin 20 MG Tab PO SCH (21:49)
[2017-07-31] MEDS: Piperacillin/Tazobactam/Dext 3.375 GM in Premix Bag 1 BAG IV SCH (04:18)
[2017-07-31] MEDS ORDERED: Potassium Chloride 100 ML IV ONE ×2 (06:10→08:15)
[2017-07-31] MEDS ORDERED: Lidocaine 1% 50 ML MDV INJECT SCH ×2 (06:15→08:15)
[2017-07-31] MEDS: ALPRAZolam 0.5 MG Tab PO PRN (06:21)
[2017-07-31] MEDS: Levalbuterol HCl 1.25 MG/3 ML Neb NEB SCH ×4 (07:15→21:57)
[2017-07-31] MEDS: Arformoterol 15 MCG/2 ML Neb Soln INH SCH ×2 (07:15→21:57)
[2017-07-31] MEDS: Budesonide 0.5 MG/2 ML Neb Susp INH SCH ×2 (07:15→21:57)
[2017-07-31] MEDS ORDERED: predniSONE 20 MG Tab PO SCH (08:00)
[2017-07-31] MEDS: Lactobacillus Rhamnosus GG (Probiotic) Cap PO SCH ×2 (08:15→21:56)
[2017-07-31] MEDS: Furosemide 40 MG Tab PO SCH (08:15)
[2017-07-31] MEDS: Aspirin 81 MG Tab.EC PO SCH (08:15)
[2017-07-31] MEDS: Propranolol 60 MG Cap.ER PO SCH (08:15)
[2017-07-31] MEDS: Lisinopril 10 MG Tab PO SCH ×2 (08:15→21:56)
[2017-07-31] MEDS: Pantoprazole 40 MG Tab.CR PO SCH (08:15)
[2017-07-31] MEDS: Enoxaparin 30 MG/0.3 ML Syringe SUBCUT SCH (08:16)
[2017-07-31] MEDS: Doxycycline 100 MG in Sodium Chloride 0.9% 100 ML IV SCH (08:30)
[2017-07-31] MEDS ORDERED: Lisinopril 10 MG Tab PO SCH (09:00)
[2017-07-31] MEDS ORDERED: Potassium Chloride 20 MEQ Tab.ER PO ONE ×2 (09:00→18:00)
[2017-07-31] MEDS: hydrALAZINE 10 MG Tab PO SCH ×2 (11:10→16:03)
--- NOTE | 2017-07-31 14:34 | PCM.PN ---
- General Info Date of Service: 07/31/17 Subjective Update: Ms. Valdez has remained very weak and fatigued, ongoing shortness of breath and nonproductive cough. She has had an excellent diuresis over the past 24 hours, unfortunately this has not resulted in significant improvement in her breathing. Blood pressure under better control with change in medication, she has been afebrile. White blood cell count increased likely secondary to previous glucocorticoid therapy. - Patient Data Vitals - Most Recent: Last Vital Signs Temp 96.8 F 07/31/17 10:36 Pulse 48 L 07/31/17 14:29 Resp 20 07/31/17 10:36 BP 163/67 H 07/31/17 10:36 Pulse Ox 94 L 07/31/17 10:36 Weight - Most Recent: 89 lb 15.989 oz I&O - Last 24 Hours: Intake & Output 07/30/17 07/31/17 07/31/17 22:59 06:59 14:59 Intake Total 300 795 360 Output Total 1700 2250 1700 Balance -1400 -1455 -1340 Lab Results Last 24 Hours: Laboratory Results - last 24 hr 07/31/17 07/31/17 Range/Units 05:42 05:42 WBC 17.0 H (4.5-11.0) K/uL RBC 3.71 (3.30-5.50) M/uL Hgb 11.4 L (12.0-15.0) g/dL Hct 35.0 L (36.0-48.0) % MCV 94 (80-98) fL MCH 31 (27-31) pg MCHC 33 (32-36) % Plt Count 364 (150-400) K/uL Neut % (Auto) 77 H (36-66) % Lymph % (Auto) 13 L (24-44) % Dade % (Auto) 9 H (2-6) % Eos % (Auto) 0 L (2-4) % Baso % (Auto) 0 (0-1) % Sodium 138 L (140-148) mmol/L Potassium 2.9 L* (3.6-5.2) mmol/L Chloride 93 L (100-108) mmol/L Carbon Dioxide 42 H (21-32) mmol/L Anion Gap 5.9 (5.0-14.0) mmol/L BUN 18 (7-18) mg/dL Creatinine 0.9 (0.6-1.0) mg/dL Est Cr Clr Drug Dosing 28.38 mL/min Estimated GFR (MDRD) 59 L (>60) Glucose 88 (74-106) mg/dL Calcium 8.5 (8.5-10.1) mg/dL [facility] Results Last 24 Hours: Microbiology 07/25/17 18:19 Specimen Source - Preliminary Sputum, Induced Fungus Mold Identification - Preliminary Med Orders - Current: Current Medications Acetaminophen (Tylenol) 650 mg PO Q4H PRN PRN Reason: Pain (Mild 1-3)/fever Last Admin: 07/29/17 17:55 Dose: 650 mg Alprazolam (Xanax) 0.5 - 1 mg PO Q4H PRN PRN Reason: Anxiety Last Admin: 07/31/17 06:21 Dose: 0.5 mg Arformoterol Tartrate (Brovana) 15 mcg INH BIDRT [facility] Last Admin: 07/31/17 07:15 Dose: 15 mcg Aspirin (Halfprin) 81 mg PO DAILY [facility] Last Admin: 07/31/17 08:15 Dose: 81 mg Benzocaine/Menthol (Cepacol Sore Throat) 1 lozenge MUCMEM ASDIRECTED PRN PRN Reason: sore throat Last Admin: 07/28/17 13:25 Dose: 1 sheba Benzonatate (Tessalon Perles) 100 mg PO TID PRN PRN Reason: Cough Last Admin: 07/30/17 10:52 Dose: 100 mg Budesonide (Pulmicort) 0.5 mg INH BIDRT [facility] Last Admin: 07/31/17 07:15 Dose: 0.5 mg Citalopram Hydrobromide (Celexa) 10 mg PO BEDTIME [facility] Last Admin: 07/30/17 21:48 Dose: 10 mg Docusate Sodium (Colace) 100 mg PO BID PRN PRN Reason: Constipation Last Admin: 07/27/17 10:48 Dose: 100 mg Enoxaparin Sodium (Lovenox) 30 mg SUBCUT DAILY [facility] Last Admin: 07/31/17 08:16 Dose: 30 mg Furosemide (Lasix) 40 mg PO DAILY [facility] Last Admin: 07/31/17 08:15 Dose: 40 mg Guaifenesin (Mucinex) 600 mg PO Q12H PRN PRN Reason: SECRETIONS Last Admin: 07/30/17 19:29 Dose: 600 mg Hydralazine HCl (Apresoline) 5 mg PO Q8H [facility] Last Admin: 07/31/17 11:10 Dose: 5 mg Lactobacillus Rhamnosus (Culturelle) 2 cap PO BID [facility] Last Admin: 07/31/17 08:15 Dose: 2 cap Levalbuterol HCl (Xopenex) 1.25 mg NEB Q4H PRN PRN Reason: Shortness of Breath Last Admin: 07/31/17 06:09 Dose: 1.25 mg Levalbuterol HCl (Xopenex) 1.25 mg NEB QIDRT [facility] Last Admin: 07/31/17 14:28 Dose: 1.25 mg Lidocaine HCl (Xylocaine 1%) 2 ml INJECT ASDIRECTED [facility] Lidocaine HCl (Xylocaine 1%) 2 ml INJECT ASDIRECTED [facility] Lisinopril (Prinivil) 10 mg PO BID [facility] Last Admin: 07/31/17 08:15 Dose: 10 mg Magnesium Hydroxide (Milk Of Magnesia) 30 ml PO BID PRN PRN Reason: Constipation Ondansetron HCl (Zofran Odt) 4 mg PO Q6H PRN PRN Reason: Nausea able to take PO Last Admin: 07/30/17 19:29 Dose: 4 mg Ondansetron HCl (Zofran) 4 mg IV Q6H PRN PRN Reason: Nausea/Vomiting Last Admin: 07/27/17 15:17 Dose: 4 mg Oxycodone HCl (Oxycodone) 5 - 10 mg PO Q4H PRN PRN Reason: Pain Last Admin: 07/28/17 23:02 Dose: 5 mg Pantoprazole Sodium (Protonix) 40 mg PO ACBREAKFAST [facility] Last Admin: 07/31/17 08:15 Dose: 40 mg Polyethylene Glycol (Miralax) 17 gm PO BEDTIME PRN PRN Reason: Constipation Last Admin: 07/27/17 20:42 Dose: 17 gm Potassium Chloride (Klor-Con M20) 40 meq PO ONETIME ONE Stop: 07/31/17 18:01 Propranolol HCl (Inderal La) 60 mg PO DAILY [facility] Last Admin: 07/31/17 08:15 Dose: 60 mg Simvastatin (Zocor) 20 mg PO BEDTIME [facility] Last Admin: 07/30/17 21:49 Dose: 20 mg Discontinued Medications Albuterol (Proventil Neb Soln) 2.5 mg NEB Q4H PRN PRN Reason: Shortness Of Breath/wheezing Albuterol/Ipratropium (Duoneb 3.0-0.5 Mg/3 Ml) 3 ml NEB ONETIME ONE Stop: 07/25/17 09:33 Last Admin: 07/25/17 09:47 Dose: 3 ml Albuterol/Ipratropium (Duoneb 3.0-0.5 Mg/3 Ml) 3 ml NEB QIDRT [facility] Last Admin: 07/28/17 10:31 Dose: 3 ml Alprazolam (Xanax) 0.25 mg PO BID [facility] Last Admin: 07/26/17 20:06 Dose: 0.25 mg Alprazolam (Xanax) 0.25 mg PO Q6H PRN PRN Reason: Anxiety Last Admin: 07/25/17 17:12 Dose: 0.25 mg Alprazolam (Xanax) 0.5 - 1 mg PO Q4H PRN PRN Reason: Anxiety Last Admin: 07/28/17 15:09 Dose: 0.5 mg Enoxaparin Sodium (Lovenox) 40 mg SUBCUT DAILY [facility] Last Admin: 07/27/17 08:52 Dose: 40 mg Lactated Ringer's (Ringers, Lactated) 1,000 mls @ 999 mls/hr IV ASDIRECTED [facility] Last Admin: 07/25/17 10:10 Dose: 999 mls/hr Piperacillin/Tazobactam/ (Dextrose 4.5 gm/ Premix) 100 mls @ 200 mls/hr IV Q6H [facility] Last Admin: 07/25/17 10:10 Dose: 200 mls/hr Potassium Chloride 20 meq/Lidocaine HCl 2 ml/ Sodium Chloride 112 mls @ 56 mls/ hr IV Q2H [facility] Stop: 07/25/17 14:59 Last Admin: 07/25/17 14:44 Dose: 56 mls/hr Levofloxacin/Dextrose 750 mg/ (Premix) 150 mls @ 100 mls/hr IV ONETIME ONE Stop: 07/25/17 13:14 Last Admin: 07/25/17 13:18 Dose: 100 mls/hr Sodium Chloride (Normal Saline) 1,000 mls @ 125 mls/hr IV ASDIRECTED [facility] Last Admin: 07/26/17 06:03 Dose: 125 mls/hr Piperacillin/Tazobactam/ (Dextrose 3.375 gm/ Premix) 50 mls @ 100 mls/hr IV Q6H [facility] Last Admin: 07/31/17 04:18 Dose: 100 mls/hr Potassium Chloride 20 meq/Lidocaine HCl 2 ml/ Sodium Chloride 112 mls @ 56 mls/ hr IV Q2H [facility] Stop: 07/25/17 20:59 Last Admin: 07/25/17 20:39 Dose: 56 mls/hr Levofloxacin/Dextrose 750 mg/ (Premix) 150 mls @ 100 mls/hr IV Q48H [facility] Last Admin: 07/27/17 12:44 Dose: 100 mls/hr Sodium Chloride (Normal Saline) 1,000 mls @ 75 mls/hr IV ASDIRECTED [facility] Last Admin: 07/27/17 07:49 Dose: 75 mls/hr Sodium Chloride (Normal Saline) 1,000 mls @ 25 mls/hr IV ASDIRECTED [facility] Last Admin: 07/27/17 21:30 Dose: 25 mls/hr Doxycycline Hyclate 100 mg/ (Sodium Chloride) 100 mls @ 100 mls/hr IV Q12H [facility] Last Admin: 07/31/17 08:30 Dose: 100 mls/hr Fluconazole/Sodium Chloride (200 mg/ Premix) 100 mls @ 100 mls/hr IV Q24H [facility] Last Admin: 07/30/17 14:55 Dose: 100 mls/hr Potassium Chloride (Kcl 20 Meq In Water 100 Ml) 100 mls @ 50 mls/hr IV .STK- MED ONE Stop: 07/31/17 08:09 Potassium Chloride (Kcl 20 Meq In Water 100 Ml) 100 mls @ 50 mls/hr IV .STK- MED ONE Stop: 07/31/17 10:14 Ibuprofen (Motrin) 600 mg PO Q6H PRN PRN Reason: Pain/Fever Last Admin: 07/26/17 17:32 Dose: 600 mg Lisinopril (Prinivil) 5 mg PO DAILY [facility] Last Admin: 07/30/17 08:11 Dose: 5 mg Lisinopril (Prinivil) 5 mg PO ONETIME ONE Stop: 07/29/17 17:16 Last Admin: 07/29/17 17:51 Dose: 5 mg Lisinopril (Prinivil) 5 mg PO ONETIME ONE Stop: 07/30/17 09:31 Last Admin: 07/30/17 10:14 Dose: 5 mg Lisinopril (Prinivil) 10 mg PO DAILY [facility] Methylprednisolone Sodium Succinate (Solu-Medrol) 125 mg IVPUSH ONETIME ONE Stop: 07/25/17 10:45 Last Admin: 07/25/17 11:07 Dose: 125 mg Methylprednisolone Sodium Succinate (Solu-Medrol) 62.5 mg IVPUSH Q8H [facility] Last Admin: 07/27/17 04:52 Dose: 62.5 mg Ondansetron HCl (Zofran) 4 mg IVPUSH ONETIME ONE Stop: 07/25/17 10:56 Last Admin: 07/25/17 11:07 Dose: 4 mg Potassium Chloride (Klor-Con M20) 40 meq PO ONETIME ONE Stop: 07/25/17 10:29 Last Admin: 07/25/17 10:50 Dose: 40 meq Potassium Chloride (Klor-Con M20) 40 meq PO ONETIME ONE Stop: 07/31/17 09:01 Last Admin: 07/31/17 11:10 Dose: 40 meq Prednisone (Prednisone) 20 mg PO BIDAC [facility] Last Admin: 07/30/17 08:10 Dose: 20 mg Prednisone (Prednisone) 20 mg PO DAILY@0800 [facility] Last Admin: 07/31/17 08:15 Dose: 20 mg - Exam General: Alert, Oriented, Cooperative, Mild Distress Lungs: Normal Respiratory Effort, Decreased Breath Sounds, Wheezing. No: Crackles, Rales, Rhonchi, Rub, Stridor Cardiovascular: Regular Rate, Regular Rhythm, No Murmurs GI/Abdominal Exam: Soft, Non-Tender, No Organomegaly, No Distention Extremities: Non-Tender, Pedal Edema Skin: Warm, Dry - Problem List Review Problem List Initiated/Reviewed/Updated: Yes - My Orders Last 24 Hours: My Active Orders 07/30/17 16:23 Convert IV to Saline Lock [OM.PC] Routine 07/30/17 16:30 Lactobacillus Rhamnosus GG [Culturelle] 2 cap PO BID 01/09/18 21:00 Lisinopril [Prinivil] 10 mg PO BID 07/31/17 06:15 Lidocaine 1% [Xylocaine 1%] 2 ml INJECT ASDIRECTED 07/31/17 08:15 Lidocaine 1% [Xylocaine 1%] 2 ml INJECT ASDIRECTED 07/31/17 09:00 hydrALAZINE [Apresoline] 5 mg PO Q8H 07/31/17 18:00 Potassium Chloride [Klor-Con M20] 40 meq PO ONETIME ONE 07/31/17 21:00 Doxycycline [Vibramycin] 100 mg PO BID 08/01/17 09:00 Fluconazole [Diflucan] 200 mg PO DAILY - Plan Plan:: ASSESSMENT AND PLAN - Acute bronchitis with COPD exacerbation - continued shortness of breath and nonproductive cough -Continue doxycycline -Continue fluconazole -Supplement oxygen -Scheduled and as needed nebulizers -Probiotics -Follow-up fungus identification Hypoxic respiratory failure - acute on chronic. Secondary to acute infection and COPD exacerbation as above. -Management as above Chronic lower extremity edema - good diuresis with resultant improvement in peripheral edema -Continue diuretic therapy Essential hypertension - blood pressure has been stable. Maintenance issues - - DVT prophylaxis - enoxaparin - GI prophylaxis - PPI - Nutrition - regular diet as tolerated Disposition - anticipate discharge back to the intermediate after the hospital stay
[2017-07-31] MEDS: Fluconazole 100 MG Tab PO SCH (16:03)
[2017-07-31] MEDS: Ondansetron 4 MG Tab.DIS PO PRN (17:52)
[2017-07-31] MEDS: Benzonatate 100 MG Cap PO PRN (18:31)
[2017-07-31] MEDS: Doxycycline 100 MG Cap PO SCH (21:56)
[2017-07-31] MEDS: Simvastatin 20 MG Tab PO SCH (21:57)
[2017-07-31] MEDS: Citalopram 10 MG Tab PO SCH (21:57)
[2017-08-01] MEDS: hydrALAZINE 10 MG Tab PO SCH ×4 (00:42→21:21)
[2017-08-01] MEDS: Benzonatate 100 MG Cap PO PRN (01:15)
[2017-08-01] MEDS: Budesonide 0.5 MG/2 ML Neb Susp INH SCH ×2 (07:16→21:20)
[2017-08-01] MEDS: Arformoterol 15 MCG/2 ML Neb Soln INH SCH ×2 (07:16→20:59)
[2017-08-01] MEDS: Levalbuterol HCl 1.25 MG/3 ML Neb NEB SCH ×4 (07:16→21:20)
[2017-08-01] MEDS: Ondansetron 4 MG/2 ML SDV IV PRN (07:46)
[2017-08-01] MEDS: Pantoprazole 40 MG Tab.CR PO SCH (07:54)
[2017-08-01] MEDS: Lactobacillus Rhamnosus GG (Probiotic) Cap PO SCH ×2 (08:10→20:58)
[2017-08-01] MEDS: Aspirin 81 MG Tab.EC PO SCH (08:10)
[2017-08-01] MEDS: Furosemide 40 MG Tab PO SCH (08:11)
[2017-08-01] MEDS: Doxycycline 100 MG Cap PO SCH ×2 (08:13→20:58)
[2017-08-01] MEDS: Lisinopril 10 MG Tab PO SCH ×2 (08:13→21:00)
[2017-08-01] MEDS: Enoxaparin 30 MG/0.3 ML Syringe SUBCUT SCH (08:14)
[2017-08-01] MEDS ORDERED: hydrALAZINE 10 MG Tab PO SCH (10:00)
[2017-08-01] MEDS ORDERED: hydrALAZINE 10 MG Tab PO ONE (10:00)
[2017-08-01] MEDS ORDERED: Potassium Chloride 20 MEQ Tab.ER PO ONE ×2 (10:00→16:00)
[2017-08-01] MEDS: Fluconazole 100 MG Tab PO SCH (10:23)
[2017-08-01] MEDS: Propranolol 60 MG Cap.ER PO SCH (10:24)
[2017-08-01] MEDS: ALPRAZolam 0.5 MG Tab PO PRN ×2 (10:25→17:14)
--- NOTE | 2017-08-01 11:26 | CR ---
Chest 1V Frontal HISTORY: Leukocytosis. COMPARISON: 07/25/2017 FINDINGS: Stable mild cardiomegaly. Old left-sided rib injuries. Deformity of the proximal left humer us unchanged probable small left-sided pleural effusion with blunting of the left costophrenic angle. There is some interstitial change at both lung bases could represent mild interstitial edema or infl ammatory process. No dense focal infiltrate.
--- NOTE | 2017-08-01 15:33 | PCM.PN ---
- General Info Date of Service: 08/01/17 Subjective Update: Ms. Valdez continues to experience symptoms of shortness of breath and significant weakness. She has had an excellent diuresis over the past few days and is down several liters and fluid but despite this has not noted any improvement in her dyspnea. Vital signs have been stable but her white count significantly elevated again today at 20,000. She has been afebrile and denies any other new symptoms that could explain the elevation in white blood cell count. Chest x-ray was obtained and shows no obvious infiltrates to explain the leukocytosis, urinalysis is clear with no evidence of infection. Final ID and sensitivities from fungus in sputum culture pending. - Review of Systems General: Reports: Weakness. Denies: Fever, Chills Pulmonary: Reports: Shortness of Breath. Denies: Pleuritic Chest Pain, Cough, Sputum, Hemoptysis, Wheezing Cardiovascular: Reports: Dyspnea on Exertion, Edema. Denies: Chest Pain, Palpitations, Orthopnea, PND, Lightheadedness Gastrointestinal: Reports: No Symptoms - Patient Data Vitals - Most Recent: Last Vital Signs Temp 97 F 08/01/17 11:26 Pulse 50 L 08/01/17 14:36 Resp 12 08/01/17 11:26 BP 167/69 H 08/01/17 11:26 Pulse Ox 98 08/01/17 11:26 Weight - Most Recent: 104 lb 4.458 oz I&O - Last 24 Hours: Intake & Output 08/01/17 08/01/17 08/01/17 06:59 14:59 22:59 Intake Total 200 Output Total 1725 1305 Balance -1725 -1105 Lab Results Last 24 Hours: Laboratory Results - last 24 hr 08/01/17 08/01/17 08/01/17 Range/Units 08:35 08:35 12:20 WBC 20.8 H (4.5-11.0) K/uL RBC 4.12 (3.30-5.50) M/uL Hgb 12.4 (12.0-15.0) g/dL Hct 38.4 (36.0-48.0) % MCV 93 (80-98) fL MCH 30 (27-31) pg MCHC 32 (32-36) % Plt Count 376 (150-400) K/uL Neut % (Auto) 79 H (36-66) % Lymph % (Auto) 12 L (24-44) % [place] % (Auto) 9 H (2-6) % Eos % (Auto) 1 L (2-4) % Baso % (Auto) 0 (0-1) % Sodium 133 L (140-148) mmol/L Potassium 3.5 L (3.6-5.2) mmol/L Chloride 88 L (100-108) mmol/L Carbon Dioxide 41 H (21-32) mmol/L Anion Gap 7.5 (5.0-14.0) mmol/L BUN 16 (7-18) mg/dL Creatinine 0.8 (0.6-1.0) mg/dL Est Cr Clr Drug Dosing 31.93 mL/min Estimated GFR (MDRD) > 60 (>60) Glucose 113 H (74-106) mg/dL Calcium 8.8 (8.5-10.1) mg/dL Urine Color Yellow Urine Appearance Slightly cloudy Urine pH 8.0 (4.5-8.0) Ur Specific [place] 1.010 (1.008-1.030) Urine Protein Negative (NEGATIVE) mg/dL Urine Glucose (UA) Normal (NEGATIVE) mg/dL Urine Ketones Negative (NEGATIVE) mg/dL Urine Occult Blood Negative (NEGATIVE) Urine Nitrite Negative (NEGATIVE) Urine Bilirubin Negative (NEGATIVE) Urine Urobilinogen Normal (NORMAL) mg/dL Ur Leukocyte Esterase Negative (NEGATIVE) Urine RBC Not seen (0-5) Urine WBC 0-5 (0-5) Ur Epithelial Cells Rare Amorphous Sediment Not seen Urine Bacteria Rare Urine Mucus Not seen [place] Results Last 24 Hours: Microbiology 07/25/17 18:19 Specimen Source - Preliminary Sputum, Induced Fungus Mold Identification - Preliminary Med Orders - Current: Current Medications Acetaminophen (Tylenol) 650 mg PO Q4H PRN PRN Reason: Pain (Mild 1-3)/fever Last Admin: 07/29/17 17:55 Dose: 650 mg Alprazolam (Xanax) 0.5 - 1 mg PO Q4H PRN PRN Reason: Anxiety Last Admin: 08/01/17 10:25 Dose: 0.5 mg Arformoterol Tartrate (Brovana) 15 mcg INH BIDRT [facility] Last Admin: 08/01/17 07:16 Dose: 15 mcg Aspirin (Halfprin) 81 mg PO DAILY [facility] Last Admin: 08/01/17 08:10 Dose: 81 mg Benzocaine/Menthol (Cepacol Sore Throat) 1 lozenge MUCMEM ASDIRECTED PRN PRN Reason: sore throat Last Admin: 07/28/17 13:25 Dose: 1 sheba Benzonatate (Tessalon Perles) 100 mg PO TID PRN PRN Reason: Cough Last Admin: 08/01/17 01:15 Dose: 100 mg Budesonide (Pulmicort) 0.5 mg INH BIDRT [facility] Last Admin: 08/01/17 07:16 Dose: 0.5 mg Citalopram Hydrobromide (Celexa) 10 mg PO BEDTIME [facility] Last Admin: 07/31/17 21:57 Dose: 10 mg Docusate Sodium (Colace) 100 mg PO BID PRN PRN Reason: Constipation Last Admin: 07/27/17 10:48 Dose: 100 mg Doxycycline Hyclate (Vibramycin) 100 mg PO BID [facility] Last Admin: 08/01/17 08:13 Dose: 100 mg Enoxaparin Sodium (Lovenox) 30 mg SUBCUT DAILY [facility] Last Admin: 08/01/17 08:14 Dose: 30 mg Fluconazole (Diflucan) 200 mg PO DAILY [facility] Last Admin: 08/01/17 10:23 Dose: 200 mg Furosemide (Lasix) 40 mg PO DAILY [facility] Guaifenesin (Mucinex) 600 mg PO Q12H PRN PRN Reason: SECRETIONS Last Admin: 07/30/17 19:29 Dose: 600 mg Hydralazine HCl (Apresoline) 10 mg PO Q6H [facility] Lactobacillus Rhamnosus (Culturelle) 2 cap PO BID [facility] Last Admin: 08/01/17 08:10 Dose: 2 cap Levalbuterol HCl (Xopenex) 1.25 mg NEB Q4H PRN PRN Reason: Shortness of Breath Last Admin: 07/31/17 06:09 Dose: 1.25 mg Levalbuterol HCl (Xopenex) 1.25 mg NEB QIDRT [facility] Last Admin: 08/01/17 14:35 Dose: 1.25 mg Lisinopril (Prinivil) 10 mg PO BID [facility] Last Admin: 08/01/17 08:13 Dose: 10 mg Magnesium Hydroxide (Milk Of Magnesia) 30 ml PO BID PRN PRN Reason: Constipation Ondansetron HCl (Zofran Odt) 4 mg PO Q6H PRN PRN Reason: Nausea able to take PO Last Admin: 07/31/17 17:52 Dose: 4 mg Ondansetron HCl (Zofran) 4 mg IV Q6H PRN PRN Reason: Nausea/Vomiting Last Admin: 08/01/17 07:46 Dose: 4 mg Oxycodone HCl (Oxycodone) 5 - 10 mg PO Q4H PRN PRN Reason: Pain Last Admin: 07/28/17 23:02 Dose: 5 mg Pantoprazole Sodium (Protonix) 40 mg PO ACBREAKFAST [facility] Last Admin: 08/01/17 07:54 Dose: 40 mg Polyethylene Glycol (Miralax) 17 gm PO BEDTIME PRN PRN Reason: Constipation Last Admin: 07/27/17 20:42 Dose: 17 gm Potassium Chloride (Klor-Con M20) 40 meq PO ONETIME ONE Stop: 08/01/17 15:27 Propranolol HCl (Inderal La) 60 mg PO DAILY [facility] Last Admin: 08/01/17 10:24 Dose: 60 mg Simvastatin (Zocor) 20 mg PO BEDTIME [facility] Last Admin: 07/31/17 21:57 Dose: 20 mg Discontinued Medications Albuterol (Proventil Neb Soln) 2.5 mg NEB Q4H PRN PRN Reason: Shortness Of Breath/wheezing Albuterol/Ipratropium (Duoneb 3.0-0.5 Mg/3 Ml) 3 ml NEB ONETIME ONE Stop: 07/25/17 09:33 Last Admin: 07/25/17 09:47 Dose: 3 ml Albuterol/Ipratropium (Duoneb 3.0-0.5 Mg/3 Ml) 3 ml NEB QIDRT [facility] Last Admin: 07/28/17 10:31 Dose: 3 ml Alprazolam (Xanax) 0.25 mg PO BID [facility] Last Admin: 07/26/17 20:06 Dose: 0.25 mg Alprazolam (Xanax) 0.25 mg PO Q6H PRN PRN Reason: Anxiety Last Admin: 07/25/17 17:12 Dose: 0.25 mg Alprazolam (Xanax) 0.5 - 1 mg PO Q4H PRN PRN Reason: Anxiety Last Admin: 07/28/17 15:09 Dose: 0.5 mg Enoxaparin Sodium (Lovenox) 40 mg SUBCUT DAILY [facility] Last Admin: 07/27/17 08:52 Dose: 40 mg Furosemide (Lasix) 40 mg PO DAILY [facility] Last Admin: 08/01/17 08:11 Dose: 40 mg Hydralazine HCl (Apresoline) 5 mg PO Q8H [facility] Last Admin: 08/01/17 08:09 Dose: 5 mg Hydralazine HCl (Apresoline) 5 mg PO ONETIME ONE Stop: 08/01/17 10:01 Last Admin: 08/01/17 10:17 Dose: 5 mg Lactated Ringer's (Ringers, Lactated) 1,000 mls @ 999 mls/hr IV ASDIRECTED [facility] Last Admin: 07/25/17 10:10 Dose: 999 mls/hr Piperacillin/Tazobactam/ (Dextrose 4.5 gm/ Premix) 100 mls @ 200 mls/hr IV Q6H [facility] Last Admin: 07/25/17 10:10 Dose: 200 mls/hr Potassium Chloride 20 meq/Lidocaine HCl 2 ml/ Sodium Chloride 112 mls @ 56 mls/ hr IV Q2H [facility] Stop: 07/25/17 14:59 Last Admin: 07/25/17 14:44 Dose: 56 mls/hr Levofloxacin/Dextrose 750 mg/ (Premix) 150 mls @ 100 mls/hr IV ONETIME ONE Stop: 07/25/17 13:14 Last Admin: 07/25/17 13:18 Dose: 100 mls/hr Sodium Chloride (Normal Saline) 1,000 mls @ 125 mls/hr IV ASDIRECTED [facility] Last Admin: 07/26/17 06:03 Dose: 125 mls/hr Piperacillin/Tazobactam/ (Dextrose 3.375 gm/ Premix) 50 mls @ 100 mls/hr IV Q6H [facility] Last Admin: 07/31/17 04:18 Dose: 100 mls/hr Potassium Chloride 20 meq/Lidocaine HCl 2 ml/ Sodium Chloride 112 mls @ 56 mls/ hr IV Q2H [facility] Stop: 07/25/17 20:59 Last Admin: 07/25/17 20:39 Dose: 56 mls/hr Levofloxacin/Dextrose 750 mg/ (Premix) 150 mls @ 100 mls/hr IV Q48H [facility] Last Admin: 07/27/17 12:44 Dose: 100 mls/hr Sodium Chloride (Normal Saline) 1,000 mls @ 75 mls/hr IV ASDIRECTED [facility] Last Admin: 07/27/17 07:49 Dose: 75 mls/hr Sodium Chloride (Normal Saline) 1,000 mls @ 25 mls/hr IV ASDIRECTED [facility] Last Admin: 07/27/17 21:30 Dose: 25 mls/hr Doxycycline Hyclate 100 mg/ (Sodium Chloride) 100 mls @ 100 mls/hr IV Q12H [facility] Last Admin: 07/31/17 08:30 Dose: 100 mls/hr Fluconazole/Sodium Chloride (200 mg/ Premix) 100 mls @ 100 mls/hr IV Q24H [facility] Last Admin: 07/30/17 14:55 Dose: 100 mls/hr Potassium Chloride (Kcl 20 Meq In Water 100 Ml) 100 mls @ 50 mls/hr IV .STK- MED ONE Stop: 07/31/17 08:09 Potassium Chloride (Kcl 20 Meq In Water 100 Ml) 100 mls @ 50 mls/hr IV .STK- MED ONE Stop: 07/31/17 10:14 Ibuprofen (Motrin) 600 mg PO Q6H PRN PRN Reason: Pain/Fever Last Admin: 07/26/17 17:32 Dose: 600 mg Lidocaine HCl (Xylocaine 1%) 2 ml INJECT ASDIRECTED [facility] Lidocaine HCl (Xylocaine 1%) 2 ml INJECT ASDIRECTED [facility] Lisinopril (Prinivil) 5 mg PO DAILY [facility] Last Admin: 07/30/17 08:11 Dose: 5 mg Lisinopril (Prinivil) 5 mg PO ONETIME ONE Stop: 07/29/17 17:16 Last Admin: 07/29/17 17:51 Dose: 5 mg Lisinopril (Prinivil) 5 mg PO ONETIME ONE Stop: 07/30/17 09:31 Last Admin: 07/30/17 10:14 Dose: 5 mg Lisinopril (Prinivil) 10 mg PO DAILY [facility] Methylprednisolone Sodium Succinate (Solu-Medrol) 125 mg IVPUSH ONETIME ONE Stop: 07/25/17 10:45 Last Admin: 07/25/17 11:07 Dose: 125 mg Methylprednisolone Sodium Succinate (Solu-Medrol) 62.5 mg IVPUSH Q8H [facility] Last Admin: 07/27/17 04:52 Dose: 62.5 mg Ondansetron HCl (Zofran) 4 mg IVPUSH ONETIME ONE Stop: 07/25/17 10:56 Last Admin: 07/25/17 11:07 Dose: 4 mg Potassium Chloride (Klor-Con M20) 40 meq PO ONETIME ONE Stop: 07/25/17 10:29 Last Admin: 07/25/17 10:50 Dose: 40 meq Potassium Chloride (Klor-Con M20) 40 meq PO ONETIME ONE Stop: 07/31/17 09:01 Last Admin: 07/31/17 11:10 Dose: 40 meq Potassium Chloride (Klor-Con M20) 40 meq PO ONETIME ONE Stop: 07/31/17 18:01 Last Admin: 07/31/17 17:19 Dose: 40 meq Potassium Chloride (Klor-Con M20) 40 meq PO ONETIME ONE Stop: 08/01/17 10:01 Last Admin: 08/01/17 10:25 Dose: 40 meq Prednisone (Prednisone) 20 mg PO BIDAC [facility] Last Admin: 07/30/17 08:10 Dose: 20 mg Prednisone (Prednisone) 20 mg PO DAILY@0800 [facility] Last Admin: 07/31/17 08:15 Dose: 20 mg - Exam Quality Assessment: Supplemental Oxygen, DVT Prophylaxis General: Alert, Oriented, Cooperative, Mild Distress Lungs: Decreased Breath Sounds. No: Crackles, Rales, Rhonchi, Rub, Stridor, Wheezing Cardiovascular: Regular Rate, Regular Rhythm, No Murmurs GI/Abdominal Exam: Soft, Non-Tender, No Organomegaly, No Distention Extremities: Non-Tender, Pedal Edema Skin: Warm, Dry, Intact - Problem List Review Problem List Initiated/Reviewed/Updated: Yes - My Orders Last 24 Hours: My Active Orders 07/31/17 16:00 Fluconazole [Diflucan] 200 mg PO DAILY 07/31/17 21:00 Doxycycline [Vibramycin] 100 mg PO BID 08/01/17 15:26 Potassium Chloride [Klor-Con M20] 40 meq PO ONETIME ONE 08/01/17 16:00 hydrALAZINE [Apresoline] 10 mg PO Q6H 08/02/17 05:00 BASIC METABOLIC PANEL,BMP [CHEM] Timed CBC WITH AUTO DIFF [HEME] Timed MAGNESIUM [CHEM] Timed 08/02/17 09:00 Furosemide [Lasix] 40 mg PO DAILY - Plan Plan:: ASSESSMENT AND PLAN - Acute bronchitis with COPD exacerbation - continued shortness of breath, cough has improved. White blood cell count elevated, no evidence of new pulmonary infection or urinary tract infection. No other significant symptoms to explain the elevation in white blood cell count. -Continue doxycycline -Continue fluconazole, pending culture results -Supplement oxygen -Scheduled and as needed nebulizers -Probiotics Hypoxic respiratory failure - acute on chronic. Secondary to acute infection and COPD exacerbation as above. Continues to require supplemental oxygen -Management as above Chronic lower extremity edema - good diuresis with resultant improvement in peripheral edema -Continue diuretic therapy Essential hypertension - blood pressure has been stable. Maintenance issues - - DVT prophylaxis - enoxaparin - GI prophylaxis - PPI - Nutrition - regular diet as tolerated Disposition - anticipate discharge back to the [facility] after the hospital stay
[2017-08-01] MEDS: Simvastatin 20 MG Tab PO SCH (20:59)
[2017-08-01] MEDS: Citalopram 10 MG Tab PO SCH (20:59)
[2017-08-02] MEDS: Budesonide 0.5 MG/2 ML Neb Susp INH SCH (07:20)
[2017-08-02] MEDS: Levalbuterol HCl 1.25 MG/3 ML Neb NEB SCH ×2 (07:20→10:41)
[2017-08-02] MEDS: Arformoterol 15 MCG/2 ML Neb Soln INH SCH (07:20)
[2017-08-02] MEDS: hydrALAZINE 10 MG Tab PO SCH ×2 (08:23→10:24)
[2017-08-02] MEDS: Lisinopril 10 MG Tab PO SCH (08:27)
[2017-08-02] MEDS: Pantoprazole 40 MG Tab.CR PO SCH (08:27)
[2017-08-02] MEDS: Propranolol 60 MG Cap.ER PO SCH (08:27)
[2017-08-02] MEDS: ALPRAZolam 0.5 MG Tab PO PRN (08:50)
[2017-08-02] MEDS ORDERED: Furosemide 40 MG Tab PO SCH (09:00)
[2017-08-02] MEDS ORDERED: Magnesium Oxide 400 MG Tab PO SCH ×2 (09:00→12:00)
[2017-08-02] MEDS: Lactobacillus Rhamnosus GG (Probiotic) Cap PO SCH (10:21)
[2017-08-02] MEDS: Fluconazole 100 MG Tab PO SCH (10:21)
[2017-08-02] MEDS: Doxycycline 100 MG Cap PO SCH (10:21)
[2017-08-02] MEDS: Aspirin 81 MG Tab.EC PO SCH (10:22)
[2017-08-02] MEDS: Enoxaparin 30 MG/0.3 ML Syringe SUBCUT SCH ×2 (10:23→10:33)
[2017-08-02] MEDS: Magnesium Sulfate/Water 2 GM in Premix Bag 1 BAG IV ONE ×2 (10:23→10:46)
[2017-08-02] MEDS: oxyCODONE 5 MG Tab PO PRN (10:30)
[2017-08-02] MEDS ORDERED: Bisacodyl 10 MG Supp RECTAL ONE (11:30)
[2017-08-02 11:49] VITALS: BP 128/50
--- NOTE | 2017-08-02 11:55 | PCM.DCSUM1 ---
Discharge Summary - Hospital Course Brief History: Ms. Valdez is an 87-year-old woman who was admitted through the emergency department with increased shortness of breath, cough, and hypoxia secondary to bronchitis with underlying COPD exacerbation. 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 Valdez has a known history of COPD, prior to admission developed increased shortness of breath, weakness, and cough. On evaluation in the emergency department there was no evidence of pulmonary infiltrate but she did have elevation in white blood cell count. At the time of admission influenza a and B antigens were obtained and found to be negative. She was hypoxic and was treated with noninvasive positive pressure ventilation for respiratory support as well as supplemental oxygen. After a few days of hospitalization and IV antibiotic therapy she still experienced ongoing shortness of breath and cough. Sputum cultures had grown out east as well as a possible fungus that is yet to be identified. She was started on oral fluconazole and doxycycline was added to antibiotic regimen. After that she experienced slow improvement in symptoms including shortness of breath and cough. By the time of discharge she had persistent shortness of breath although improved from admission, cough and improve significantly. She had significant peripheral edema and was given daily doses of oral furosemide and over the last several days of her hospital stay had an excellent diuresis. She remained very weak and will require restorative physical therapy as well as occupational therapy at the intermediate. She will remain on supplemental oxygen 3 L/m via nasal cannula. Oral antibiotic therapy with doxycycline will be continued another 4 days in the fluconazole will be continued another 7 days pending final review of culture and possible fungus by the reference lab. She will be on a 2 g sodium diet and activity will be as tolerated. Follow-up with primary care will be at the intermediate as needed. Laboratory studies will be obtained on August 06 including a BMP and magnesium. - Patient Instructions Diet: Low Sodium Activity: As Tolerated Other/Special Instructions: Please obtain lab at the intermediate on August 06; BMP and magnesium - Discharge Plan Prescriptions/Med Rec: Doxycycline Calcium [IMW: Doxycycline] 100 mg PO BID #8 capsule Fluconazole [Diflucan] 200 mg PO DAILY #7 tablet hydrALAZINE [Apresoline] 10 mg PO Q6H #120 tablet Lactobacillus Rhamnosus GG [Culturelle] 1 cap PO BID #60 cap Levalbuterol HCl [Xopenex] 1.25 mg NEB Q4H PRN #120 neb PRN Reason: Shortness Of Breath Lisinopril [Prinivil] 10 mg PO BID #60 tablet Magnesium Oxide 800 mg PO BID #120 tablet traMADol [Ultram] 50 mg PO Q4H PRN #30 tab PRN Reason: Pain Home Medications: Home Meds Aspirin [Sac Aspirin] 81 mg PO DAILY 08/31/13 [History] Budesonide [Pulmicort] 0.5 mg IH BID 08/31/13 [History] Omeprazole [Prilosec] 20 mg PO DAILY 08/31/13 [History] Simvastatin [Zocor] 20 mg PO BEDTIME 08/31/13 [History] ALPRAZolam [Xanax] 0.25 mg PO BID 04/19/15 [History] Albuterol [Proair HFA] 2 gm INH Q4HR PRN 10/22/15 [History] Acetaminophen 650 mg PO Q4H PRN 06/14/17 [History] Docusate Sodium [Colace] 1 cap PO BID PRN 06/14/17 [History] Ipratropium [Atrovent] 1 dose INH QID PRN 06/14/17 [History] Lutein Extract/Zeaxanthin Ext [Lutein 15 MG Softgel] 1 tab PO DAILY 06/14/17 [ History] Polyethylene Glycol 3350 [MiraLAX] 17 gm PO BEDTIME 06/14/17 [History] Furosemide [Lasix] 40 mg PO DAILY #30 tablet 06/21/17 [Rx] Cyclobenzaprine [Flexeril] 5 mg PO BEDTIME 07/02/17 [History] ALPRAZolam [Xanax] 1 tab PO Q6H PRN 07/25/17 [History] Amino Acids/Protein Hydrolys [Pro-Stat Max Liquid] 30 ml PO DAILY 07/25/17 [ History] Arformoterol [Brovana] 1 puff INH BID 07/25/17 [History] Calcium Carbonate/Vitamin D3 [Calcium 600 + Vit D 200] 1 tab PO BID 07/25/17 [ History] Citalopram Hydrobromide [Celexa] 10 mg PO BEDTIME 07/25/17 [History] Ipratropium [place] 1 vial INH BID 07/25/17 [History] guaiFENesin/Dextromethorphan [Mucinex Dm ER 600-30 mg Tablet] 1 tab PO BID PRN 07/25/17 [History] Doxycycline Calcium [IMW: Doxycycline] 100 mg PO BID #8 capsule 08/02/17 [Rx] Fluconazole [Diflucan] 200 mg PO DAILY #7 tablet 08/02/17 [Rx] Lactobacillus Rhamnosus GG [Culturelle] 1 cap PO BID #60 cap 08/02/17 [Rx] Levalbuterol HCl [Xopenex] 1.25 mg NEB Q4H PRN #120 neb 08/02/17 [Rx] Lisinopril [Prinivil] 10 mg PO BID #60 tablet 08/02/17 [Rx] Magnesium Oxide 800 mg PO BID #120 tablet 08/02/17 [Rx] hydrALAZINE [Apresoline] 10 mg PO Q6H #120 tablet 08/02/17 [Rx] traMADol [Ultram] 50 mg PO Q4H PRN #30 tab 08/02/17 [Rx] Forms: ED Department Discharge Referrals: Dennis Ruiz MD [Primary Care Provider] - - Patient Data Vitals - Most Recent: Last Vital Signs Temp 96.1 F 08/02/17 11:44 Pulse 45 L 08/02/17 11:44 Resp 20 08/02/17 11:44 BP 128/50 L 08/02/17 11:44 Pulse Ox 98 08/02/17 11:44 Weight - Most Recent: 104 lb 4.458 oz I&O - Last 24 hours: Intake & Output 08/01/17 08/02/17 08/02/17 22:59 06:59 14:59 Intake Total 400 240 Output Total 550 1450 300 Balance -150 -1210 -300 Lab Results - Last 24 hrs: Laboratory Results - last 24 hr 08/01/17 08/02/17 08/02/17 Range/Units 12:20 05:30 05:30 WBC 17.5 H (4.5-11.0) K/uL RBC 3.99 (3.30-5.50) M/uL Hgb 12.1 (12.0-15.0) g/dL Hct 37.4 (36.0-48.0) % MCV 94 (80-98) fL MCH 30 (27-31) pg MCHC 32 (32-36) % Plt Count 351 (150-400) K/uL Neut % (Auto) 75 H (36-66) % Lymph % (Auto) 16 L (24-44) % Ray % (Auto) 7 H (2-6) % Eos % (Auto) 2 (2-4) % Baso % (Auto) 0 (0-1) % Sodium 131 L (140-148) mmol/L Potassium 3.8 (3.6-5.2) mmol/L Chloride 88 L (100-108) mmol/L Carbon Dioxide 42 H (21-32) mmol/L Anion Gap 4.8 L (5.0-14.0) mmol/L BUN 15 (7-18) mg/dL Creatinine 0.9 (0.6-1.0) mg/dL Est Cr Clr Drug Dosing 31.63 mL/min Estimated GFR (MDRD) 59 L (>60) Glucose 93 (74-106) mg/dL Calcium 8.9 (8.5-10.1) mg/dL Magnesium 1.2 L (1.8-2.4) mg/dL Urine Color Yellow Urine Appearance Slightly cloudy Urine pH 8.0 (4.5-8.0) Ur Specific [place] 1.010 (1.008-1.030) Urine Protein Negative (NEGATIVE) mg/dL Urine Glucose (UA) Normal (NEGATIVE) mg/dL Urine Ketones Negative (NEGATIVE) mg/dL Urine Occult Blood Negative (NEGATIVE) Urine Nitrite Negative (NEGATIVE) Urine Bilirubin Negative (NEGATIVE) Urine Urobilinogen Normal (NORMAL) mg/dL Ur Leukocyte Esterase Negative (NEGATIVE) Urine RBC Not seen (0-5) Urine WBC 0-5 (0-5) Ur Epithelial Cells Rare Amorphous Sediment Not seen Urine Bacteria Rare Urine Mucus Not seen Med Orders - Current: Current Medications Acetaminophen (Tylenol) 650 mg PO Q4H PRN PRN Reason: Pain (Mild 1-3)/fever Last Admin: 07/29/17 17:55 Dose: 650 mg Alprazolam (Xanax) 0.5 - 1 mg PO Q4H PRN PRN Reason: Anxiety Last Admin: 08/02/17 08:50 Dose: 1 mg Arformoterol Tartrate (Brovana) 15 mcg INH BIDRT [facility] Last Admin: 08/02/17 07:20 Dose: 15 mcg Aspirin (Halfprin) 81 mg PO DAILY [facility] Last Admin: 08/02/17 10:22 Dose: 81 mg Benzocaine/Menthol (Cepacol Sore Throat) 1 lozenge MUCMEM ASDIRECTED PRN PRN Reason: sore throat Last Admin: 07/28/17 13:25 Dose: 1 sheba Benzonatate (Tessalon Perles) 100 mg PO TID PRN PRN Reason: Cough Last Admin: 08/01/17 01:15 Dose: 100 mg Budesonide (Pulmicort) 0.5 mg INH BIDRT [facility] Last Admin: 08/02/17 07:20 Dose: 0.5 mg Citalopram Hydrobromide (Celexa) 10 mg PO BEDTIME [facility] Last Admin: 08/01/17 20:59 Dose: 10 mg Docusate Sodium (Colace) 100 mg PO BID PRN PRN Reason: Constipation Last Admin: 07/27/17 10:48 Dose: 100 mg Doxycycline Hyclate (Vibramycin) 100 mg PO BID [facility] Last Admin: 08/02/17 10:21 Dose: 100 mg Enoxaparin Sodium (Lovenox) 30 mg SUBCUT DAILY [facility] Last Admin: 08/02/17 10:33 Dose: Not Given Fluconazole (Diflucan) 200 mg PO DAILY [facility] Last Admin: 08/02/17 10:21 Dose: 200 mg Furosemide (Lasix) 40 mg PO DAILY [facility] Last Admin: 08/02/17 08:27 Dose: 40 mg Guaifenesin (Mucinex) 600 mg PO Q12H PRN PRN Reason: SECRETIONS Last Admin: 07/30/17 19:29 Dose: 600 mg Hydralazine HCl (Apresoline) 10 mg PO Q6H [facility] Last Admin: 08/02/17 10:24 Dose: 10 mg Lactobacillus Rhamnosus (Culturelle) 2 cap PO BID [facility] Last Admin: 08/02/17 10:21 Dose: 2 cap Levalbuterol HCl (Xopenex) 1.25 mg NEB Q4H PRN PRN Reason: Shortness of Breath Last Admin: 07/31/17 06:09 Dose: 1.25 mg Levalbuterol HCl (Xopenex) 1.25 mg NEB QIDRT [facility] Last Admin: 08/02/17 10:41 Dose: 1.25 mg Lisinopril (Prinivil) 10 mg PO BID [facility] Last Admin: 08/02/17 08:27 Dose: 10 mg Magnesium Hydroxide (Milk Of Magnesia) 30 ml PO BID PRN PRN Reason: Constipation Magnesium Oxide (Magnesium Oxide) 800 mg PO BID [facility] Ondansetron HCl (Zofran Odt) 4 mg PO Q6H PRN PRN Reason: Nausea able to take PO Last Admin: 07/31/17 17:52 Dose: 4 mg Ondansetron HCl (Zofran) 4 mg IV Q6H PRN PRN Reason: Nausea/Vomiting Last Admin: 08/01/17 07:46 Dose: 4 mg Oxycodone HCl (Oxycodone) 5 - 10 mg PO Q4H PRN PRN Reason: Pain Last Admin: 08/02/17 10:30 Dose: 5 mg Pantoprazole Sodium (Protonix) 40 mg PO ACBREAKFAST [facility] Last Admin: 08/02/17 08:27 Dose: 40 mg Polyethylene Glycol (Miralax) 17 gm PO BEDTIME PRN PRN Reason: Constipation Last Admin: 07/27/17 20:42 Dose: 17 gm Propranolol HCl (Inderal La) 60 mg PO DAILY [facility] Last Admin: 08/02/17 08:27 Dose: 60 mg Simvastatin (Zocor) 20 mg PO BEDTIME [facility] Last Admin: 08/01/17 20:59 Dose: 20 mg Discontinued Medications Albuterol (Proventil Neb Soln) 2.5 mg NEB Q4H PRN PRN Reason: Shortness Of Breath/wheezing Albuterol/Ipratropium (Duoneb 3.0-0.5 Mg/3 Ml) 3 ml NEB ONETIME ONE Stop: 07/25/17 09:33 Last Admin: 07/25/17 09:47 Dose: 3 ml Albuterol/Ipratropium (Duoneb 3.0-0.5 Mg/3 Ml) 3 ml NEB QIDRT [facility] Last Admin: 07/28/17 10:31 Dose: 3 ml Alprazolam (Xanax) 0.25 mg PO BID [facility] Last Admin: 07/26/17 20:06 Dose: 0.25 mg Alprazolam (Xanax) 0.25 mg PO Q6H PRN PRN Reason: Anxiety Last Admin: 07/25/17 17:12 Dose: 0.25 mg Alprazolam (Xanax) 0.5 - 1 mg PO Q4H PRN PRN Reason: Anxiety Last Admin: 07/28/17 15:09 Dose: 0.5 mg Bisacodyl (Dulcolax) 10 mg RECTAL ONETIME ONE Stop: 08/02/17 11:31 Enoxaparin Sodium (Lovenox) 40 mg SUBCUT DAILY [facility] Last Admin: 07/27/17 08:52 Dose: 40 mg Furosemide (Lasix) 40 mg PO DAILY [facility] Last Admin: 08/01/17 08:11 Dose: 40 mg Hydralazine HCl (Apresoline) 5 mg PO Q8H [facility] Last Admin: 08/01/17 08:09 Dose: 5 mg Hydralazine HCl (Apresoline) 5 mg PO ONETIME ONE Stop: 08/01/17 10:01 Last Admin: 08/01/17 10:17 Dose: 5 mg Lactated Ringer's (Ringers, Lactated) 1,000 mls @ 999 mls/hr IV ASDIRECTED [facility] Last Admin: 07/25/17 10:10 Dose: 999 mls/hr Piperacillin/Tazobactam/ (Dextrose 4.5 gm/ Premix) 100 mls @ 200 mls/hr IV Q6H [facility] Last Admin: 07/25/17 10:10 Dose: 200 mls/hr Potassium Chloride 20 meq/Lidocaine HCl 2 ml/ Sodium Chloride 112 mls @ 56 mls/ hr IV Q2H [facility] Stop: 07/25/17 14:59 Last Admin: 07/25/17 14:44 Dose: 56 mls/hr Levofloxacin/Dextrose 750 mg/ (Premix) 150 mls @ 100 mls/hr IV ONETIME ONE Stop: 07/25/17 13:14 Last Admin: 07/25/17 13:18 Dose: 100 mls/hr Sodium Chloride (Normal Saline) 1,000 mls @ 125 mls/hr IV ASDIRECTED [facility] Last Admin: 07/26/17 06:03 Dose: 125 mls/hr Piperacillin/Tazobactam/ (Dextrose 3.375 gm/ Premix) 50 mls @ 100 mls/hr IV Q6H [facility] Last Admin: 07/31/17 04:18 Dose: 100 mls/hr Potassium Chloride 20 meq/Lidocaine HCl 2 ml/ Sodium Chloride 112 mls @ 56 mls/ hr IV Q2H [facility] Stop: 07/25/17 20:59 Last Admin: 07/25/17 20:39 Dose: 56 mls/hr Levofloxacin/Dextrose 750 mg/ (Premix) 150 mls @ 100 mls/hr IV Q48H [facility] Last Admin: 07/27/17 12:44 Dose: 100 mls/hr Sodium Chloride (Normal Saline) 1,000 mls @ 75 mls/hr IV ASDIRECTED [facility] Last Admin: 07/27/17 07:49 Dose: 75 mls/hr Sodium Chloride (Normal Saline) 1,000 mls @ 25 mls/hr IV ASDIRECTED [facility] Last Admin: 07/27/17 21:30 Dose: 25 mls/hr Doxycycline Hyclate 100 mg/ (Sodium Chloride) 100 mls @ 100 mls/hr IV Q12H [facility] Last Admin: 07/31/17 08:30 Dose: 100 mls/hr Fluconazole/Sodium Chloride (200 mg/ Premix) 100 mls @ 100 mls/hr IV Q24H [facility] Last Admin: 07/30/17 14:55 Dose: 100 mls/hr Potassium Chloride (Kcl 20 Meq In Water 100 Ml) 100 mls @ 50 mls/hr IV .STK- MED ONE Stop: 07/31/17 08:09 Potassium Chloride (Kcl 20 Meq In Water 100 Ml) 100 mls @ 50 mls/hr IV .STK- MED ONE Stop: 07/31/17 10:14 Magnesium Sulfate 2 gm/ Premix 50 mls @ 25 mls/hr IV ONETIME ONE Stop: 08/02/17 10:59 Last Admin: 08/02/17 10:46 Dose: Not Given Ibuprofen (Motrin) 600 mg PO Q6H PRN PRN Reason: Pain/Fever Last Admin: 07/26/17 17:32 Dose: 600 mg Lidocaine HCl (Xylocaine 1%) 2 ml INJECT ASDIRECTED [facility] Lidocaine HCl (Xylocaine 1%) 2 ml INJECT ASDIRECTED [facility] Lisinopril (Prinivil) 5 mg PO DAILY [facility] Last Admin: 07/30/17 08:11 Dose: 5 mg Lisinopril (Prinivil) 5 mg PO ONETIME ONE Stop: 07/29/17 17:16 Last Admin: 07/29/17 17:51 Dose: 5 mg Lisinopril (Prinivil) 5 mg PO ONETIME ONE Stop: 07/30/17 09:31 Last Admin: 07/30/17 10:14 Dose: 5 mg Lisinopril (Prinivil) 10 mg PO DAILY [facility] Magnesium Oxide (Magnesium Oxide) 400 mg PO BID [facility] Last Admin: 08/02/17 10:23 Dose: 400 mg Methylprednisolone Sodium Succinate (Solu-Medrol) 125 mg IVPUSH ONETIME ONE Stop: 07/25/17 10:45 Last Admin: 07/25/17 11:07 Dose: 125 mg Methylprednisolone Sodium Succinate (Solu-Medrol) 62.5 mg IVPUSH Q8H [facility] Last Admin: 07/27/17 04:52 Dose: 62.5 mg Ondansetron HCl (Zofran) 4 mg IVPUSH ONETIME ONE Stop: 07/25/17 10:56 Last Admin: 07/25/17 11:07 Dose: 4 mg Potassium Chloride (Klor-Con M20) 40 meq PO ONETIME ONE Stop: 07/25/17 10:29 Last Admin: 07/25/17 10:50 Dose: 40 meq Potassium Chloride (Klor-Con M20) 40 meq PO ONETIME ONE Stop: 07/31/17 09:01 Last Admin: 07/31/17 11:10 Dose: 40 meq Potassium Chloride (Klor-Con M20) 40 meq PO ONETIME ONE Stop: 07/31/17 18:01 Last Admin: 07/31/17 17:19 Dose: 40 meq Potassium Chloride (Klor-Con M20) 40 meq PO ONETIME ONE Stop: 08/01/17 10:01 Last Admin: 08/01/17 10:25 Dose: 40 meq Potassium Chloride (Klor-Con M20) 40 meq PO ONETIME ONE Stop: 08/01/17 16:01 Last Admin: 08/01/17 16:28 Dose: 40 meq Prednisone (Prednisone) 20 mg PO BIDAC [facility] Last Admin: 07/30/17 08:10 Dose: 20 mg Prednisone (Prednisone) 20 mg PO DAILY@0800 [facility] Last Admin: 07/31/17 08:15 Dose: 20 mg *Q Meaningful Use (DIS) - VTE *Q VTE Criteria *Q: - Stroke *Q Stroke Criteria *Q: - AMI *Q AMI Criteria *Q:
== END 2017-08-02 13:15 | DRG 202 ==
LOC: JP.ED 09:07 → JP.MS 11:46
PROVIDERS: ADMIT Internal Medicine; ATTEND Hospitalist
DX: J20.9 Acute bronchitis, unspecified (principal); J44.0 Chronic obstructive pulmonary disease with (acute) lower respiratory infection; J96.21 Acute and chronic respiratory failure with hypoxia; J44.1 Chronic obstructive pulmonary disease with (acute) exacerbation; I12.9 Hypertensive chronic kidney disease with stage 1 through stage 4 chronic kidney disease, or unspecified chronic kidney disease; N18.3 Chronic kidney disease, stage 3 (moderate); R53.1 Weakness; Z66 Do not resuscitate; I87.2 Venous insufficiency (chronic) (peripheral); R60.9 Edema, unspecified; F32.9 Major depressive disorder, single episode, unspecified; F41.9 Anxiety disorder, unspecified; Z95.5 Presence of coronary angioplasty implant and graft; I25.2 Old myocardial infarction; E78.00 Pure hypercholesterolemia, unspecified; H54.7 Unspecified visual loss; Z79.82 Long term (current) use of aspirin; Z88.5 Allergy status to narcotic agent
CPT/HCPCS: 36415; 36600; 71045 ×2; 80053; 81001; 82803; 83605; 83735; 83880; 84484; 85025; 86140; 87040 ×2; 87804 ×2; 94640; 96361; 96365; 96375; 99285; A9270; J2405; J2543; J2930; J3480; J7030; J7120; J7620; 80048; 85027; 87070; 87077; 87107; 87205; 87493; 99284; J1450; J1650; J1956; J3475; J7040; J7605; J7612; J7626